=== PATIENT | male | born 1955 | race Caucasian/White ===

== ENCOUNTER 2018-02-06 08:24 | Inpatient (IN) ==
[2018-02-06] MEDS ORDERED: 0.9 % SODIUM CHLORIDE 1,000 ML IV ONE ×2 (08:35→09:46)
--- NOTE | 2018-02-06 09:08 | XRay Report ---
CLINICAL INFORMATION: Cough and shortness of breath COMPARISON: 02/04/2018 FINDINGS: The heart size, mediastinum and pulmonary vessels are unremarkable. The lungs are clear. There are no effusions. The bones and soft tissues are within normal limits. IMPRESSION: Normal chest. Interpreted and Authenticated by: Russel Leahy 02/06/18
[2018-02-06 09:46] LABS: Mean Cell Volume 87.1 fL (80.0-100.0); Mean Corpuscular HGB Conc 33.6 g/dL (31.0-36.0); Mean Corpuscular Hemoglobin 29.3 pg (26.0-34.0); Platelet Count 260 K/mcL (140-440); RBC 3.94 M/mcL (4.50-5.90)
[2018-02-06] MEDS ORDERED: IPRATROPIUM/ALBUTEROL 3 ML AMPUL.NEB NEB ONE (09:46)
[2018-02-06] MEDS ORDERED: methylPREDNISolone SOD SUCC 125 MG/2 ML VIAL IV ONE (09:48)
[2018-02-06] MEDS ORDERED: PIPERACILLIN SODIUM/TAZOBACTAM 3.375 GM in DEXTROSE 5% IN WATER 50 ML IV ONE (09:48)
--- NOTE | 2018-02-06 10:02 | Emergency Department Note ---
SOB HPI - General Source: patient Mode of arrival: wheelchair Limitations: no limitations <Bharathi Ortiz - Last Filed: 02/06/18 10:02> - General Source: patient, family <Desmond Nunes - Last Filed: 02/07/18 08:47> - General Chief Complaint: Shortness of Breath/Dyspnea Stated Complaint: Cough/sob Time Seen by Provider: 02/06/18 09:26 - History of Present Illness this is a 63 year old male coming into the ER with increasing c/o shortness of breath. States feels cold all the time. states feels fatigued all the time. notes decreased appetite. Was seen in the ER by Dr. Brooks and at that time was diagnosed with bronchitis. Prescribed antibiotics. States felt a bit better but just got worse today. went and saw the foot doctor for his diabetic ulcer on his leg today but was sent to the ER. denies chest pain, denies fevers, denies nausea, vomiting. does report loose stool but denies blood in stool. Patient reports glucose levels average 150 but last glucose measured was over 300 with an A1C over 10. Patient denies smoking hx but medical records states prior smoker. (Bharathi Ortiz) I saw this patient with student Dr. Bharathi Ortiz, fourth year medical student. I agree with his documentation above. I also was contacted about this patient by Dr. Hayes realty specialist who sees him as well-he advised me that he would be willing to consult on this patient if the patient was admitted but that he sent the patient over secondary to cough 63-year-old male with shortness of breath fatigue decreased appetite. Previously diagnosed with bronchitis 2 days ago and started on antibiotics but no steroids. Not getting better. Has diabetic ulcers, nonhealing wounds on right foot. Reports control of diabetes but A1c is over 10 (Desmond Nunes) - Related Data Home Medications Medication Instructions Recorded Confirmed aspirin 81 mg tablet,delayed 81 mg PO QDAY tab 04/07/15 02/06/18 release lisinopril 20 1 tab PO QDAY 02/03/18 02/06/18 mg-hydrochlorothiazide 12.5 mg tablet Blood Sugar Diagnostic [Contour] 0 b .ROUTE .MEDSUPPLY 02/06/18 02/06/18 Pen Needle, Diabetic [Incontrol 0 b .ROUTE .MEDSUPPLY 02/06/18 02/06/18 Pen Needle] Previous Rx's Medication Instructions Recorded glucagon (human recombinant) 1 mg 1 mg IM ONCE PRN #1 each 05/10/16 injection kit insulin glargine (U-300) 300 40 unit SUB-Q QHS #6 ml 11/25/17 unit/mL (1.5 mL) subcutaneous pen insulin lispro (U-100) 100 unit/mL See Label Instructions SUB-Q TID 12/27/17 subcutaneous pen #15 ml atorvastatin 20 mg tablet 20 mg PO QDAY #90 tab 01/13/18 Azithromycin [Zithromax] 250 mg PO DAILY #4 tab 02/04/18 Allergies Allergy/AdvReac Type Severity Reaction Status Date / Time No Known Drug Allergies Allergy Verified 02/06/18 08:25 Review of Systems All systems ED: reviewed and negative except as stated. <Desmond Nunes - Last Filed: 02/07/18 08:47> Past Medical History - Past Medical History Medical history: Reports: DM Surgical history ED: Reports: non-contributory - Social History smoking status: Former smoker <Bharathi Ortiz - Last Filed: 02/06/18 10:02> - Past Medical History Attestation: Yes: The following information was validated with the patient. Medical history: Reports: DM (With associated neuropathy), hyperlipidemia, other (Essential tremor, osteomyelitis) Surgical history ED: Reports: orthopedic, other (Prior amputation, multiple foot surgeries) - Social History smoking status: Former smoker <Desmond Nunes - Last Filed: 02/07/18 08:47> - Past Medical History PMFSH Narrative: Medical History Diabetic peripheral neuropathy (Chronic) Diabetic neuropathy (Chronic) Pain in left hip (Chronic) Pain in joint, pelvic region and thigh (Chronic) Corneal abrasion (Chronic) Foot ulcer (Chronic) Ulcer of lower limbs, except pressure ulcer (Chronic) Tremor, essential (Chronic) Peripheral neuropathy (Chronic) Osteomyelitis (Resolved) History of noncompliance with medical treatment (Chronic) Microalbuminuria (Chronic) Hypertension, essential (Chronic) Hyperlipidemia (Chronic) DM (diabetes mellitus), type 2, uncontrolled (Chronic) DM type 2 (diabetes mellitus, type 2) (Chronic) 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 Absent: wheezes, stridor Cardiovascular: Present: tachycardia, normal heart sounds Neurological: Present: alert, oriented X3 Psychiatric: Present: flat affect <Bharathi Ortiz - Last Filed: 02/06/18 10:02> <Desmond Nunes - Last Filed: 02/07/18 08:47> Thin male ill-appearing. Normocephalic atraumatic. Conjunctive are clear sclerae white and nonicteric. No nasal discharge but audible congestion. Oropharynx is pink and moist. Neck is supple without lymphadenopathy thyromegaly appreciated. Lungs initially with tight cough and end expiratory wheeze but this improved markedly after DuoNeb treatment. Heart is regular rate and rhythm no murmur appreciated. Abdomen soft nontender nondistended. No peritoneal signs or guarding. Right foot shows several open ulcers appear to be poorly healing. Please see wound care for complete description. I do not see purulent drainage however. +2 radial pulse. Alert oriented (Desmond Nunes) Vital Signs Temperature 96.5 F L 02/06/18 08:25 Pulse Rate 108 H 02/06/18 08:25 Respiratory Rate 18 02/06/18 08:25 Blood Pressure 146/64 02/06/18 08:25 Pulse Oximetry (%) 99 02/06/18 08:25 Temperature 98.6 F 02/07/18 04:01 Pulse Rate 80 02/07/18 06:01 Respiratory Rate 30 H 02/07/18 06:01 Blood Pressure 112/69 02/07/18 06:01 Pulse Oximetry (%) 97 02/07/18 06:01 Shortness of Breath/Dyspnea - Lab Data Result diagrams: 02/06/18 08:55 02/06/18 08:54 <Bharathi Ortiz - Last Filed: 02/06/18 10:02> - Lab Data Lab results reviewed: Yes I reviewed the patient's lab results. Result diagrams: 02/07/18 03:56 02/07/18 03:56 - Radiology Data Radiology results reviewed: Yes I reviewed the patient's radiology results. - EKG Data EKG attestation: Yes I reviewed and interpreted this EKG. <Desmond Nunes - Last Filed: 02/07/18 08:47> - Lab Data Lab Results 02/06/18 02/06/18 02/06/18 Range/Units 08:54 08:54 08:54 WBC (4.5-11.0) K/mcL RBC (4.50-5.90) M/mcL Hgb (13.5-16.5) g/dL Hct (41.0-55.0) % MCV (80.0-100.0) fL MCH (26.0-34.0) pg MCHC (31.0-36.0) g/dL RDW (11.5-14.5) % Plt Count (140-440) K/mcL MPV (7.4-10.4) fL Total Counted Seg Neutrophils % (38-78) % Band Neutrophils % (0-10) % Lymphocytes % (15-49) % Monocytes % (Manual) (1-12) % Eosinophils % (Manual) (0-7) % Platelet Estimate (NORMAL) RBC Morphology (NORMAL) ESR (0-15) mm/hr VBG Lactic Acid 4.9 H* (0.5-2.2) mmol/L Sodium 130 L (133-145) mmol/L Potassium 4.3 (3.3-5.1) mmol/L Chloride 91 L (96-108) mmol/L Carbon Dioxide 18 L (22-30) mmol/L Anion Gap 21.0 H (8-16) BUN 59 H (8-23) mg/dl Creatinine 1.7 H (0.7-1.2) mg/dl GFR Calculation 42 Glucose 316 H (70-105) mg/dL Calcium 9.1 (8.6-10.4) mg/dl Total Bilirubin 1.6 H (0.0-1.0) mg/dL AST 20 (0-37) U/l ALT 26 (0-40) U/l Alkaline Phosphatase 91 (39-117) U/L C-Reactive Protein (0.0-0.8) mg/dl Total Protein 8.0 (5.9-8.4) gm/dL Albumin 3.8 (3.2-5.2) gm/dL Globulin 4.2 H (2.2-3.7) gm/dL Albumin/Globulin Ratio 0.9 L (1.0-2.3) Procalcitonin 1.49 (<0.10) ng/mL Urine Color Urine Appearance Urine pH (5.0-9.0) Ur Specific [place] (1.000-1.035) Urine Protein (NEG) mg/dL Urine Glucose (UA) (NEG) mg/dL Urine Ketones (NEG) mg/dL Urine Occult Blood (<0.03) mg/dL Urine Nitrate (NEG) Urine Bilirubin (NEG) mg/dL Urine Urobilinogen (NEG) mg/dL Ur Leukocyte Esterase (NEG) /uL Urine RBC (0-1) /hpf Urine WBC (0-4) /hpf Ur Squamous Epith Cells (0-4) /hpf Urine Bacteria (0) /hpf Hyaline Casts (0-2) /lpf Urine Mucus (0) /hpf Ur Culture Indicated? 02/06/18 02/06/18 02/06/18 Range/Units 08:55 08:55 08:55 WBC 24.7 H (4.5-11.0) K/mcL RBC 3.94 L (4.50-5.90) M/mcL Hgb 11.5 L (13.5-16.5) g/dL Hct 34.4 L (41.0-55.0) % MCV 87.1 (80.0-100.0) fL MCH 29.3 (26.0-34.0) pg MCHC 33.6 (31.0-36.0) g/dL RDW 14.0 (11.5-14.5) % Plt Count 260 (140-440) K/mcL MPV 9.9 (7.4-10.4) fL Total Counted 100 Seg Neutrophils % 84 H (38-78) % Band Neutrophils % 1 (0-10) % Lymphocytes % 4 L (15-49) % Monocytes % (Manual) 10 (1-12) % Eosinophils % (Manual) 1 (0-7) % Platelet Estimate Normal (NORMAL) RBC Morphology Normal (NORMAL) ESR 115 H (0-15) mm/hr VBG Lactic Acid (0.5-2.2) mmol/L Sodium (133-145) mmol/L Potassium (3.3-5.1) mmol/L Chloride (96-108) mmol/L Carbon Dioxide (22-30) mmol/L Anion Gap (8-16) BUN (8-23) mg/dl Creatinine (0.7-1.2) mg/dl GFR Calculation Glucose (70-105) mg/dL Calcium (8.6-10.4) mg/dl Total Bilirubin (0.0-1.0) mg/dL AST (0-37) U/l ALT (0-40) U/l Alkaline Phosphatase (39-117) U/L C-Reactive Protein 37.9 H (0.0-0.8) mg/dl Total Protein (5.9-8.4) gm/dL Albumin (3.2-5.2) gm/dL Globulin (2.2-3.7) gm/dL Albumin/Globulin Ratio (1.0-2.3) Procalcitonin (<0.10) ng/mL Urine Color Urine Appearance Urine pH (5.0-9.0) Ur Specific [place] (1.000-1.035) Urine Protein (NEG) mg/dL Urine Glucose (UA) (NEG) mg/dL Urine Ketones (NEG) mg/dL Urine Occult Blood (<0.03) mg/dL Urine Nitrate (NEG) Urine Bilirubin (NEG) mg/dL Urine Urobilinogen (NEG) mg/dL Ur Leukocyte Esterase (NEG) /uL Urine RBC (0-1) /hpf Urine WBC (0-4) /hpf Ur Squamous Epith Cells (0-4) /hpf Urine Bacteria (0) /hpf Hyaline Casts (0-2) /lpf Urine Mucus (0) /hpf Ur Culture Indicated? 02/06/18 Range/Units 14:09 WBC (4.5-11.0) K/mcL RBC (4.50-5.90) M/mcL Hgb (13.5-16.5) g/dL Hct (41.0-55.0) % MCV (80.0-100.0) fL MCH (26.0-34.0) pg MCHC (31.0-36.0) g/dL RDW (11.5-14.5) % Plt Count (140-440) K/mcL MPV (7.4-10.4) fL Total Counted Seg Neutrophils % (38-78) % Band Neutrophils % (0-10) % Lymphocytes % (15-49) % Monocytes % (Manual) (1-12) % Eosinophils % (Manual) (0-7) % Platelet Estimate (NORMAL) RBC Morphology (NORMAL) ESR (0-15) mm/hr VBG Lactic Acid (0.5-2.2) mmol/L Sodium (133-145) mmol/L Potassium (3.3-5.1) mmol/L Chloride (96-108) mmol/L Carbon Dioxide (22-30) mmol/L Anion Gap (8-16) BUN (8-23) mg/dl Creatinine (0.7-1.2) mg/dl GFR Calculation Glucose (70-105) mg/dL Calcium (8.6-10.4) mg/dl Total Bilirubin (0.0-1.0) mg/dL AST (0-37) U/l ALT (0-40) U/l Alkaline Phosphatase (39-117) U/L C-Reactive Protein (0.0-0.8) mg/dl Total Protein (5.9-8.4) gm/dL Albumin (3.2-5.2) gm/dL Globulin (2.2-3.7) gm/dL Albumin/Globulin Ratio (1.0-2.3) Procalcitonin (<0.10) ng/mL Urine Color Yellow Urine Appearance Clear Urine pH 5.0 (5.0-9.0) Ur Specific [place] 1.023 (1.000-1.035) Urine Protein Neg (NEG) mg/dL Urine Glucose (UA) >=500 A (NEG) mg/dL Urine Ketones 5/tr A (NEG) mg/dL Urine Occult Blood Neg (<0.03) mg/dL Urine Nitrate Neg (NEG) Urine Bilirubin Neg (NEG) mg/dL Urine Urobilinogen Neg (NEG) mg/dL Ur Leukocyte Esterase Neg (NEG) /uL Urine RBC 1 (0-1) /hpf Urine WBC 1 (0-4) /hpf Ur Squamous Epith Cells < 1 (0-4) /hpf Urine Bacteria 0 (0) /hpf Hyaline Casts 10 H (0-2) /lpf Urine Mucus Few (0) /hpf Ur Culture Indicated? No - Radiology Data Chest x-ray shows no acute disease process but stigmata COPD. X-ray of the right foot shows no evidence of osteomyelitis but some soft tissue edema (Desmond Nunes) - EKG Data EKG results narrative: EKG shows a rate of 101 T-wave depression in 1 aVL which is nonspecific. Sinus rhythm (Desmond Nunes) Disposition <Bharathi Ortiz - Last Filed: 02/06/18 10:02> Pt seen by LAB AIDE/PA only: No <Desmond Nunes - Last Filed: 02/07/18 08:47> Clinical Impression: Hyponatremia Sepsis Qualifiers: Sepsis type: sepsis due to unspecified organism Qualified Code(s): A41.9 - Sepsis, unspecified organism DM (diabetes mellitus), type 2, uncontrolled Qualifiers: Diabetes mellitus terminal makeup operator insulin use: with terminal makeup operator use Diabetes mellitus complication status: with neurologic complications Diabetes mellitus complication detail: with polyneuropathy Qualified Code(s): E11.42 - Type 2 diabetes mellitus with diabetic polyneuropathy Summary: Initially seen and evaluated with concern for possible SIRS versus sepsis Workup shows leukocytosis, tachypnea tachycardia. Cultures done and antibiotic started with vancomycin and Zosyn. Solu-Medrol and DuoNeb were done for tight cough/end expiratory wheeze-this did help Discussed case with Dr. Francisco hospitalist who agreed to accept patient for inpatient admission (Desmond Nunes) Disposition: Xfer As Inpt ([facility]) Condition: Critical
[2018-02-06 10:09] LABS: ALT/SGPT 26 U/l (0-40); Albumin 3.8 gm/dL (3.2-5.2); Albumin/Globulin Ratio 0.9 (1.0-2.3); Alkaline Phosphatase 91 U/L (39-117); Blood Urea Nitrogen 59 mg/dl (8-23)
[2018-02-06 10:11] LABS: Band Neutrophils % 1 % (0-10); Eosinophils % (Manual) 1 % (0-7); Lymphocytes % 4 % (15-49); Monocytes % (Manual) 10 % (1-12); Platelet Estimate NORMAL (NORMAL); RBC Morphology NORMAL (NORMAL); Segmented Neutrophils % 84 % (38-78)
[2018-02-06] MEDS ORDERED: VANCOMYCIN 1,000 MG in 0.9 % SODIUM CHLORIDE 250 ML IV ONE (12:23)
--- NOTE | 2018-02-06 13:12 | Internal Med History&Physical ---
Medical - H&P: [facility] Patient information: Note initiated : 02/06/18 at 1:08 pm Service Date, if different from initiated Date: [] Patient: Prince Yan a 63 y/o M admitted on for Cough/SOB. Chief Complaint: [] Chief complaint: right ankle/foot redness, shortness of breath History of present illness: Mr. Yna is a 63 year old M with a history of poorly controlled diabetes, peripheral vascular disease, and nonhealing foot ulcers due to neuropathy who comes in with weakness shortness of breath and worsening right ankle redness discharge and swelling along with pain and shaking chills. Patient is a wound care patient and has been followed up by Dr. Hayes. Patient has noted worsening redness along the ankle/dorsum of the right foot and heel with associated discharge which was periodically evaluated at wound care clinic. patient has been using a cast and following up weekly. patient thinks that the ulcer has progressed due to friction from the cast. Symptoms have progressed over the last 2 weeks. He has associated fatigue, malaise and loss of appetite, lethargy and diminished functionality. He later developed shortness of breath. He now presents to the ER. Initial workup was significant for white count 25,000 along with systolics in the 90s and elevated lactic acid 4.9. foot x-ray reveals plantar soft tissue swelling. Recent A1c during office visit was 10.4 . His blood sugar today is 573. patient received first dose of antibiotics after cultures were drawn along with crystalloids. Hospitalist service was consulted in light of severe sepsis with hypotension and elevated lactate. At the time of evaluation patient is alert and oriented. He was able to answer most questions. Denies recent falls trauma except for friction from the cast. He does not feel pain secondary neuropathy, however he noticed worsening redness and swelling. He denies fever or arthralgia myalgia headache photophobia cough or shortness of breath. Denies diarrhea dysuria. He endorses to history as above. He is currently accompanied with his sister/ niece and ex-. significant to presenting history his diabetes is poorly controlled. He has attempted outpatient diabetic education with limited success. he is currently on basal bolus regime however his A1c remains elevated over 10. 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) 11/26/2014 Diabetic neuropathy (Chronic) Diabetic peripheral neuropathy (Chronic) Foot ulcer (Chronic) Ulcer of other part of foot History of noncompliance with medical treatment (Chronic) 03/16/2015 Hyperlipidemia (Chronic) Hypertension, essential (Chronic) Microalbuminuria (Chronic) 11/26/2014 Pain in joint, pelvic region and thigh (Chronic) Pain in left hip (Chronic) Peripheral neuropathy (Chronic) 11/26/2014 Tremor, essential (Chronic) tremor; essential/ other specified forms Ulcer of lower limbs, except pressure ulcer (Chronic) 11/30/14 - Yourzek; Right Osteomyelitis (Resolved) osteomyelitis- unspecified/other specific sites Surgical history: History of foot surgery (Chronic) Foot surgery, left. Left great amputated 06/2012 History of foot surgery (Chronic) Foot surgery, right. ~2010. Right great toe amputation History of surgery (Chronic) Other; Extensive wound care management Pertinent family history: Father Type 2 diabetes mellitus Malignant neoplasm Skin cancer Sister Hypercholesterolemia Acute myocardial infarction Unknown Essential hypertension Social history: lives alone marital status: occupational status: disabled leisure activities: other, fishing, hunting smoking status: Former smoker alcohol intake frequency: holiday/special occasion only substance use type: former substance user Drug use: none Medical - H&P: Meds Home Medications Medication Instructions Recorded Confirmed Type aspirin 81 mg tablet,delayed 81 mg PO QDAY tab 04/07/15 02/06/18 History release glucagon (human recombinant) 1 mg 1 mg IM ONCE PRN #1 each 05/10/16 02/06/18 Rx injection kit insulin glargine (U-300) 300 40 unit SUB-Q QHS #6 ml 11/25/17 02/06/18 Rx unit/mL (1.5 mL) subcutaneous pen insulin lispro (U-100) 100 unit/mL See Label Instructions SUB-Q TID 12/27/17 Rx subcutaneous pen #15 ml atorvastatin 20 mg tablet 20 mg PO QDAY #90 tab 01/13/18 02/06/18 Rx lisinopril 20 1 tab PO QDAY 02/03/18 02/06/18 History mg-hydrochlorothiazide 12.5 mg tablet Azithromycin [Zithromax] 250 mg PO DAILY #4 tab 02/04/18 02/06/18 Rx Blood Sugar Diagnostic [Contour] 0 b .ROUTE .MEDSUPPLY 02/06/18 02/06/18 History Pen Needle, Diabetic [Incontrol 0 b .ROUTE .MEDSUPPLY 02/06/18 02/06/18 History Pen Needle] Allergies Allergy/AdvReac Type Severity Reaction Status Date / Time No Known Drug Allergies Allergy Verified 02/06/18 08:25 Medical - H&P: Exam - Constitutional Vitals: Temp Pulse Resp BP Pulse Ox 96.5 F L 91 H 28 H 114/64 97 02/06/18 08:25 02/06/18 11:37 02/06/18 11:16 02/06/18 11:31 02/06/18 11:37 General appearance: no acute distress Exam: pupils symmetric Alert oriented no anxiety Eye movements normal Oral cavity dry no eardischarge Head normocephalic Neck no lymphadenopathy S1 and S2 regular Chest clear to auscultation abdomen soft Lower extremity examination right foot/ankle redness and swelling along with streaking erythema/ulceration dorsum of foot and heel. Surrounding tissue edema No cyanosis clubbing No joint swelling Skin no suspicious lesion Psych alert cooperative Neuro nonfocal Medical - H&P: Reslt - Labs CBC & Chem 7: 02/06/18 08:55 02/06/18 08:54 Labs: Short CBC 02/06/18 Range/Units 08:55 WBC 24.7 H (4.5-11.0) K/mcL Hgb 11.5 L (13.5-16.5) g/dL Hct 34.4 L (41.0-55.0) % Plt Count 260 (140-440) K/mcL BMP 02/06/18 08:54 Sodium 130 L Potassium 4.3 Chloride 91 L Carbon Dioxide 18 L BUN 59 H Creatinine 1.7 H Glucose 316 H Calcium 9.1 Liver Function 02/06/18 Range/Units 08:54 Total Bilirubin 1.6 H (0.0-1.0) mg/dL AST 20 (0-37) U/l ALT 26 (0-40) U/l Alkaline Phosphatase 91 (39-117) U/L Albumin 3.8 (3.2-5.2) gm/dL Medical - H&P: A/P (1) Severe sepsis Current visit: Yes Status: Acute * Right foot/ankle cellulitis/lymphangitis/nonhealing ulcer. Empiric coverage for Streptococcus/gram negatives and anaerobes. Start Zosyn and vancomycin. Wound cultures. Foot imaging no evidence of osteomyelitis. send wound cultures * Severe sepsis with hypotension , end organ dysfunction. white count 25,000. continue management per guidelines. Venous lactate 4.9. Pancultures * Acute renal failure secondary to severe sepsis. creatinine 1.7 BUN 59. * Lower extremity diabetic ulcer managed by Dr. Hayes * hyperlipidemia-start statin * DM type II- poor outpatient control with A1c over 10. continue basal prandial insulin * history of hypertension-hold home meds in light of profound sepsis * prophylaxis heparin Plan * Sepsis management per guidelines * Broad antibiotic coverage * Diabetes education/Dietary consult * Wound care consult * Monitor renal function * Pre-existing medical condition management home meds
--- NOTE | 2018-02-06 13:32 | XRay Report ---
CLINICAL INFORMATION: Sepsis foot wound COMPARISON: 01/13/2018 FINDINGS: First ray amputation changes at the PIP again noted. The stump is unremarkable - no specific radiographic evidence of osteomyelitis. Hammertoe deformity second through fifth digits seen - as before. Minor ossification the plantar and Achilles tendon insertion seen as before. There is mild plantar soft tissue swelling the in midfoot and hindfoot IMPRESSION: Plantar soft tissue swelling mid and hindfoot. First ray amputation changes at the PIP level. The stump is unremarkable. No specific radiographic evidence of osteomyelitis Marked hammertoe deformities second through fifth digits Pes cavus Interpreted and Authenticated by: Russel Leahy 02/06/18
[2018-02-06] MEDS ORDERED: POTASSIUM CHLORIDE 20 MEQ PACKET PO PRN (14:43)
[2018-02-06] MEDS ORDERED: ACETAMINOPHEN 325 MG TABLET PO PRN (14:43)
[2018-02-06] MEDS ORDERED: NOREPINEPHRINE BITARTRATE 16 MG in 0.9 % SODIUM CHLORIDE 234 ML IV SCH (14:43)
[2018-02-06] MEDS ORDERED: ONDANSETRON 4 MG/2 ML VIAL IV PRN (14:43)
[2018-02-06] MEDS ORDERED: 0.9 % SODIUM CHLORIDE 1,000 ML IV SCH (14:43)
[2018-02-06] MEDS ORDERED: MAGNESIUM SULFATE 2 GM/50 ML BAG IV PRN (14:43)
[2018-02-06] MEDS ORDERED: DEXTROSE 31 GM ORAL.SUSP PO PRN (14:43)
[2018-02-06] MEDS ORDERED: DEXTROSE 50% 50 ML VIAL IV PRN (14:43)
[2018-02-06] MEDS ORDERED: VANCOMYCIN PER PHARMACY IV SCH (14:43)
[2018-02-06] MEDS ORDERED: ACETAMINOPHEN 1,000 MG/100 ML BOTTLE IV PRN (14:43)
[2018-02-06 14:56] LABS: Appearance,Urine CLEAR; Bacteria,Urine 0 /hpf (0); Bilirubin,Urine NEG (NEG); Color,Urine YELLOW; Glucose,Urine (UA) >=500 mg/dL (NEG); Leukocyte Esterase,Urine NEG /uL (NEG); Mucus,Urine FEW /hpf (0); Protein,Urine NEG (NEG); Specific Gravity,Urine 1.023 (1.000-1.035); Urine Blood NEG mg/dL (<0.03); Urine Hyaline Cast 10 /lpf (0-2); Urine RBC 1 /hpf (0-1); Urine Squamous Epithelial Cell < 1 /hpf (0-4); Urine WBC 1 /hpf (0-4); Urobilinogen,Urine NEG (NEG)
[2018-02-06 15:23] LABS: C-Reactive Protein 37.9 mg/dl (0.0-0.8)
[2018-02-06] MEDS: INSULIN LISPRO 1 UNIT/0.01 ML UNIT SQ SCH ×4 (15:26→21:37)
[2018-02-06] MEDS: 0.9 % SODIUM CHLORIDE 10 ML SYRINGE IV SCH ×2 (15:32→21:57)
[2018-02-06] MEDS ORDERED: INSULIN GLARGINE, HUMAN 1 UNIT/0.01 ML SQ ONE (15:51)
[2018-02-06] MEDS ORDERED: sitaGLIPtin 100 MG TABLET PO ONE (15:59)
[2018-02-06] MEDS: PIPERACILLIN SODIUM/TAZOBACTAM 3.375 GM in DEXTROSE 5% IN WATER 50 ML IV SCH ×2 (17:16→23:44)
--- NOTE | 2018-02-06 18:34 | General Surgery Consult Note ---
History of Present Illness Patient information: Note initiated : 02/06/18 at 6:26 pm Service Date, if different from initiated Date: [] Patient: Prince Yan 63 y/o M admitted on 02/06/18 for Cough/SOB. Chief Complaint: []I saw the patient in ICU 120/C this evening and discussed his progress with Bella BURGESS and with Dr. Maryam ZARATE Hospitalist Physician. Patient seen in wound care this morning and transferred to ER with evolving SEPSIS and SIRS. He has a long standing h/o DM, PAD and prior foot surgeries and ulcers. I reviewed notes of ED physician and results of lab works and imaging studies. Patient now on IV fluids , IV antibiotics and other supportive care and STABILIZING. His wounds were reviewed and treatment started. Medications and Allergies Home Medications Medication Instructions Recorded Confirmed Type aspirin 81 mg tablet,delayed 81 mg PO QDAY tab 04/07/15 02/06/18 History release glucagon (human recombinant) 1 mg 1 mg IM ONCE PRN #1 each 05/10/16 02/06/18 Rx injection kit insulin glargine (U-300) 300 40 unit SUB-Q QHS #6 ml 11/25/17 02/06/18 Rx unit/mL (1.5 mL) subcutaneous pen insulin lispro (U-100) 100 unit/mL See Label Instructions SUB-Q TID 12/27/17 Rx subcutaneous pen #15 ml atorvastatin 20 mg tablet 20 mg PO QDAY #90 tab 01/13/18 02/06/18 Rx lisinopril 20 1 tab PO QDAY 02/03/18 02/06/18 History mg-hydrochlorothiazide 12.5 mg tablet Azithromycin [Zithromax] 250 mg PO DAILY #4 tab 02/04/18 02/06/18 Rx Blood Sugar Diagnostic [Contour] 0 b .ROUTE .MEDSUPPLY 02/06/18 02/06/18 History Pen Needle, Diabetic [Incontrol 0 b .ROUTE .MEDSUPPLY 02/06/18 02/06/18 History Pen Needle] Allergies Allergy/AdvReac Type Severity Reaction Status Date / Time No Known Drug Allergies Allergy Verified 02/06/18 08:25 Exam Temp Pulse Resp BP Pulse Ox 98.3 F 86 22 130/76 100 02/06/18 16:37 02/06/18 14:43 02/06/18 18:01 02/06/18 18:01 02/06/18 18:01 - General physical appearance well developed, well nourished, no distress, no pain - Eyes PERRL, normal ocular movement - ENT normal pinna, normal nares, normal mucosa, no congestion - Head Head exam IM: Present: atraumatic, normal inspection, normocephalic - Neck no masses, no bruits, trachea midline, no venous distension - Cardiovascular Cardiovascular exam IM: Present: normal rate and rhythm - Respiratory normal expansion, normal respiratory effort, clear to auscultation - Abdomen Abdomen: Present: soft, non tender, bowel sounds - Neurologic Present: normal coordination, other (Diabetes with peripheral neuropathy both feet, ankles and lower legs, Moves all extremities. NO lateralizing signs. ) - Psychiatric Present: oriented to time, oriented to person, oriented to place, speech is normal, memory intact, other (Patient's family members in room. Spoke with them. ) Results - Labs 02/06/18 08:55 02/06/18 08:54 Abnormal lab results 02/06/18 02/06/18 02/06/18 Range/Units 08:54 08:54 08:55 WBC 24.7 H (4.5-11.0) K/mcL RBC 3.94 L (4.50-5.90) M/mcL Hgb 11.5 L (13.5-16.5) g/dL Hct 34.4 L (41.0-55.0) % Seg Neutrophils % 84 H (38-78) % Lymphocytes % 4 L (15-49) % ESR (0-15) mm/hr VBG Lactic Acid 4.9 H* (0.5-2.2) mmol/L Sodium 130 L (133-145) mmol/L Chloride 91 L (96-108) mmol/L Carbon Dioxide 18 L (22-30) mmol/L Anion Gap 21.0 H (8-16) BUN 59 H (8-23) mg/dl Creatinine 1.7 H (0.7-1.2) mg/dl Glucose 316 H (70-105) mg/dL Total Bilirubin 1.6 H (0.0-1.0) mg/dL C-Reactive Protein (0.0-0.8) mg/dl Globulin 4.2 H (2.2-3.7) gm/dL Albumin/Globulin Ratio 0.9 L (1.0-2.3) Urine Glucose (UA) (NEG) mg/dL Urine Ketones (NEG) mg/dL Hyaline Casts (0-2) /lpf 02/06/18 02/06/18 02/06/18 Range/Units 08:55 08:55 14:09 WBC (4.5-11.0) K/mcL RBC (4.50-5.90) M/mcL Hgb (13.5-16.5) g/dL Hct (41.0-55.0) % Seg Neutrophils % (38-78) % Lymphocytes % (15-49) % ESR 115 H (0-15) mm/hr VBG Lactic Acid (0.5-2.2) mmol/L Sodium (133-145) mmol/L Chloride (96-108) mmol/L Carbon Dioxide (22-30) mmol/L Anion Gap (8-16) BUN (8-23) mg/dl Creatinine (0.7-1.2) mg/dl Glucose (70-105) mg/dL Total Bilirubin (0.0-1.0) mg/dL C-Reactive Protein 37.9 H (0.0-0.8) mg/dl Globulin (2.2-3.7) gm/dL Albumin/Globulin Ratio (1.0-2.3) Urine Glucose (UA) >=500 A (NEG) mg/dL Urine Ketones 5/tr A (NEG) mg/dL Hyaline Casts 10 H (0-2) /lpf Diabetes panel 02/06/18 Range/Units 08:54 Sodium 130 L (133-145) mmol/L Potassium 4.3 (3.3-5.1) mmol/L Chloride 91 L (96-108) mmol/L Carbon Dioxide 18 L (22-30) mmol/L BUN 59 H (8-23) mg/dl Creatinine 1.7 H (0.7-1.2) mg/dl Glucose 316 H (70-105) mg/dL Calcium 9.1 (8.6-10.4) mg/dl AST 20 (0-37) U/l ALT 26 (0-40) U/l Alkaline Phosphatase 91 (39-117) U/L Total Protein 8.0 (5.9-8.4) gm/dL Albumin 3.8 (3.2-5.2) gm/dL Calcium panel 02/06/18 Range/Units 08:54 Calcium 9.1 (8.6-10.4) mg/dl Albumin 3.8 (3.2-5.2) gm/dL Pituitary panel 02/06/18 Range/Units 08:54 Sodium 130 L (133-145) mmol/L Potassium 4.3 (3.3-5.1) mmol/L Chloride 91 L (96-108) mmol/L Carbon Dioxide 18 L (22-30) mmol/L BUN 59 H (8-23) mg/dl Creatinine 1.7 H (0.7-1.2) mg/dl Glucose 316 H (70-105) mg/dL Calcium 9.1 (8.6-10.4) mg/dl Adrenal panel 02/06/18 Range/Units 08:54 Sodium 130 L (133-145) mmol/L Potassium 4.3 (3.3-5.1) mmol/L Chloride 91 L (96-108) mmol/L Carbon Dioxide 18 L (22-30) mmol/L BUN 59 H (8-23) mg/dl Creatinine 1.7 H (0.7-1.2) mg/dl Glucose 316 H (70-105) mg/dL Calcium 9.1 (8.6-10.4) mg/dl Total Bilirubin 1.6 H (0.0-1.0) mg/dL AST 20 (0-37) U/l ALT 26 (0-40) U/l Alkaline Phosphatase 91 (39-117) U/L Total Protein 8.0 (5.9-8.4) gm/dL Albumin 3.8 (3.2-5.2) gm/dL All other labs normal. Assessment and Plan (1) Sepsis Status: Acute Priority: High Qualifiers: Sepsis type: sepsis due to unspecified organism Qualified Code(s): A41.9 - Sepsis, unspecified organism (2) Severe sepsis Status: Acute Priority: High (3) Diabetic peripheral neuropathy Status: Chronic Priority: Medium (4) Skin ulcer, chronic Status: Chronic Priority: Medium
[2018-02-06] MEDS ORDERED: SENNOSIDES/DOCUSATE SODIUM 1 TAB TABLET PO SCH (21:00)
[2018-02-06] MEDS ORDERED: INSULIN GLARGINE, HUMAN 1 UNIT/0.01 ML SQ SCH (21:00)
[2018-02-06] MEDS: VANCOMYCIN 1,000 MG in 0.9 % SODIUM CHLORIDE 250 ML IV SCH (21:03)
[2018-02-06] MEDS: DOCUSATE SODIUM 100 MG CAPSULE PO SCH (21:36)
[2018-02-06] MEDS: HEPARIN 5,000 UNIT/ML VIAL SQ SCH (21:36)
[2018-02-07 05:15] LABS: Mean Cell Volume 87.2 fL (80.0-100.0); Mean Corpuscular HGB Conc 34.2 g/dL (31.0-36.0); Mean Corpuscular Hemoglobin 29.8 pg (26.0-34.0); Platelet Count 152 K/mcL (140-440); RBC 3.22 M/mcL (4.50-5.90); Red Cell Distribution Width 14.2 % (11.5-14.5)
[2018-02-07 05:36] LABS: ALT/SGPT 23 U/l (0-40); Albumin/Globulin Ratio 0.8 (1.0-2.3); Alkaline Phosphatase 97 U/L (39-117); Bilirubin,Direct 0.2 mg/dL (0.0-0.3); Blood Urea Nitrogen 51 mg/dl (8-23); Gamma Glutamyl Transpeptidase 19 U/L (8-61); Uric Acid 4.9 mg/dL (2.5-8.0)
[2018-02-07] MEDS: PIPERACILLIN SODIUM/TAZOBACTAM 3.375 GM in DEXTROSE 5% IN WATER 50 ML IV SCH ×4 (05:40→23:52)
[2018-02-07] MEDS: 0.9 % SODIUM CHLORIDE 10 ML SYRINGE IV SCH ×3 (05:40→20:27)
[2018-02-07] MEDS: INSULIN LISPRO 1 UNIT/0.01 ML UNIT SQ SCH ×7 (07:53→20:25)
[2018-02-07] MEDS: HEPARIN 5,000 UNIT/ML VIAL SQ SCH ×2 (07:54→20:25)
[2018-02-07] MEDS: DOCUSATE SODIUM 100 MG CAPSULE PO SCH ×2 (07:54→20:25)
[2018-02-07 08:06] LABS: Lymphocytes % 7 % (15-49); Monocytes % (Manual) 4 % (1-12); Platelet Estimate NORMAL (NORMAL); RBC Morphology NORMAL (NORMAL); Segmented Neutrophils % 89 % (38-78)
[2018-02-07] MEDS ORDERED: ASPIRIN 81 MG TAB.CHEW PO SCH (09:00)
[2018-02-07] MEDS ORDERED: ATORVASTATIN 20 MG TABLET PO SCH (09:00)
[2018-02-07] MEDS ORDERED: MULTIVIT,THER IRON,CA,FA & MIN 1 TABLET PO SCH (09:00)
[2018-02-07] MEDS ORDERED: sitaGLIPtin 100 MG TABLET PO SCH (09:00)
--- NOTE | 2018-02-07 09:06 | Internal Med Progress Note ---
Medical - PN: Subj Patient information: Note initiated : 02/07/18 at 9:03 am Service Date, if different from initiated Date: [] Patient: Prince Yan a 63 y/o M admitted on 02/06/18 for Cough/SOB. Chief Complaint: [] Interval history: Mr. Yan is a 63 year old M with a history of poorly controlled diabetes, peripheral vascular disease, and nonhealing foot ulcers due to neuropathy who comes in with weakness shortness of breath and worsening right ankle redness discharge and swelling along with pain and shaking chills. Patient is a wound care patient and has been followed up by Dr. Hayes. Patient has noted worsening redness along the ankle/dorsum of the right foot and heel with associated discharge which was periodically evaluated at wound care clinic. patient has been using a cast and following up weekly. patient thinks that the ulcer has progressed due to friction from the cast. Symptoms have progressed over the last 2 weeks. He has associated fatigue, malaise and loss of appetite, lethargy and diminished functionality. He later developed shortness of breath. He now presents to the ER. Initial workup was significant for white count 25,000 along with systolics in the 90s and elevated lactic acid 4.9. foot x-ray reveals plantar soft tissue swelling. Recent A1c during office visit was 10.4 . His blood sugar today is 573. patient received first dose of antibiotics after cultures were drawn along with crystalloids. Hospitalist service was consulted in light of severe sepsis with hypotension and elevated lactate. At the time of evaluation patient is alert and oriented. He was able to answer most questions. Denies recent falls trauma except for friction from the cast. He does not feel pain secondary neuropathy, however he noticed worsening redness and swelling. He denies fever or arthralgia myalgia headache photophobia cough or shortness of breath. Denies diarrhea dysuria. He endorses to history as above. He is currently accompanied with his sister/ niece and ex-. significant to presenting history his diabetes is poorly controlled. He has attempted outpatient diabetic education with limited success. he is currently on basal bolus regime however his A1c remains elevated over 10. February 07-patient clinically improving. White count down from 25->14. Lactic acid normalized. creatinine down from 1.7-1.2. On antibiotic coverage. case discussed with Dr. Hayes wound care physician. Patient would not require debridement at this time. Also patient has shown remarkable improvement in the last 24 hours with resolution of sepsis. He'll be downgraded to medical floor from ICU. Anticipate 10-14 days antibiotics along with continued wound care. . - Constitutional Vitals: Vital Signs Temp Pulse Resp BP Pulse Ox 98.6 F 80 30 H 112/69 97 02/07/18 04:01 02/07/18 06:01 02/07/18 06:01 02/07/18 06:01 02/07/18 06:01 Period Temp Pulse Resp BP Sys/Ndiaye Pulse Ox Last 24 Hr 96.5 F-98.6 F 78-102 15-35 89-137/58-81 97-100 Intake and Output 02/06/18 02/07/18 02/07/18 21:59 05:59 13:59 Intake Total 590 / 590 300 / 300 50 / 50 Output Total 900 / 900 Balance -310 / -310 300 / 300 50 / 50 Weight 162 lb 6.4 oz Intake & Output: Intake & Output 02/06/18 02/07/18 02/07/18 21:59 05:59 13:59 Intake Total 590 / 590 300 / 300 50 / 50 Output Total 900 / 900 Balance -310 / -310 300 / 300 50 / 50 Weight 162 lb 6.4 oz Intake: IV 50 / 50 300 / 300 50 / 50 Zosyn 3.375 gm In Dextrose 5% 50 / 50 50 / 50 50 / 50 in Water 50 ml @ 100 mls/hr IV Q6H [facility] Rx#:[id number] Vancomycin 1,000 mg In Sodium 250 / 250 Chloride 0.9% 250 ml @ 250 mls/ hr IV Q12H [facility] Rx#:[id number] Oral 540 / 540 Output: Urine/Stool Mix 900 / 900 Other: Meal Dinner Carmelo Percent of Meal Consumed 100% 100% Feeding Ability Assist with Tray Set Up Independent Stool Size Moderate Stool Color Brown Stool Consistency Loose # Voids 1 # Bowel Movements 1 General appearance: no acute distress Exam: Alert oriented nonlabored breathing Nondistended abdomen No anxiety Right ankle redness much improved Tachycardia resolved no telemetry events Medical - PN: Obj Da - Labs CBC & Chem 7: 02/07/18 03:56 02/07/18 03:56 Labs: Abnormal Lab Results 02/07/18 02/07/18 02/06/18 03:56 03:56 14:09 WBC 14.6 H RBC 3.22 L Hgb 9.6 L Hct 28.1 L Seg Neutrophils % 89 H Lymphocytes % 7 L ESR VBG Lactic Acid Sodium Chloride Carbon Dioxide 20 L Anion Gap BUN 51 H Creatinine Glucose 279 H Calcium 8.3 L Phosphorus 2.6 L Magnesium 2.7 H Total Bilirubin Lactate Dehydrogenase 363 H C-Reactive Protein Albumin 3.0 L Globulin Albumin/Globulin Ratio 0.8 L Urine Glucose (UA) >=500 A Urine Ketones 5/tr A Hyaline Casts 10 H 02/06/18 02/06/18 02/06/18 08:55 08:55 08:55 WBC 24.7 H RBC 3.94 L Hgb 11.5 L Hct 34.4 L Seg Neutrophils % 84 H Lymphocytes % 4 L ESR 115 H VBG Lactic Acid Sodium Chloride Carbon Dioxide Anion Gap BUN Creatinine Glucose Calcium Phosphorus Magnesium Total Bilirubin Lactate Dehydrogenase C-Reactive Protein 37.9 H Albumin Globulin Albumin/Globulin Ratio Urine Glucose (UA) Urine Ketones Hyaline Casts 02/06/18 02/06/18 08:54 08:54 WBC RBC Hgb Hct Seg Neutrophils % Lymphocytes % ESR VBG Lactic Acid 4.9 H* Sodium 130 L Chloride 91 L Carbon Dioxide 18 L Anion Gap 21.0 H BUN 59 H Creatinine 1.7 H Glucose 316 H Calcium Phosphorus Magnesium Total Bilirubin 1.6 H Lactate Dehydrogenase C-Reactive Protein Albumin Globulin 4.2 H Albumin/Globulin Ratio 0.9 L Urine Glucose (UA) Urine Ketones Hyaline Casts Meds: Medications Acetaminophen (Tylenol) 650 mg PO Q4-6HP PRN PRN Reason: PAIN/FEVER > 101 Aspirin (Aspirin) 81 mg PO DAILY [facility] Last Admin: 02/07/18 07:54 Dose: 81 mg Atorvastatin Calcium (Lipitor) 20 mg PO QDAY [facility] Last Admin: 02/07/18 07:57 Dose: 20 mg Dextrose (Dextrose 50%) 0 ml IV UD PRN PRN Reason: Hypoglycemia Diagnostic Test (Pha) (Accu-Chek) 1 each FS ACHS [facility] Last Admin: 02/07/18 07:49 Dose: 1 each Docusate Sodium (Colace) 100 mg PO BID [facility] Last Admin: 02/07/18 07:54 Dose: 100 mg Glucose (Insta-Glucose) 15 gm PO PRN PRN PRN Reason: Hypoglycemia Heparin Sodium (Porcine) (Heparin) 5,000 unit SQ Q12 [facility] Last Admin: 02/07/18 07:54 Dose: 5,000 unit Magnesium Sulfate (Magnesium Sulfate) 2 gm in 50 mls @ 50 mls/hr IV UD PRN PRN Reason: MG = or < 1.7 Norepinephrine Bitartrate 16 (mg/ Sodium Chloride) 250 mls @ 9.37 mls/hr IV Q24H [facility]; 10 MCG/MIN PRN Reason: Protocol Last Admin: 02/06/18 15:28 Dose: Not Given Sodium Chloride (Sodium Chloride 0.9%) 1,000 mls @ 50 mls/hr IV .Q20H [facility] Stop: 02/09/18 02:42 Last Admin: 02/06/18 15:32 Dose: 50 mls/hr Acetaminophen (Ofirmev) 1,000 mg in 100 mls @ 200 mls/hr IV Q6HP PRN PRN Reason: PAIN/FEVER > 101 Piperacillin Sod/Tazobactam (Sod 3.375 gm/ Dextrose) 50 mls @ 100 mls/hr IV Q6H [facility] Last Infusion: 02/07/18 06:15 Dose: Infused Vancomycin HCl 1,000 mg/ (Sodium Chloride) 250 mls @ 250 mls/hr IV Q12H [facility] Last Infusion: 02/06/18 22:05 Dose: Infused Insulin Glargine (Lantus) 40 unit SQ HS [facility] Insulin Human Lispro (Humalog) 0 unit SQ ACHS [facility] PRN Reason: Protocol Last Admin: 02/07/18 07:53 Dose: 8 unit Insulin Human Lispro (Humalog) 15 unit SQ TIDAC [facility] Last Admin: 02/07/18 07:53 Dose: 15 unit Iron Carb/Multivit/[place]/Folic Acid (Multivitamin W/Minerals) 1 tab PO DAILY [facility] Last Admin: 02/07/18 07:54 Dose: 1 tab Ondansetron HCl (Zofran) 4 mg IV Q4-6HP PRN PRN Reason: Nausea And Vomiting Potassium Chloride (Klor-Con) 40 meq PO DAILYP PRN PRN Reason: K+ < 3.5 Senna/Docusate Sodium (Senna Plus Tablet) 1 tab PO HS [facility] Last Admin: 02/06/18 21:36 Dose: 1 tab Sitagliptin Phosphate (Januvia) 100 mg PO DAILY [facility] Last Admin: 02/07/18 07:57 Dose: 100 mg Sodium Chloride (Saline Flush) 10 ml IV Q8 [facility] Last Admin: 02/07/18 05:40 Dose: 10 ml Vancomycin HCl (Vancomycin Per Pharmacy) 1 order IV UD [facility] Medical - PN: A/P - Time Spent With Patient Total time spent is greater than 50% in coordination of care (as documented) at patient's floor/unit and/or counseling patient: 15 - 24 minutes (1) Severe sepsis Status: Acute Assessment and plan: [id number] with history of poorly controlled diabetes and chronic right heel ulcer admitted with severe sepsis,hypotension and evidence of end organ dysfunction including acute renal failure and elevated bilirubin * Right foot/ankle cellulitis/lymphangitis/nonhealing ulcer. Empiric coverage for Streptococcus/gram negatives and anaerobes. Start Zosyn and vancomycin. Wound cultures. Foot imaging no evidence of osteomyelitis. send wound cultures * Severe sepsis with hypotension , end organ dysfunction. white count 25,000. continue management per guidelines. Venous lactate 4.9. Pancultures * Acute renal failure secondary to severe sepsis. creatinine 1.7 -> 1.2 * Elevated bilirubin secondary to sepsis end organ dysfunction. Down from 1.6- 0.6 * Lower extremity diabetic ulcer managed by Dr. Hayes * hyperlipidemia-continue statin * DM type II- poor outpatient control with A1c over 10. continue Lantus 48 units along with prandial insulin. blood Sugars down to 279 * history of hypertension-home meds on hold in light of sepsis * prophylaxis heparin Plan * transfer to medical floor * continue Broad antibiotic coverage * Diabetes education/Dietary consult * daily wound care per Dr. Hayes * Pre-existing medical condition management home meds Current Visit: Yes Medical - PN: Qual - VTE Deep Vein Thrombosis/Pulmonary Embolism Present on Admission: No
[2018-02-07] MEDS: VANCOMYCIN 1,000 MG in 0.9 % SODIUM CHLORIDE 250 ML IV SCH ×2 (09:15→20:26)
[2018-02-07] MEDS ORDERED: MAGNESIUM SULFATE 2 GM/50 ML BAG IV PRN (09:18)
[2018-02-07] MEDS ORDERED: DEXTROSE 50% 50 ML VIAL IV PRN (09:18)
[2018-02-07] MEDS ORDERED: ONDANSETRON 4 MG/2 ML VIAL IV PRN (09:18)
[2018-02-07] MEDS ORDERED: ACETAMINOPHEN 325 MG TABLET PO PRN (09:18)
[2018-02-07] MEDS ORDERED: POTASSIUM CHLORIDE 20 MEQ PACKET PO PRN (09:18)
[2018-02-07] MEDS ORDERED: VANCOMYCIN PER PHARMACY IV SCH (09:18)
[2018-02-07] MEDS ORDERED: DEXTROSE 31 GM ORAL.SUSP PO PRN (09:18)
[2018-02-07] MEDS ORDERED: ACETAMINOPHEN 1,000 MG/100 ML BOTTLE IV PRN (09:18)
--- NOTE | 2018-02-07 09:31 | General Surgery Progress Note ---
Subjective Patient reports: no new complaints Narrative: Note initiated : 02/07/18 at 9:28 am Service Date, if different from initiated Date: [] Patient: Prince Yan 63 y/o M admitted on 02/06/18 for Cough/SOB,Hyponatremia /Sepsis. Chief Complaint: []Day # 2 Hospitalization for SIRS, SEPSIS and uncontrolled diabetes. CSSSI and ?? URTI. Patient progressing well on coordinated care, IV antibiotics and local wound care along with correction of blood sugars and electrolytes Objective Temp Pulse Resp BP Pulse Ox 98.6 F 80 30 H 112/69 97 02/07/18 04:01 02/07/18 06:01 02/07/18 06:01 02/07/18 06:01 02/07/18 06:01 Afebrile, VSS No changes STACY, L/E Blister right anterior ankle and posterior heel has ruptured. Drained hemo serous fluid. Labs WBC down, Blood sugars and creatinine trending down. Blood cultures positive for GPC See wound care orders - Additional Data Intake & Output - Last 24 hours: Intake & Output 02/05/18 02/06/18 02/07/18 02/08/18 05:59 05:59 05:59 05:59 Intake Total 3190 / 3190 50 / 50 Output Total 900 / 900 Balance 2290 / 2290 50 / 50 Weight 162 lb 6.4 oz - Labs 02/07/18 03:56 02/07/18 03:56 Diabetes panel 02/06/18 02/07/18 Range/Units 08:54 03:56 Sodium 130 L 134 (133-145) mmol/L Potassium 4.3 4.2 (3.3-5.1) mmol/L Chloride 91 L 102 (96-108) mmol/L Carbon Dioxide 18 L 20 L (22-30) mmol/L BUN 59 H 51 H (8-23) mg/dl Creatinine 1.7 H 1.2 (0.7-1.2) mg/dl Glucose 316 H 279 H (70-105) mg/dL Calcium 9.1 8.3 L (8.6-10.4) mg/dl AST 20 17 (0-37) U/l ALT 26 23 (0-40) U/l Alkaline Phosphatase 91 97 (39-117) U/L Total Protein 8.0 6.7 (5.9-8.4) gm/dL Albumin 3.8 3.0 L (3.2-5.2) gm/dL Triglycerides 111 (<150) mg/dl Calcium panel 02/06/18 02/07/18 Range/Units 08:54 03:56 Calcium 9.1 8.3 L (8.6-10.4) mg/dl Phosphorus 2.6 L (2.7-4.5) mg/dL Albumin 3.8 3.0 L (3.2-5.2) gm/dL Pituitary panel 02/06/18 02/07/18 Range/Units 08:54 03:56 Sodium 130 L 134 (133-145) mmol/L Potassium 4.3 4.2 (3.3-5.1) mmol/L Chloride 91 L 102 (96-108) mmol/L Carbon Dioxide 18 L 20 L (22-30) mmol/L BUN 59 H 51 H (8-23) mg/dl Creatinine 1.7 H 1.2 (0.7-1.2) mg/dl Glucose 316 H 279 H (70-105) mg/dL Calcium 9.1 8.3 L (8.6-10.4) mg/dl Adrenal panel 02/06/18 02/07/18 Range/Units 08:54 03:56 Sodium 130 L 134 (133-145) mmol/L Potassium 4.3 4.2 (3.3-5.1) mmol/L Chloride 91 L 102 (96-108) mmol/L Carbon Dioxide 18 L 20 L (22-30) mmol/L BUN 59 H 51 H (8-23) mg/dl Creatinine 1.7 H 1.2 (0.7-1.2) mg/dl Glucose 316 H 279 H (70-105) mg/dL Calcium 9.1 8.3 L (8.6-10.4) mg/dl Total Bilirubin 1.6 H 0.6 (0.0-1.0) mg/dL AST 20 17 (0-37) U/l ALT 26 23 (0-40) U/l Alkaline Phosphatase 91 97 (39-117) U/L Total Protein 8.0 6.7 (5.9-8.4) gm/dL Albumin 3.8 3.0 L (3.2-5.2) gm/dL Assessment and Plan (1) Sepsis Status: Acute Current Visit: Yes (2) Severe sepsis Status: Acute Current Visit: Yes (3) Diabetic peripheral neuropathy Status: Chronic Current Visit: No (4) Skin ulcer, chronic Status: Chronic Current Visit: No - Narrative A/P Narrative: Assessment: Satisfactory progress. Patient seen with Martina BURGESS. Reviewed Dr. Francisco's progress note and concur with him. Plan: See wound care orders. O K to transfer out of ICU to Med Surg floor. Will continue to follow him over weekend. - Time Spent With Patient Total time spent is greater than 50% in coordination of care (as documented) at patient's floor/unit and/or counseling patient:
[2018-02-07] MEDS: SILVER SULFADIAZINE CREAM.TOP 25GM TOPICAL SCH (10:31)
[2018-02-07] MEDS: INSULIN GLARGINE, HUMAN 1 UNIT/0.01 ML SQ SCH (20:26)
[2018-02-07] MEDS: ATORVASTATIN 20 MG TABLET PO SCH (20:26)
[2018-02-07] MEDS: SENNOSIDES/DOCUSATE SODIUM 1 TAB TABLET PO SCH (20:26)
[2018-02-07] MEDS ORDERED: INSULIN GLARGINE, HUMAN 1 UNIT/0.01 ML SQ SCH (21:00)
[2018-02-08 05:53] LABS: Mean Cell Volume 87.3 fL (80.0-100.0); Mean Corpuscular HGB Conc 34.1 g/dL (31.0-36.0); Mean Corpuscular Hemoglobin 29.8 pg (26.0-34.0); Platelet Count 144 K/mcL (140-440); RBC 3.03 M/mcL (4.50-5.90); Red Cell Distribution Width 14.1 % (11.5-14.5)
[2018-02-08 06:04] LABS: ALT/SGPT 50 U/l (0-40); Albumin 2.5 gm/dL (3.2-5.2); Albumin/Globulin Ratio 0.7 (1.0-2.3); Alkaline Phosphatase 94 U/L (39-117); Bilirubin,Direct < 0.2 mg/dL (0.0-0.3); Blood Urea Nitrogen 34 mg/dl (8-23); Gamma Glutamyl Transpeptidase 20 U/L (8-61); Uric Acid 3.2 mg/dL (2.5-8.0)
[2018-02-08] MEDS: 0.9 % SODIUM CHLORIDE 10 ML SYRINGE IV SCH ×3 (06:10→20:46)
[2018-02-08] MEDS: PIPERACILLIN SODIUM/TAZOBACTAM 3.375 GM in DEXTROSE 5% IN WATER 50 ML IV SCH ×3 (06:10→17:37)
[2018-02-08] MEDS: INSULIN LISPRO 1 UNIT/0.01 ML UNIT SQ SCH ×7 (07:45→20:45)
[2018-02-08 09:46] LABS: Band Neutrophils % 1 % (0-10); Lymphocytes % 10 % (15-49); Monocytes % (Manual) 4 % (1-12); Platelet Estimate NORMAL (NORMAL); RBC Morphology NORMAL (NORMAL); Segmented Neutrophils % 85 % (38-78)
[2018-02-08] MEDS: VANCOMYCIN 1,000 MG in 0.9 % SODIUM CHLORIDE 250 ML IV SCH (09:51)
[2018-02-08] MEDS: MULTIVIT,THER IRON,CA,FA & MIN 1 TABLET PO SCH (11:03)
[2018-02-08] MEDS: ASPIRIN 81 MG TAB.CHEW PO SCH (11:03)
[2018-02-08] MEDS: DOCUSATE SODIUM 100 MG CAPSULE PO SCH ×2 (11:03→20:44)
[2018-02-08] MEDS: HEPARIN 5,000 UNIT/ML VIAL SQ SCH ×2 (11:03→20:44)
[2018-02-08] MEDS: sitaGLIPtin 100 MG TABLET PO SCH (11:03)
[2018-02-08] MEDS: SILVER SULFADIAZINE CREAM.TOP 25GM TOPICAL SCH (11:04)
--- NOTE | 2018-02-08 12:41 | General Surgery Progress Note ---
Subjective Narrative: Note initiated : 02/08/18 at 12:35 pm Service Date, if different from initiated Date: [] Patient: Prince Yan 63 y/o M admitted on 02/06/18 for Cough/SOB,Hyponatremia /Sepsis. Chief Complaint: []Hospitalization day # [address] Glaser, Hospitalist Physician and nursing staff. Wound examined. Objective Temp Pulse Resp BP Pulse Ox 97.6 F 98 H 16 126/67 96 02/08/18 11:15 02/08/18 03:30 02/08/18 11:15 02/08/18 11:15 02/08/18 11:15 Afebrile. VSS. No changes STACY. L/E Resolving cellulitis, dermatitis with demarcating / exfoliating devitalized skin. Labs. CBC, Blood sugars and Creatinine trending down. Blood and Wound C/S GPC Strep Agalactiae - Additional Data Intake & Output - Last 24 hours: Intake & Output 02/06/18 02/07/18 02/08/18 02/09/18 05:59 05:59 05:59 05:59 Intake Total 3190 / 3190 2300 / 2300 Output Total 900 / 900 1725 / 1725 Balance 2290 / 2290 575 / 575 Weight 162 lb 6.4 oz 165 lb 8 oz - Labs 02/08/18 04:30 02/08/18 04:30 Diabetes panel 02/08/18 Range/Units 04:30 Sodium 136 (133-145) mmol/L Potassium 4.0 (3.3-5.1) mmol/L Chloride 104 (96-108) mmol/L Carbon Dioxide 20 L (22-30) mmol/L BUN 34 H (8-23) mg/dl Creatinine 1.0 (0.7-1.2) mg/dl Glucose 141 H (70-105) mg/dL Calcium 8.0 L (8.6-10.4) mg/dl AST 49 H (0-37) U/l ALT 50 H (0-40) U/l Alkaline Phosphatase 94 (39-117) U/L Total Protein 6.1 (5.9-8.4) gm/dL Albumin 2.5 L (3.2-5.2) gm/dL Triglycerides 153 H (<150) mg/dl Calcium panel 02/08/18 Range/Units 04:30 Calcium 8.0 L (8.6-10.4) mg/dl Phosphorus 1.6 L (2.7-4.5) mg/dL Albumin 2.5 L (3.2-5.2) gm/dL Pituitary panel 02/08/18 Range/Units 04:30 Sodium 136 (133-145) mmol/L Potassium 4.0 (3.3-5.1) mmol/L Chloride 104 (96-108) mmol/L Carbon Dioxide 20 L (22-30) mmol/L BUN 34 H (8-23) mg/dl Creatinine 1.0 (0.7-1.2) mg/dl Glucose 141 H (70-105) mg/dL Calcium 8.0 L (8.6-10.4) mg/dl Adrenal panel 02/08/18 Range/Units 04:30 Sodium 136 (133-145) mmol/L Potassium 4.0 (3.3-5.1) mmol/L Chloride 104 (96-108) mmol/L Carbon Dioxide 20 L (22-30) mmol/L BUN 34 H (8-23) mg/dl Creatinine 1.0 (0.7-1.2) mg/dl Glucose 141 H (70-105) mg/dL Calcium 8.0 L (8.6-10.4) mg/dl Total Bilirubin 0.3 (0.0-1.0) mg/dL AST 49 H (0-37) U/l ALT 50 H (0-40) U/l Alkaline Phosphatase 94 (39-117) U/L Total Protein 6.1 (5.9-8.4) gm/dL Albumin 2.5 L (3.2-5.2) gm/dL Assessment and Plan (1) Sepsis Status: Acute Current Visit: Yes (2) Severe sepsis Status: Acute Current Visit: Yes (3) Diabetic peripheral neuropathy Status: Chronic Current Visit: No (4) Skin ulcer, chronic Status: Chronic Current Visit: No - Time Spent With Patient Total time spent is greater than 50% in coordination of care (as documented) at patient's floor/unit and/or counseling patient: Assessment: Progressing well and responding to treatment. Plan: Continue treatment. Will check non invasive vascular studies on Saturday02/10/2018 Anticipate D/C on PO antibiotics and wound care clinic follow up for continuity of care. 15 - 24 minutes
--- NOTE | 2018-02-08 14:49 | Internal Med Progress Note ---
Medical - PN: Subj Patient information: Note initiated : 02/08/18 at 2:47 pm Service Date, if different from initiated Date: [] Patient: Prince Yan a 63 y/o M admitted on 02/06/18 for Cough/SOB,Hyponatremia /Sepsis. Chief Complaint: f/u sepsis/skin infection of ankle Interval history: Mr. Yan is a 63 year old M with a history of poorly controlled diabetes, peripheral vascular disease, and nonhealing foot ulcers due to neuropathy who comes in with weakness shortness of breath and worsening right ankle redness discharge and swelling along with pain and shaking chills. Patient is a wound care patient and has been followed up by Dr. Hayes. Patient has noted worsening redness along the ankle/dorsum of the right foot and heel with associated discharge which was periodically evaluated at wound care clinic. patient has been using a cast and following up weekly. patient thinks that the ulcer has progressed due to friction from the cast. Symptoms have progressed over the last 2 weeks. He has associated fatigue, malaise and loss of appetite, lethargy and diminished functionality. He later developed shortness of breath. He now presents to the ER. Initial workup was significant for white count 25,000 along with systolics in the 90s and elevated lactic acid 4.9. foot x-ray reveals plantar soft tissue swelling. Recent A1c during office visit was 10.4 . His blood sugar today is 573. patient received first dose of antibiotics after cultures were drawn along with crystalloids. Hospitalist service was consulted in light of severe sepsis with hypotension and elevated lactate. At the time of evaluation patient is alert and oriented. He was able to answer most questions. Denies recent falls trauma except for friction from the cast. He does not feel pain secondary neuropathy, however he noticed worsening redness and swelling. He denies fever or arthralgia myalgia headache photophobia cough or shortness of breath. Denies diarrhea dysuria. He endorses to history as above. He is currently accompanied with his sister/ niece and ex-. significant to presenting history his diabetes is poorly controlled. He has attempted outpatient diabetic education with limited success. he is currently on basal bolus regime however his A1c remains elevated over 10. February 07-patient clinically improving. White count down from 25->14. Lactic acid normalized. creatinine down from 1.7-1.2. On antibiotic coverage. case discussed with Dr. Hayes wound care physician. Patient would not require debridement at this time. Also patient has shown remarkable improvement in the last 24 hours with resolution of sepsis. He'll be downgraded to medical floor from ICU. Anticipate 10-14 days antibiotics along with continued wound care. February 08-patient continues to improve. One set of blood cultures positive for gram-positive cocci in chains, molecular identification consistent with Streptococcus agalactiae. Wound culture on the ankle with Streptococcus agalactiae, likely source of bacteremia. Wound continues to improve, seen with Dr. Hayes. Glucose under pretty good control. - Constitutional Vitals: Vital Signs Temp Pulse Resp BP Pulse Ox 97.6 F 98 H 16 126/67 96 02/08/18 11:15 02/08/18 03:30 02/08/18 11:15 02/08/18 11:15 02/08/18 11:15 Period Temp Pulse Resp BP Sys/Ndiaye Pulse Ox Last 24 Hr 97.6 F-98.8 F 93-98 16-20 108-126/63-71 95-98 Intake and Output 02/08/18 02/08/18 02/08/18 05:59 13:59 21:59 Intake Total 450 / 450 50 / 50 Output Total 850 / 850 Balance -400 / -400 50 / 50 Intake & Output: Intake & Output 02/08/18 02/08/18 02/08/18 05:59 13:59 21:59 Intake Total 450 / 450 50 / 50 Output Total 850 / 850 Balance -400 / -400 50 / 50 Intake: IV 50 / 50 50 / 50 Zosyn 3.375 gm In Dextrose 5% 50 / 50 50 / 50 in Water 50 ml @ 100 mls/hr IV Q6H [facility] Rx#:[id number] Oral 400 / 400 Output: Void Amount 850 / 850 Exam: General: No acute distress Chest: Rales at bases, clear after deep respirations Cardiovascular: Regular Abdomen: Soft, nontender Extremities: Right lower extremity wound at the ankle with some surrounding erythema, most blister material is drained. Neuro: Alert, oriented 3 Medical - PN: Obj Da - Labs CBC & Chem 7: 02/08/18 04:30 02/08/18 04:30 Labs: Abnormal Lab Results 02/08/18 02/08/18 02/07/18 04:30 04:30 03:56 WBC RBC 3.03 L Hgb 9.0 L Hct 26.5 L Seg Neutrophils % 85 H Lymphocytes % 10 L ESR VBG Lactic Acid Sodium Chloride Carbon Dioxide 20 L 20 L Anion Gap BUN 34 H 51 H Creatinine Glucose 141 H 279 H Calcium 8.0 L 8.3 L Phosphorus 1.6 L 2.6 L Magnesium 2.7 H Total Bilirubin AST 49 H ALT 50 H Lactate Dehydrogenase 363 H C-Reactive Protein Albumin 2.5 L 3.0 L Globulin Albumin/Globulin Ratio 0.7 L 0.8 L Triglycerides 153 H Urine Glucose (UA) Urine Ketones Hyaline Casts 02/07/18 02/06/18 02/06/18 03:56 14:09 08:55 WBC 14.6 H RBC 3.22 L Hgb 9.6 L Hct 28.1 L Seg Neutrophils % 89 H Lymphocytes % 7 L ESR VBG Lactic Acid Sodium Chloride Carbon Dioxide Anion Gap BUN Creatinine Glucose Calcium Phosphorus Magnesium Total Bilirubin AST ALT Lactate Dehydrogenase C-Reactive Protein 37.9 H Albumin Globulin Albumin/Globulin Ratio Triglycerides Urine Glucose (UA) >=500 A Urine Ketones 5/tr A Hyaline Casts 10 H 02/06/18 02/06/18 02/06/18 08:55 08:55 08:54 WBC 24.7 H RBC 3.94 L Hgb 11.5 L Hct 34.4 L Seg Neutrophils % 84 H Lymphocytes % 4 L ESR 115 H VBG Lactic Acid 4.9 H* Sodium Chloride Carbon Dioxide Anion Gap BUN Creatinine Glucose Calcium Phosphorus Magnesium Total Bilirubin AST ALT Lactate Dehydrogenase C-Reactive Protein Albumin Globulin Albumin/Globulin Ratio Triglycerides Urine Glucose (UA) Urine Ketones Hyaline Casts 02/06/18 08:54 WBC RBC Hgb Hct Seg Neutrophils % Lymphocytes % ESR VBG Lactic Acid Sodium 130 L Chloride 91 L Carbon Dioxide 18 L Anion Gap 21.0 H BUN 59 H Creatinine 1.7 H Glucose 316 H Calcium Phosphorus Magnesium Total Bilirubin 1.6 H AST ALT Lactate Dehydrogenase C-Reactive Protein Albumin Globulin 4.2 H Albumin/Globulin Ratio 0.9 L Triglycerides Urine Glucose (UA) Urine Ketones Hyaline Casts Microbiology 02/06/18 08:45 Blood Culture - Preliminary Blood 02/06/18 16:20 Gram Stain - Final Foot - Right Wound Culture - Preliminary Strep agalactiae - (group b) Meds: Medications Acetaminophen (Tylenol) 650 mg PO Q4-6HP PRN PRN Reason: PAIN/FEVER > 101 Aspirin (Aspirin) 81 mg PO DAILY [facility] Last Admin: 02/08/18 11:03 Dose: 81 mg Atorvastatin Calcium (Lipitor) 20 mg PO HS [facility] Last Admin: 02/07/18 20:26 Dose: 20 mg Dextrose (Dextrose 50%) 0 ml IV UD PRN PRN Reason: Hypoglycemia Diagnostic Test (Pha) (Accu-Chek) 1 each FS [facility] Last Admin: 02/08/18 11:09 Dose: 1 each Docusate Sodium (Colace) 100 mg PO BID [facility] Last Admin: 02/08/18 11:03 Dose: 100 mg Glucose (Insta-Glucose) 15 gm PO PRN PRN PRN Reason: Hypoglycemia Heparin Sodium (Porcine) (Heparin) 5,000 unit SQ Q12 [facility] Last Admin: 02/08/18 11:03 Dose: 5,000 unit Magnesium Sulfate (Magnesium Sulfate) 2 gm in 50 mls @ 50 mls/hr IV UD PRN PRN Reason: MG = or < 1.7 Acetaminophen (Ofirmev) 1,000 mg in 100 mls @ 200 mls/hr IV Q6HP PRN PRN Reason: PAIN/FEVER > 101 Piperacillin Sod/Tazobactam (Sod 3.375 gm/ Dextrose) 50 mls @ 100 mls/hr IV Q6H [facility] Last Admin: 02/08/18 12:46 Dose: 100 mls/hr Insulin Glargine (Lantus) 48 unit SQ [facility] Last Admin: 02/07/18 20:26 Dose: 48 unit Insulin Human Lispro (Humalog) 0 unit SQ [facility] PRN Reason: Protocol Last Admin: 02/08/18 11:09 Dose: Not Given Insulin Human Lispro (Humalog) 15 unit SQ TIDAC [facility] Last Admin: 02/08/18 11:09 Dose: Not Given Iron Carb/Multivit/[place]/Folic Acid (Multivitamin W/Minerals) 1 tab PO DAILY [facility] Last Admin: 02/08/18 11:03 Dose: 1 tab Ondansetron HCl (Zofran) 4 mg IV Q4-6HP PRN PRN Reason: Nausea And Vomiting Potassium Chloride (Klor-Con) 40 meq PO DAILYP PRN PRN Reason: K+ < 3.5 Senna/Docusate Sodium (Senna Plus Tablet) 1 tab PO HS [facility] Last Admin: 02/07/18 20:26 Dose: 1 tab Silver Sulfadiazine (Silvadene) 1 dose TOPICAL DAILY [facility] Last Admin: 02/08/18 11:04 Dose: 1 dose Sitagliptin Phosphate (Januvia) 100 mg PO DAILY [facility] Last Admin: 02/08/18 11:03 Dose: 100 mg Sodium Chloride (Saline Flush) 10 ml IV Q8 [facility] Last Admin: 02/08/18 06:10 Dose: 10 ml Medical - PN: A/P - Time Spent With Patient Total time spent is greater than 50% in coordination of care (as documented) at patient's floor/unit and/or counseling patient: 25 - 35 minutes - Narrative A/P Narrative: 63-year-old male with diabetes, admitted with sepsis from right ankle wounds with associated cellulitis, also associated streptococcal bacteremia. Sepsis. Improving. White counts normalized today. Renal function is normalized. Lactate a previously determined normal. Plan: Continue antibiotics for cellulitis and bacteremia. Cellulitis/ankle wound. Streptococcus agalactiae on wound culture. Also gram- positive cocci in chains in blood culture, preliminarily consistent with same strep. Wounds are improving. Plan: Continue with local wound care, continue with Pipracil and, we'll stop vancomycin without evidence of MRSA. Type 2 diabetes mellitus. Control is improving. Plan: Continue current regimen. Acute renal failure secondary to severe sepsis. Resolving with treatment of sepsis. Cr 1.7 --> 1.2 --> 1.0 Plan: Continue to monitor creatinine Elevated bilirubin secondary to sepsis end organ dysfunction. Normalizing. Plan: Follow Lower extremity diabetic ulcer managed by Dr. Hayes Hyperlipidemia-continue statin Hypertension-home meds held due to sepsis. Plan: Resume when needed. Medical - PN: Qual - VTE Deep Vein Thrombosis/Pulmonary Embolism Present on Admission: No
[2018-02-08] MEDS: INSULIN GLARGINE, HUMAN 1 UNIT/0.01 ML SQ SCH (20:45)
[2018-02-08] MEDS: ATORVASTATIN 20 MG TABLET PO SCH (20:46)
[2018-02-08] MEDS: SENNOSIDES/DOCUSATE SODIUM 1 TAB TABLET PO SCH (20:46)
[2018-02-08] MEDS: NEUTRA PHOS 1 PACKET PO SCH (20:46)
[2018-02-09] MEDS: PIPERACILLIN SODIUM/TAZOBACTAM 3.375 GM in DEXTROSE 5% IN WATER 50 ML IV SCH ×3 (00:18→13:36)
[2018-02-09] MEDS: 0.9 % SODIUM CHLORIDE 10 ML SYRINGE IV SCH ×3 (05:36→21:00)
[2018-02-09 06:11] LABS: Mean Cell Volume 87.7 fL (80.0-100.0); Mean Corpuscular HGB Conc 34.1 g/dL (31.0-36.0); Mean Corpuscular Hemoglobin 29.9 pg (26.0-34.0); Platelet Count 138 K/mcL (140-440); RBC 3.08 M/mcL (4.50-5.90); Red Cell Distribution Width 14.3 % (11.5-14.5)
[2018-02-09 06:27] LABS: ALT/SGPT 64 U/l (0-40); Albumin 2.4 gm/dL (3.2-5.2); Albumin/Globulin Ratio 0.6 (1.0-2.3); Alkaline Phosphatase 90 U/L (39-117); Bilirubin,Direct < 0.2 mg/dL (0.0-0.3); Blood Urea Nitrogen 22 mg/dl (8-23); Gamma Glutamyl Transpeptidase 24 U/L (8-61); Uric Acid 2.5 mg/dL (2.5-8.0)
[2018-02-09] MEDS: INSULIN LISPRO 1 UNIT/0.01 ML UNIT SQ SCH ×7 (07:55→21:07)
[2018-02-09 08:26] LABS: Band Neutrophils % 2 % (0-10); Eosinophils % (Manual) 2 % (0-7); Lymphocytes % 13 % (15-49); Monocytes % (Manual) 8 % (1-12); Platelet Estimate DECREASED (NORMAL); RBC Morphology NORMAL (NORMAL); Segmented Neutrophils % 75 % (38-78)
[2018-02-09] MEDS: NEUTRA PHOS 1 PACKET PO SCH ×2 (08:47→20:59)
[2018-02-09] MEDS: MULTIVIT,THER IRON,CA,FA & MIN 1 TABLET PO SCH (08:48)
[2018-02-09] MEDS: ASPIRIN 81 MG TAB.CHEW PO SCH (08:48)
[2018-02-09] MEDS: sitaGLIPtin 100 MG TABLET PO SCH (08:48)
[2018-02-09] MEDS: HEPARIN 5,000 UNIT/ML VIAL SQ SCH ×2 (08:48→20:58)
[2018-02-09] MEDS: DOCUSATE SODIUM 100 MG CAPSULE PO SCH ×2 (08:48→20:59)
[2018-02-09] MEDS: SILVER SULFADIAZINE CREAM.TOP 25GM TOPICAL SCH (11:37)
--- NOTE | 2018-02-09 17:08 | Internal Med Progress Note ---
Medical - PN: Subj Patient information: Note initiated : 02/09/18 at 5:06 pm Service Date, if different from initiated Date: [] Patient: Prince Yan a 63 y/o M admitted on 02/06/18 for Cough/SOB,Hyponatremia /Sepsis. Chief Complaint: f/u cellulitis, sepsis, bacteremia Interval history: Mr. Yan is a 63 year old M with a history of poorly controlled diabetes, peripheral vascular disease, and nonhealing foot ulcers due to neuropathy who comes in with weakness shortness of breath and worsening right ankle redness discharge and swelling along with pain and shaking chills. Patient is a wound care patient and has been followed up by Dr. Hayes. Patient has noted worsening redness along the ankle/dorsum of the right foot and heel with associated discharge which was periodically evaluated at wound care clinic. patient has been using a cast and following up weekly. patient thinks that the ulcer has progressed due to friction from the cast. Symptoms have progressed over the last 2 weeks. He has associated fatigue, malaise and loss of appetite, lethargy and diminished functionality. He later developed shortness of breath. He now presents to the ER. Initial workup was significant for white count 25,000 along with systolics in the 90s and elevated lactic acid 4.9. foot x-ray reveals plantar soft tissue swelling. Recent A1c during office visit was 10.4 . His blood sugar today is 573. patient received first dose of antibiotics after cultures were drawn along with crystalloids. Hospitalist service was consulted in light of severe sepsis with hypotension and elevated lactate. At the time of evaluation patient is alert and oriented. He was able to answer most questions. Denies recent falls trauma except for friction from the cast. He does not feel pain secondary neuropathy, however he noticed worsening redness and swelling. He denies fever or arthralgia myalgia headache photophobia cough or shortness of breath. Denies diarrhea dysuria. He endorses to history as above. He is currently accompanied with his sister/ niece and ex-. significant to presenting history his diabetes is poorly controlled. He has attempted outpatient diabetic education with limited success. he is currently on basal bolus regime however his A1c remains elevated over 10. February 07-patient clinically improving. White count down from 25->14. Lactic acid normalized. creatinine down from 1.7-1.2. On antibiotic coverage. case discussed with Dr. Hayes wound care physician. Patient would not require debridement at this time. Also patient has shown remarkable improvement in the last 24 hours with resolution of sepsis. He'll be downgraded to medical floor from ICU. Anticipate 10-14 days antibiotics along with continued wound care. February 08-patient continues to improve. One set of blood cultures positive for gram-positive cocci in chains, molecular identification consistent with Streptococcus agalactiae. Wound culture on the ankle with Streptococcus agalactiae, likely source of bacteremia. Wound continues to improve, seen with Dr. Hayes. Glucose under pretty good control. February 09-seen and examined on rounds. No new complaints. Tolerating antibiotics. Blood cultures finalized as S. agalactiae, same as in ankle wound/ cellulitis. Will need 10-14 days antibiotic therapy for blood stream infection. Only 1 of 2 sets were positive. - Constitutional Vitals: Vital Signs Temp Pulse Resp BP Pulse Ox 98.7 F 92 H 18 114/78 97 02/09/18 15:07 02/09/18 03:58 02/09/18 15:07 02/09/18 15:07 02/09/18 15:07 Period Temp Pulse Resp BP Sys/Ndiaye Pulse Ox Last 24 Hr 97.4 F-99.0 F 80-94 14-22 113-135/61-78 95-98 Intake and Output 02/09/18 02/09/18 02/09/18 05:59 13:59 21:59 Intake Total 450 / 450 50 / 50 170 / 170 Output Total 650 / 650 Balance -200 / -200 50 / 50 170 / 170 Intake & Output: Intake & Output 02/09/18 02/09/18 02/09/18 05:59 13:59 21:59 Intake Total 450 / 450 50 / 50 170 / 170 Output Total 650 / 650 Balance -200 / -200 50 / 50 170 / 170 Intake: IV 50 / 50 50 / 50 50 / 50 Zosyn 3.375 gm In Dextrose 5% 50 / 50 50 / 50 50 / 50 in Water 50 ml @ 100 mls/hr IV Q6H [facility] Rx#:[id number] Oral 400 / 400 120 / 120 Output: Void Amount 650 / 650 Other: Meal Lunch Percent of Meal Consumed 25% Exam: General: No acute distress on chest: Clear Cardiac: Regular, no murmur Abdomen: Soft, active bowel sounds, nontender Extremities: Ankle wound dressed, dressings intact and dry Neuro: Alert, oriented 3 Medical - PN: Obj Da - Labs CBC & Chem 7: 02/09/18 04:53 02/09/18 04:53 Labs: Abnormal Lab Results 02/09/18 02/09/18 02/08/18 04:53 04:53 04:30 WBC RBC 3.08 L Hgb 9.2 L Hct 27.0 L Plt Count 138 L Seg Neutrophils % Lymphocytes % 13 L Platelet Estimate Decreased A Carbon Dioxide 21 L 20 L BUN 34 H Glucose 128 H 141 H Calcium 7.9 L 8.0 L Phosphorus 1.6 L Magnesium AST 52 H 49 H ALT 64 H 50 H Lactate Dehydrogenase Albumin 2.4 L 2.5 L Albumin/Globulin Ratio 0.6 L 0.7 L Triglycerides 153 H 02/08/18 02/07/18 02/07/18 04:30 03:56 03:56 WBC 14.6 H RBC 3.03 L 3.22 L Hgb 9.0 L 9.6 L Hct 26.5 L 28.1 L Plt Count Seg Neutrophils % 85 H 89 H Lymphocytes % 10 L 7 L Platelet Estimate Carbon Dioxide 20 L BUN 51 H Glucose 279 H Calcium 8.3 L Phosphorus 2.6 L Magnesium 2.7 H AST ALT Lactate Dehydrogenase 363 H Albumin 3.0 L Albumin/Globulin Ratio 0.8 L Triglycerides Microbiology 02/06/18 16:20 Gram Stain - Final Foot - Right Wound Culture - Final Strep agalactiae - (group b) 02/06/18 08:45 Blood Culture - Preliminary Blood Meds: Medications Acetaminophen (Tylenol) 650 mg PO Q4-6HP PRN PRN Reason: PAIN/FEVER > 101 Aspirin (Aspirin) 81 mg PO DAILY [facility] Last Admin: 02/09/18 08:48 Dose: 81 mg Atorvastatin Calcium (Lipitor) 20 mg PO HS [facility] Last Admin: 02/08/18 20:46 Dose: 20 mg Dextrose (Dextrose 50%) 0 ml IV UD PRN PRN Reason: Hypoglycemia Diagnostic Test (Pha) (Accu-Chek) 1 each FS [facility] Last Admin: 02/09/18 16:01 Dose: 1 each Docusate Sodium (Colace) 100 mg PO BID [facility] Last Admin: 02/09/18 08:48 Dose: 100 mg Glucose (Insta-Glucose) 15 gm PO PRN PRN PRN Reason: Hypoglycemia Heparin Sodium (Porcine) (Heparin) 5,000 unit SQ Q12 [facility] Last Admin: 02/09/18 08:48 Dose: 5,000 unit Magnesium Sulfate (Magnesium Sulfate) 2 gm in 50 mls @ 50 mls/hr IV UD PRN PRN Reason: MG = or < 1.7 Acetaminophen (Ofirmev) 1,000 mg in 100 mls @ 200 mls/hr IV Q6HP PRN PRN Reason: PAIN/FEVER > 101 Last Admin: 02/08/18 19:06 Dose: 200 mls/hr Piperacillin Sod/Tazobactam (Sod 3.375 gm/ Dextrose) 50 mls @ 100 mls/hr IV Q6H [facility] Last Infusion: 02/09/18 14:06 Dose: Infused Insulin Glargine (Lantus) 48 unit SQ HS [facility] Last Admin: 02/08/18 20:45 Dose: 48 unit Insulin Human Lispro (Humalog) 0 unit SQ [facility] PRN Reason: Protocol Last Admin: 02/09/18 11:37 Dose: Not Given Insulin Human Lispro (Humalog) 15 unit SQ TIDAC [facility] Last Admin: 02/09/18 11:37 Dose: Not Given Iron Carb/Multivit/[place]/Folic Acid (Multivitamin W/Minerals) 1 tab PO DAILY [facility] Last Admin: 02/09/18 08:48 Dose: 1 tab Ondansetron HCl (Zofran) 4 mg IV Q4-6HP PRN PRN Reason: Nausea And Vomiting Potassium Chloride (Klor-Con) 40 meq PO DAILYP PRN PRN Reason: K+ < 3.5 Potassium/Phosphorus/Sodium (Neutra Phos) 2 packet PO BID [facility] Last Admin: 02/09/18 08:47 Dose: 2 packet Senna/Docusate Sodium (Senna Plus Tablet) 1 tab PO [facility] Last Admin: 02/08/18 20:46 Dose: 1 tab Silver Sulfadiazine (Silvadene) 1 dose TOPICAL DAILY [facility] Last Admin: 02/09/18 11:37 Dose: 1 dose Sitagliptin Phosphate (Januvia) 100 mg PO DAILY [facility] Last Admin: 02/09/18 08:48 Dose: 100 mg Sodium Chloride (Saline Flush) 10 ml IV Q8 [facility] Last Admin: 02/09/18 15:37 Dose: 10 ml Medical - PN: A/P - Narrative A/P Narrative: 63-year-old male with diabetes, admitted with sepsis from right ankle wounds with associated cellulitis, also associated streptococcal bacteremia. Sepsis. Resolved. White count has normalized. Renal function is normalized. Lactate a previously determined normal. Plan: Continue antibiotics for cellulitis and bacteremia. Cellulitis/ankle wound. Streptococcus agalactiae on wound culture. Also in 1 of 2 sets of blood cultures. Wounds are improving. Plan: Continue with local wound care, narrow antibiotics to ceftriaxone. Type 2 diabetes mellitus. Control is improving. Plan: Continue current regimen. Acute renal failure secondary to severe sepsis. Resolving with treatment of sepsis. Cr 1.7 --> 1.2 --> 1.0-->0.9 Plan: Continue to monitor creatinine Elevated bilirubin secondary to sepsis end organ dysfunction. Normalizing. Plan: Follow Lower extremity diabetic ulcer managed by Dr. Hayes Hyperlipidemia-continue statin Hypertension-home meds held due to sepsis. BP still controlled, but will add back lisinopril, as will need for renal protection. Plan: Resume lisinopril. Medical - PN: Qual - VTE Deep Vein Thrombosis/Pulmonary Embolism Present on Admission: No
[2018-02-09] MEDS: cefTRIAXone 1 GM VIAL IV SCH (20:58)
[2018-02-09] MEDS: SENNOSIDES/DOCUSATE SODIUM 1 TAB TABLET PO SCH (20:59)
[2018-02-09] MEDS: ATORVASTATIN 20 MG TABLET PO SCH (20:59)
[2018-02-09] MEDS: INSULIN GLARGINE, HUMAN 1 UNIT/0.01 ML SQ SCH (21:07)
[2018-02-10 05:51] LABS: Mean Cell Volume 86.9 fL (80.0-100.0); Mean Corpuscular HGB Conc 33.9 g/dL (31.0-36.0); Mean Corpuscular Hemoglobin 29.5 pg (26.0-34.0); Platelet Count 148 K/mcL (140-440); RBC 3.04 M/mcL (4.50-5.90); Red Cell Distribution Width 14.5 % (11.5-14.5)
[2018-02-10] MEDS: 0.9 % SODIUM CHLORIDE 10 ML SYRINGE IV SCH (05:55)
[2018-02-10 06:13] LABS: ALT/SGPT 56 U/l (0-40); Albumin 2.5 gm/dL (3.2-5.2); Albumin/Globulin Ratio 0.7 (1.0-2.3); Alkaline Phosphatase 71 U/L (39-117); Bilirubin,Direct < 0.2 mg/dL (0.0-0.3); Blood Urea Nitrogen 19 mg/dl (8-23); Gamma Glutamyl Transpeptidase 25 U/L (8-61); Uric Acid 2.3 mg/dL (2.5-8.0)
[2018-02-10 07:37] LABS: Anisocytosis FEW (NONE SEEN); Lymphocytes % 11 % (15-49); Monocytes % (Manual) 5 % (1-12); Platelet Estimate NORMAL (NORMAL); RBC Morphology ABNORM (NORMAL); Segmented Neutrophils % 84 % (38-78)
[2018-02-10] MEDS: INSULIN LISPRO 1 UNIT/0.01 ML UNIT SQ SCH ×4 (07:40→11:54)
[2018-02-10] MEDS ORDERED: LISINOPRIL/HCTZ 20/12.5MG TABLET PO SCH (09:00)
[2018-02-10] MEDS ORDERED: HYDROCHLOROTHIAZIDE 12.5 MG CAPSULE PO SCH (09:00)
[2018-02-10] MEDS ORDERED: LISINOPRIL 20 MG TABLET PO SCH (09:00)
[2018-02-10] MEDS: NEUTRA PHOS 1 PACKET PO SCH (10:00)
--- NOTE | 2018-02-10 10:27 | General Surgery Progress Note ---
Subjective Narrative: Note initiated : 02/10/18 at 10:20 am Service Date, if different from initiated Date: [] Patient: Prince Yan 63 y/o M admitted on 02/06/18 for Cough/SOB,Hyponatremia /Sepsis. Chief Complaint: []I saw the patient along with ADITYA Corral, IP Wound Care Nurse. Patient DENIES any subjective complaints. He had an uneventful night and is comfortable with daily dressing changes. Objective Temp Pulse Resp BP Pulse Ox 98.0 F 89 18 124/75 97 02/10/18 06:25 02/10/18 04:00 02/10/18 06:25 02/10/18 06:25 02/10/18 06:25 Afebrile. VSS. No changes in STACY. Lab results. Resolved leucocytosis and normalizing sugars and creatinine. Hct 26. Patient does NOT have any symptoms. L/E. Well demarcated skin and sub cutaneous tissue on posterior aspect of RIGHT ankle and along anterior ankle and lower third of leg. He still has dry black adherent eschar over the anterior aspect of ankle and on posterior heel. I cleaned his wounds and selectively debrided the devitalized skin off these wounds. - Additional Data Intake & Output - Last 24 hours: Intake & Output 02/08/18 02/09/18 02/10/18 02/11/18 05:59 05:59 05:59 05:59 Intake Total 2300 / 2300 1200 / 1200 738 / 738 Output Total 1725 / 1725 1550 / 1550 1350 / 1350 Balance 575 / 575 -350 / -350 -612 / -612 Weight 165 lb 8 oz 166 lb 8 oz 167 lb 8 oz - Labs 02/10/18 04:35 02/10/18 04:35 Diabetes panel 02/10/18 Range/Units 04:35 Sodium 138 (133-145) mmol/L Potassium 4.0 (3.3-5.1) mmol/L Chloride 104 (96-108) mmol/L Carbon Dioxide 22 (22-30) mmol/L BUN 19 (8-23) mg/dl Creatinine 0.8 (0.7-1.2) mg/dl Glucose 101 (70-105) mg/dL Calcium 8.2 L (8.6-10.4) mg/dl AST 33 (0-37) U/l ALT 56 H (0-40) U/l Alkaline Phosphatase 71 (39-117) U/L Total Protein 6.0 (5.9-8.4) gm/dL Albumin 2.5 L (3.2-5.2) gm/dL Triglycerides 121 (<150) mg/dl Calcium panel 02/10/18 Range/Units 04:35 Calcium 8.2 L (8.6-10.4) mg/dl Phosphorus 3.1 (2.7-4.5) mg/dL Albumin 2.5 L (3.2-5.2) gm/dL Pituitary panel 02/10/18 Range/Units 04:35 Sodium 138 (133-145) mmol/L Potassium 4.0 (3.3-5.1) mmol/L Chloride 104 (96-108) mmol/L Carbon Dioxide 22 (22-30) mmol/L BUN 19 (8-23) mg/dl Creatinine 0.8 (0.7-1.2) mg/dl Glucose 101 (70-105) mg/dL Calcium 8.2 L (8.6-10.4) mg/dl Adrenal panel 02/10/18 Range/Units 04:35 Sodium 138 (133-145) mmol/L Potassium 4.0 (3.3-5.1) mmol/L Chloride 104 (96-108) mmol/L Carbon Dioxide 22 (22-30) mmol/L BUN 19 (8-23) mg/dl Creatinine 0.8 (0.7-1.2) mg/dl Glucose 101 (70-105) mg/dL Calcium 8.2 L (8.6-10.4) mg/dl Total Bilirubin 0.3 (0.0-1.0) mg/dL AST 33 (0-37) U/l ALT 56 H (0-40) U/l Alkaline Phosphatase 71 (39-117) U/L Total Protein 6.0 (5.9-8.4) gm/dL Albumin 2.5 L (3.2-5.2) gm/dL Assessment and Plan (1) Sepsis Status: Acute Current Visit: Yes (2) Severe sepsis Status: Acute Current Visit: Yes (3) Diabetic peripheral neuropathy Status: Chronic Current Visit: No (4) Skin ulcer, chronic Status: Chronic Current Visit: No - Time Spent With Patient Total time spent is greater than 50% in coordination of care (as documented) at patient's floor/unit and/or counseling patient: Assessment: Progressing well from wound care point of view. SIRS and Sepsis due to CSSSI resolved. Patient now has demarcating wounds posterior aspect of RIGHT heel and along anterior lower leg and ankle. Blood and wound cultures grew Strep agalactiae. Patient has responded well to IV Vancomycin and Zosyn. Plan: Discharge home on P O Augmentin 850 mg BID for 15 days. P O Cleocin 300 mg BID for 10 days. P O Ferrous Sulfate tablets 325 mg daily # 30 days. P O Vitamin C 1000 mg day # 30 days. P O Centrum Silver 1 Tablet daily # 30 days. DAILY wound care: Clean wounds with NS and apply GCB solution soaked wet gauze over wounds and cover with AMD gauze and Kerlix bandage from toes to calves. Protect with TYRELL boots. After discharge follow up at wound care center on Saturday02/12/2018 25 - 35 minutes
[2018-02-10] MEDS: cefTRIAXone 1 GM VIAL IV SCH (10:36)
[2018-02-10] MEDS: DOCUSATE SODIUM 100 MG CAPSULE PO SCH (10:36)
[2018-02-10] MEDS: ASPIRIN 81 MG TAB.CHEW PO SCH (10:37)
[2018-02-10] MEDS: sitaGLIPtin 100 MG TABLET PO SCH (10:37)
[2018-02-10] MEDS: MULTIVIT,THER IRON,CA,FA & MIN 1 TABLET PO SCH (10:37)
[2018-02-10] MEDS: HEPARIN 5,000 UNIT/ML VIAL SQ SCH (10:38)
[2018-02-10] MEDS ORDERED: GENTAMICIN SULFATE 40 MG, CLINDAMYCIN 300 MG, BACITRACIN 25,000 UNIT in SODIUM CHLORIDE... IRR SCH (11:00)
[2018-02-10] MEDS: SILVER SULFADIAZINE CREAM.TOP 25GM TOPICAL SCH (11:46)
--- NOTE | 2018-02-10 13:29 | Discharge Summary ---
Medical - DS: Prov Patient information: Note initiated : 02/10/18 at 1:13 pm Service Date, if different from initiated Date: [] Patient: Prince Yan 63 y/o M admitted on 02/06/18 for Cough/SOB,Hyponatremia /Sepsis. Date of admission: 02/06/18 14:35 Discharge date: 02/10/18 Primary care physician: Mahamed Huggins Attending physician on admission: Andrews Stuart Consults: 02/06/18 12:46 Consult to Physician [CONS] Stat Comment: Consulting Provider: Andrews Stuart Reason For Exam: Physician to Consult 02/06/18 15:50 Consult to Physician [CONS] Routine Comment: right foot diabetic wound Consulting Provider: David Hayes Reason For Exam: Physician to Consult Attending physician on discharge: Francesca Glaser Medical - DS: Meds - Discharge Medications Prescriptions: Insulin Glargine,Hum.rec.anlog [[place] De Paz] 48 unit SUB-Q QHS #6 ml Amoxicillin/Potassium Clav [Augmentin] 875 mg PO Q12H #20 tab Ascorbic Acid [Vitamin C] 500 mg PO BID #60 tab Bacitracin 25,000 unit IRR Q24H #1 vial Clindamycin [Cleocin] 300 mg IRR Q24H #300 mg Clindamycin HCl [Cleocin] 300 mg PO BID #20 cap Ferrous Sulfate [Iron] 325 mg PO BID #60 tab Gentamicin Sulfate 40 mg IRR Q24H #40 mg sitaGLIPtin [Januvia] 100 mg PO DAILY #30 tablet Active and Home Medications: Home Medications aspirin 81 mg tablet,delayed release 81 mg PO QDAY tab 04/07/15 [History Confirmed 02/06/18 Last Taken Unknown] glucagon (human recombinant) 1 mg injection kit 1 mg IM ONCE PRN #1 each [Rx Confirmed 02/06/18 Last Taken Unknown] insulin glargine (U-300) 300 unit/mL (1.5 mL) subcutaneous pen 40 unit SUB-Q QHS #6 ml 11/25/17 [Rx Confirmed 02/06/18 Last Taken Unknown] insulin lispro (U-100) 100 unit/mL subcutaneous pen See Label Instructions SUB- Q TID #15 ml 12/27/17 [Rx Confirmed 02/06/18 Last Taken Unknown] atorvastatin 20 mg tablet 20 mg PO QDAY #90 tab 01/13/18 [Rx Confirmed 02/06/18 Last Taken Unknown] lisinopril 20 mg-hydrochlorothiazide 12.5 mg tablet 1 tab PO QDAY 02/03/18 [ History Confirmed 02/06/18 Last Taken Unknown] Azithromycin [Zithromax] 250 mg PO DAILY #4 tab 02/04/18 [Rx Confirmed 02/06/18 Last Taken Unknown] Blood Sugar Diagnostic [Contour] 0 b .ROUTE .MEDSUPPLY 02/06/18 [History Confirmed 02/06/18 Last Taken Unknown] Pen Needle, Diabetic [Incontrol Pen Needle] 0 b .ROUTE .MEDSUPPLY 02/06/18 [ History Confirmed 02/06/18 Last Taken Unknown] Medical - DS: Hosp Hospital course: Mr. Yan is a 63 year old M with a history of poorly controlled diabetes, peripheral vascular disease, and nonhealing foot ulcers due to neuropathy who comes in with weakness shortness of breath and worsening right ankle redness discharge and swelling along with pain and shaking chills. Patient is a wound care patient and has been followed up by Dr. Hayes. Patient has noted worsening redness along the ankle/dorsum of the right foot and heel with associated discharge which was periodically evaluated at wound care clinic. patient has been using a cast and following up weekly. patient thinks that the ulcer has progressed due to friction from the cast. Symptoms have progressed over the last 2 weeks. He has associated fatigue, malaise and loss of appetite, lethargy and diminished functionality. He later developed shortness of breath. He now presents to the ER. Initial workup was significant for white count 25,000 along with systolics in the 90s and elevated lactic acid 4.9. foot x-ray reveals plantar soft tissue swelling. Recent A1c during office visit was 10.4 . His blood sugar today is 573. patient received first dose of antibiotics after cultures were drawn along with crystalloids. Hospitalist service was consulted in light of severe sepsis with hypotension and elevated lactate. At the time of evaluation patient is alert and oriented. He was able to answer most questions. Denies recent falls trauma except for friction from the cast. He does not feel pain secondary neuropathy, however he noticed worsening redness and swelling. He denies fever or arthralgia myalgia headache photophobia cough or shortness of breath. Denies diarrhea dysuria. He endorses to history as above. He is currently accompanied with his sister/ niece and ex-. significant to presenting history his diabetes is poorly controlled. He has attempted outpatient diabetic education with limited success. he is currently on basal bolus regime however his A1c remains elevated over 10. February 07-patient clinically improving. White count down from 25->14. Lactic acid normalized. creatinine down from 1.7-1.2. On antibiotic coverage. case discussed with Dr. Hayes wound care physician. Patient would not require debridement at this time. Also patient has shown remarkable improvement in the last 24 hours with resolution of sepsis. He'll be downgraded to medical floor from ICU. Anticipate 10-14 days antibiotics along with continued wound care. February 08-patient continues to improve. One set of blood cultures positive for gram-positive cocci in chains, molecular identification consistent with Streptococcus agalactiae. Wound culture on the ankle with Streptococcus agalactiae, likely source of bacteremia. Wound continues to improve, seen with Dr. Hayes. Glucose under pretty good control. February 09-seen and examined on rounds. No new complaints. Tolerating antibiotics. Blood cultures finalized as S. agalactiae, same as in ankle wound/ cellulitis. Will need 10-14 days antibiotic therapy for blood stream infection. Only 1 of 2 sets were positive. February 10-remain stable. Has been seen by wound care. Discharge instructions discussed with the patient. We'll transition to oral antibiotics, continue for 14 day course. Daily dressing changes, follow-up in wound clinic on 02/12. Discharge diagnosis: Sepsis secondary to S. agalactiae skin and soft tissue infection Secondary discharge diagnosis: Type 2 DM, uncontrolled Streptococcus agalactiae bloodstream infection, 1 of 2 cultures sets positive Acute renal failure secondary to sepsis, resolved Elevated bilirubin secondary to sepsis, resolved Lower extremity diabetic ulcer managed by Dr. Hayes Hyperlipidemia Hypertension - Time Spent with Patient Total time spent providing and/or coordinating discharge services: Greater than 30 minutes Medical - DS: Exam - Constitutional Vitals: Vital Signs Temp Pulse Pulse Resp BP BP Pulse Ox 02/10/18 12:00 99.1 F H 92 H 20 134/73 97 02/10/18 06:25 98.0 F 18 124/75 97 02/10/18 04:00 99.1 F H 89 16 135/75 98 02/10/18 00:00 98.1 F 91 H 18 121/66 97 02/09/18 19:43 97.4 F 98 H 18 114/65 97 02/09/18 15:07 98.7 F 18 114/78 97 Intake and Output 02/09/18 02/10/18 02/10/18 21:59 05:59 13:59 Intake Total 288 / 288 400 / 400 Output Total 750 / 750 600 / 600 Balance -462 / -462 -200 / -200 Intake: IV 50 / 50 Zosyn 3.375 gm In Dextrose 5% 50 / 50 in Water 50 ml @ 100 mls/hr IV Q6H WILLOW Rx#:[id number] Oral 238 / 238 400 / 400 Output: Void Amount 750 / 750 600 / 600 Other: Meal Lunch Percent of Meal Consumed 25% # Voids 1 Weight 167 lb 8 oz Additional comments: General: No acute distress Chest: Clear Cardiac vascular: Regular rate and rhythm, no murmur Abdomen: Soft, nontender Musculoskeletal: Right lower extremity is wrapped, dressings intact Neuro: Alert, oriented 3 Medical - DS: Data Procedures and tests throughout hospitalization: Foot X-ray IMPRESSION: Plantar soft tissue swelling mid and hindfoot. First ray amputation changes at the PIP level. The stump is unremarkable. No specific radiographic evidence of osteomyelitis Marked hammertoe deformities second through fifth digits Pes cavus Chest X-ray IMPRESSION: Normal chest. Labs on day of discharge: Labs from last 24 hours 02/10/18 02/10/18 04:35 04:35 WBC 9.6 RBC 3.04 L Hgb 9.0 L Hct 26.4 L MCV 86.9 MCH 29.5 MCHC 33.9 RDW 14.5 Plt Count 148 MPV 9.4 Total Counted 100 Seg Neutrophils % 84 H Band Neutrophils % Not Reportable Lymphocytes % 11 L Monocytes % (Manual) 5 Platelet Estimate Normal RBC Morphology Abnorm A Anisocytosis Few A Sodium 138 Potassium 4.0 Chloride 104 Carbon Dioxide 22 Anion Gap 12.0 BUN 19 Creatinine 0.8 GFR Calculation 95 Glucose 101 Uric Acid 2.3 L Calcium 8.2 L Phosphorus 3.1 Magnesium 2.1 Total Bilirubin 0.3 Direct Bilirubin < 0.2 GGT 25 AST 33 ALT 56 H Alkaline Phosphatase 71 Lactate Dehydrogenase 169 Total Protein 6.0 Albumin 2.5 L Globulin 3.5 Albumin/Globulin Ratio 0.7 L Triglycerides 121 Preliminary micro results at discharge 02/06/18 08:45 Blood Culture - Preliminary Blood 02/06/18 08:50 Blood Culture - Preliminary Blood Gram positive cocci Medical - DS: A/P - Patient/Caregiver Discharge Instructions Activity: as instructed (toe touch weight bearing on right foot) Diet: Consistent Carbohydrate Additional Instructions: Wound Care instructions: Cleanse Right Foot wound with saline. Dress with GCB-moistened gauze, kerlix, MAURO. Change daily. Offload with Dale boot. Follow up Saturday at wound healing center. Other Amb Orders: Wound Care/Dressings Location: Determined By Patient - Follow up Plan Follow up with: Mahamed Huggins PA-C [Primary Care Provider] - David Hayes MD [Physician] - 02/12/18 (follow up at wound healing clinic Saturday after discharge) Disposition: Home, Self-Care Prognosis: Fair Rehab Potential: Fair Overall status at discharge: patient is progressing back to baseline Medical - DS: Qual - VTE Deep Vein Thrombosis/Pulmonary Embolism Present on Admission: No
[2018-02-10] MEDS ORDERED: PNEUMOCOCCAL 23-VAL P-SAC VAC 0.5 ML VIAL IM ONE (15:45)
== END 2018-02-10 16:20 | disposition home or self-care (01) | DRG 872 ==
LOC: ED 08:24 → ICU 14:35 → MEDSUR 02-07 11:45
PROVIDERS: ADMIT Internal Medicine; ATTEND Internal Medicine

== ENCOUNTER 2018-02-12 14:42 | Inpatient (IN) ==
--- NOTE | 2018-02-12 15:09 | Emergency Department Note ---
General Adult HPI - General Chief complaint: Weakness Stated complaint: Weakness Time Seen by Provider: 02/12/18 15:04 Source: patient, family Mode of arrival: wheelchair Limitations: no limitations - History of Present Illness HPI Narrative: This patient was admitted over the weekend with sepsis source being his foot. He was a wound care this afternoon had the foot attended to today and redressed. He is on antibiotics. He just does not feel like is getting well and still feels septic. He has had slight shortness of breath for couple weeks however his O2 saturation is 100% on room air. Vital signs all look good without anything worrisome at this time. - Related Data Home Medications Medication Instructions Recorded Confirmed aspirin 81 mg tablet,delayed 81 mg PO QDAY tab 04/07/15 02/12/18 release lisinopril 20 1 tab PO QDAY 02/03/18 02/12/18 mg-hydrochlorothiazide 12.5 mg tablet Blood Sugar Diagnostic [Contour] 0 b .ROUTE .MEDSUPPLY 02/06/18 02/12/18 Pen Needle, Diabetic [Incontrol 0 b .ROUTE .MEDSUPPLY 02/06/18 02/12/18 Pen Needle] Previous Rx's Medication Instructions Recorded glucagon (human recombinant) 1 mg 1 mg IM ONCE PRN #1 each 05/10/16 injection kit insulin lispro (U-100) 100 unit/mL See Label Instructions SUB-Q TID 12/27/17 subcutaneous pen #15 ml atorvastatin 20 mg tablet 20 mg PO QDAY #90 tab 01/13/18 Amoxicillin/Potassium Clav 875 mg PO Q12H #20 tab 02/10/18 [Augmentin] Ascorbic Acid [Vitamin C] 500 mg PO BID #60 tab 02/10/18 Bacitracin 25,000 unit IRR Q24H #1 vial 02/10/18 Clindamycin HCl [Cleocin] 300 mg PO BID #20 cap 02/10/18 Ferrous Sulfate [Iron] 325 mg PO BID #60 tab 02/10/18 Insulin Glargine,Hum.rec.anlog 48 unit SUB-Q QHS #6 ml 02/10/18 [[place] De Paz] Insulin Lispro [Humalog] 15 unit SQ TIDAC unit 02/10/18 Insulin Lispro [Humalog] See Protocol SQ ACHS unit 04/30/18 Multivit,Ther Iron,Ca,FA & Min 1 tab PO DAILY tab 02/10/18 [Multivitamin W/Minerals] sitaGLIPtin [Januvia] 100 mg PO DAILY #30 tab 02/10/18 benzonatate 200 mg capsule 200 mg PO TID PRN #10 cap 02/12/18 Allergies Allergy/AdvReac Type Severity Reaction Status Date / Time No Known Drug Allergies Allergy Verified 02/12/18 14:45 Review of Systems All systems ED: reviewed and negative except as stated. Past Medical History - Past Medical History [facility] Narrative: Medical History Diabetic peripheral neuropathy (Chronic) Diabetic neuropathy (Chronic) Pain in left hip (Chronic) Pain in joint, pelvic region and thigh (Chronic) Corneal abrasion (Chronic) Foot ulcer (Chronic) Ulcer of lower limbs, except pressure ulcer (Chronic) Tremor, essential (Chronic) Peripheral neuropathy (Chronic) Osteomyelitis (Resolved) History of noncompliance with medical treatment (Chronic) Microalbuminuria (Chronic) Hypertension, essential (Chronic) Hyperlipidemia (Chronic) DM (diabetes mellitus), type 2, uncontrolled (Chronic) DM type 2 (diabetes mellitus, type 2) (Chronic) 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) Past Surgical History History of surgery (Chronic) History of foot surgery (Chronic) History of foot surgery (Chronic) Family History Father Type 2 diabetes mellitus Malignant neoplasm Sister Hypercholesterolemia Acute myocardial infarction Unknown Essential hypertension Medical history: Reports: DM (With associated neuropathy), hyperlipidemia, other (Essential tremor, osteomyelitis) Surgical history ED: Reports: orthopedic, other (Prior amputation, multiple foot surgeries) - Social History smoking status: Former smoker Physical Exam Limitations: no limitations General appearance: alert Head: atraumatic Eye: Present: normal appearance ENT: normal exam Neck: Present: normal inspection Chest: Present: normal inspection Respiratory: Present: normal lung sounds bilaterally Cardiovascular: Present: regular rate, bradycardia, normal heart sounds Abdominal: Present: soft. Absent: distention, tenderness Neurological: Present: alert Psychiatric: Present: normal affect, normal mood Skin: Present: warm, dry, intact Course Vital Signs Temperature 97.2 F 02/12/18 14:43 Pulse Rate 103 H 02/12/18 14:43 Respiratory Rate 14 02/12/18 14:43 Blood Pressure 121/76 02/12/18 14:43 Pulse Oximetry (%) 99 02/12/18 14:43 Temperature 97.2 F 02/12/18 14:43 Pulse Rate 98 H 02/12/18 17:31 Respiratory Rate 18 02/12/18 17:31 Blood Pressure 142/68 02/12/18 17:31 Pulse Oximetry (%) 100 02/12/18 17:31 Medical Decision Making - MDM Narrative Medical decision making narrative: Patient's lab work looks good but the patient's foot looks terrible. He will be admitted to the hospital for cellulitis. - Lab Data Lab results reviewed: Yes I reviewed the patient's lab results. Result diagrams: 02/12/18 15:23 02/12/18 15:23 Lab Results 02/12/18 02/12/18 02/12/18 Range/Units 15:23 15:23 15:23 WBC 10.8 (4.5-11.0) K/mcL RBC 3.30 L (4.50-5.90) M/mcL Hgb 9.7 L (13.5-16.5) g/dL Hct 28.8 L (41.0-55.0) % MCV 87.0 (80.0-100.0) fL MCH 29.3 (26.0-34.0) pg MCHC 33.7 (31.0-36.0) g/dL RDW 13.9 (11.5-14.5) % Plt Count 211 (140-440) K/mcL MPV 9.3 (7.4-10.4) fL Gran % 82.1 H (38.0-78.0) % Lymph % (Auto) 7.7 L (15.5-49.0) % [place] % (Auto) 7.2 (1.0-12.0) % Eos % (Auto) 2.9 (0.0-7.0) % Baso % (Auto) 0.1 (0.0-2.0) % Gran # 8.9 H (1.8-8.0) K/mcL Lymph # (Auto) 0.8 L (1.5-4.8) K/mcL [place] # (Auto) 0.8 (0.1-0.9) K/mcL Eos # (Auto) 0.3 (0.0-0.7) K/mcL Baso # (Auto) 0 (0.0-0.3) K/mcL VBG Lactic Acid 1.2 (0.5-2.2) mmol/L Sodium 136 (133-145) mmol/L Potassium 4.5 (3.3-5.1) mmol/L Chloride 100 (96-108) mmol/L Carbon Dioxide 24 (22-30) mmol/L Anion Gap 12.0 (8-16) BUN 19 (8-23) mg/dl Creatinine 0.9 (0.7-1.2) mg/dl GFR Calculation 91 Glucose 100 (70-105) mg/dL Calcium 8.9 (8.6-10.4) mg/dl Total Bilirubin 0.5 (0.0-1.0) mg/dL AST 65 H (0-37) U/l ALT 99 H (0-40) U/l Alkaline Phosphatase 102 (39-117) U/L Total Protein 7.4 (5.9-8.4) gm/dL Albumin 3.0 L (3.2-5.2) gm/dL Globulin 4.4 H (2.2-3.7) gm/dL Albumin/Globulin Ratio 0.7 L (1.0-2.3) - Radiology Data Radiology results reviewed: Yes I reviewed the patient's radiology results. Disposition Pt seen by [facility]ULPA[facility] DRIVER/PA only: No Clinical Impression: Cellulitis Disposition: Xfer As Inpt ([facility]) Condition: Fair Referrals: Mahamed Huggins PA-C [Primary Care Provider] - Time of Disposition: 17:55
[2018-02-12] MEDS ORDERED: LACTATED RINGERS 1,000 ML IV ONE (15:50)
--- NOTE | 2018-02-12 15:54 | XRay Report ---
HISTORY: Reason for Exam:sob FINDINGS: The lungs are clear. The heart, mediastinum, barbi and pleura are normal. There has been no significant change since 02/06/18. IMPRESSION: Normal chest. Interpreted and Authenticated by: Adeel Wei 02/12/18
[2018-02-12 16:00] LABS: Basophils # (Auto) 0 K/mcL (0.0-0.3); Basophils % (Auto) 0.1 % (0.0-2.0); Eosinophils # (Auto) 0.3 K/mcL (0.0-0.7); Eosinophils % (Auto) 2.9 % (0.0-7.0); Granulocytes % (Auto) 82.1 % (38.0-78.0); Lymphocytes # (Auto) 0.8 K/mcL (1.5-4.8); Lymphocytes % (Auto) 7.7 % (15.5-49.0); Mean Corpuscular HGB Conc 33.7 g/dL (31.0-36.0); Mean Corpuscular Hemoglobin 29.3 pg (26.0-34.0); Monocytes # (Auto) 0.8 K/mcL (0.1-0.9); Monocytes % (Auto) 7.2 % (1.0-12.0); Platelet Count 211 K/mcL (140-440); Red Cell Distribution Width 13.9 % (11.5-14.5)
[2018-02-12 16:07] LABS: ALT/SGPT 99 U/l (0-40); Albumin/Globulin Ratio 0.7 (1.0-2.3); Alkaline Phosphatase 102 U/L (39-117); Blood Urea Nitrogen 19 mg/dl (8-23)
[2018-02-12 17:55] LABS: Appearance,Urine HAZY; Bacteria,Urine 0 /hpf (0); Bilirubin,Urine NEG (NEG); Color,Urine YELLOW; Glucose,Urine (UA) 50 mg/dL (NEG); Leukocyte Esterase,Urine NEG /uL (NEG); Mucus,Urine MANY /hpf (0); Protein,Urine 100 mg/dL (NEG); Specific Gravity,Urine 1.025 (1.000-1.035); Urine Blood NEG mg/dL (<0.03); Urine Hyaline Cast 2 /lpf (0-2); Urine RBC < 1 /hpf (0-1); Urine Squamous Epithelial Cell 0 /hpf (0-4); Urine WBC 1 /hpf (0-4)
--- NOTE | 2018-02-12 18:38 | Internal Med History&Physical ---
Medical - H&P: HPI Patient information: Note initiated : 02/12/18 at 6:34 pm Service Date, if different from initiated Date: [] Patient: Prince Yan a 63 y/o M admitted on for Weakness. Chief Complaint: [] History of present illness: Mr. Yan is a 63 year old Male with history of diabetes chronic wound on the right lower extremity recently discharged from this hospital on 10 February. The patient was admitted on 06 February recently admitted to the hospital diagnosis of severe sepsis, bacteremia due to strep algactae, secondary to infected right foot. The patient was treated with antibiotics and he had responded well to treatment. He was discharged on the home with oral antibiotics Augmentin and clindamycin. Patient notes that he takes both medications twice a day. Has not missed his dose. The patient notes that since the time of discharge his condition is slowly worsened. He is tired more fatigued. He also has some shortness of breath that has been going on for 2-3 weeks. He attributes his shortness of breath to chronic cough associated with lisinopril. The patient notes that since yesterday the erythema in his leg has worsened and has been spreading quickly. It had nearly resolved at the time of discharge. Was seen in the wound care clinic and was advised to come back to the emergency room for evaluation and admission. The ER he was sitting comfortably in bed, hemodynamically stable, just had finished a sandwich. Family by the bedside. Patient had no acute complaints or concerns. Labs reviewed patient has normal WBC count and stable chemistries. X-ray was reported as no acute abnormality. She is being admitted to the hospital for management of diabetic wound and cellulitis failed outpatient treatment. All systems: reviewed and no additional remarkable complaints except as stated ( 10 Point ROS done negative except as per HPI) Medical - H&P: PMH Medical history: Medical History Diabetic peripheral neuropathy (Chronic) Diabetic neuropathy (Chronic) Pain in left hip (Chronic) Pain in joint, pelvic region and thigh (Chronic) Corneal abrasion (Chronic) Foot ulcer (Chronic) Ulcer of lower limbs, except pressure ulcer (Chronic) Tremor, essential (Chronic) Peripheral neuropathy (Chronic) Osteomyelitis (Resolved) History of noncompliance with medical treatment (Chronic) Microalbuminuria (Chronic) Hypertension, essential (Chronic) Hyperlipidemia (Chronic) DM (diabetes mellitus), type 2, uncontrolled (Chronic) DM type 2 (diabetes mellitus, type 2) (Chronic) 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) Surgical history: Past Surgical History History of surgery (Chronic) History of foot surgery (Chronic) History of foot surgery (Chronic) Pertinent family history: Family History Father Type 2 diabetes mellitus Malignant neoplasm Sister Hypercholesterolemia Acute myocardial infarction Unknown Essential hypertension Medical - H&P: Meds Home Medications Medication Instructions Recorded Confirmed Type aspirin 81 mg tablet,delayed 81 mg PO QDAY tab 04/07/15 02/12/18 History release glucagon (human recombinant) 1 mg 1 mg IM ONCE PRN #1 each 05/10/16 02/12/18 Rx injection kit insulin lispro (U-100) 100 unit/mL See Label Instructions SUB-Q TID 12/27/1712/01 Rx subcutaneous pen #15 ml atorvastatin 20 mg tablet 20 mg PO QDAY #90 tab 01/13/18 02/12/18 Rx lisinopril 20 1 tab PO QDAY 02/03/18 02/12/18 History mg-hydrochlorothiazide 12.5 mg tablet Blood Sugar Diagnostic [Contour] 0 b .ROUTE .MEDSUPPLY 02/06/18 02/12/18 History Pen Needle, Diabetic [Incontrol 0 b .ROUTE .MEDSUPPLY 02/06/18 02/12/18 History Pen Needle] Amoxicillin/Potassium Clav 875 mg PO Q12H #20 tab 02/10/18 02/12/18 Rx [Augmentin] Ascorbic Acid [Vitamin C] 500 mg PO BID #60 tab 02/10/18 02/12/18 Rx Bacitracin 25,000 unit IRR Q24H #1 vial 02/10/18 02/12/18 Rx Clindamycin HCl [Cleocin] 300 mg PO BID #20 cap 02/10/18 02/12/18 Rx Ferrous Sulfate [Iron] 325 mg PO BID #60 tab 02/10/18 02/12/18 Rx Insulin Glargine,Hum.rec.anlog 48 unit SUB-Q QHS #6 ml 02/10/18 02/12/18 Rx [Toujeo Solostar] Insulin Lispro [Humalog] 15 unit SQ TIDAC unit 02/10/18 02/12/18 Rx Insulin Lispro [Humalog] See Protocol SQ ACHS unit 02/10/18 02/12/18 Rx Multivit,Ther Iron,Ca,FA & Min 1 tab PO DAILY tab 02/10/18 02/12/18 Rx [Multivitamin W/Minerals] sitaGLIPtin [Januvia] 100 mg PO DAILY #30 tab 02/10/18 02/12/18 Rx benzonatate 200 mg capsule 200 mg PO TID PRN #10 cap 02/12/18 02/12/18 Rx Allergies Allergy/AdvReac Type Severity Reaction Status Date / Time No Known Drug Allergies Allergy Verified 02/12/18 14:45 Medical - H&P: Exam - Constitutional Vitals: Temp Pulse Resp BP Pulse Ox 97.2 F 98 H 18 154/86 100 02/12/18 14:43 02/12/18 17:31 02/12/18 17:31 02/12/18 18:00 02/12/18 17:31 Exam: Constitutional; Afebrile, cooperative, alert, not in distress. Eyes- No icterus, , No periorbital swelling Ears- Ext ear normal, hearing normal to conversation. Neck- Midline trachea, supple Respiratory system: Air Entry equal on both sides, No crackles or wheezing, no rhonchi. CVS- Rate rhythm regular, S1,S2 heard, no gallop, no rub. Abdomen- Soft nontender abdomen, no organomegaly, no tenderness, no guarding or rigidity, UROLOGIC NURSE- AOOx3, moving all extremities, no gross focal deficit noted. RIght leg: Resting intact, patient did not wish that I remove the wound dressing that was placed in the wound clinic today. He showed me a picture of the wound, it notes that the patient has an irregular size wound on the dorsal aspect above the ankle, black eschar forms the base of this wound. Significant erythema surrounding the wound extending up to 5-10 cm from the edge of the ulcer. Patient also has some ulcers on the heel according to the patient. Medical - H&P: Reslt - Labs CBC & Chem 7: 02/12/18 15:23 02/12/18 15:23 Labs: Short CBC 02/12/18 Range/Units 15:23 WBC 10.8 (4.5-11.0) K/mcL Hgb 9.7 L (13.5-16.5) g/dL Hct 28.8 L (41.0-55.0) % Plt Count 211 (140-440) K/mcL BMP 02/12/18 15:23 Sodium 136 Potassium 4.5 Chloride 100 Carbon Dioxide 24 BUN 19 Creatinine 0.9 Glucose 100 Calcium 8.9 Liver Function 02/12/18 Range/Units 15:23 Total Bilirubin 0.5 (0.0-1.0) mg/dL AST 65 H (0-37) U/l ALT 99 H (0-40) U/l Alkaline Phosphatase 102 (39-117) U/L Albumin 3.0 L (3.2-5.2) gm/dL Urine 02/12/18 Range/Units 16:50 Urine Color Yellow Urine Appearance Hazy Urine pH 5.0 (5.0-9.0) Ur Specific [place] 1.025 (1.000-1.035) Urine Protein 100 A (NEG) mg/dL Urine Glucose (UA) 50 A (NEG) mg/dL Medical - H&P: A/P - Narrative A/P Narrative: A/P Infected Diabetic Wound: Black ischar noted on the pic, failed outpatient therapy?. Pt was on appropriate oral antibiotics for the isolated bacteria. Plan to resume vancomycin and zosyn for now. Wound care to be consulted. Noni gill will be evaluating the patient tomorrow, she has seen the pt in the clinic today. MRI of the ankle planned to evaluate deeper tissue involvement. Last admission X ray foot was done which was negative. DM: Glucose, Lantus 40 units at bedtime, medium dose sliding scale for now. Resume other home medications once verified. Shortness of breath-patient chest exam is clear, he is not hypoxic, and has been evaluated for same by his PCP. And thinks that this is related to his medication. Patient respiratory distress. Chest x-ray is negative. Monitor for now. Hypertension-resume home dose of medication BP stable Lipidemia-resume statin The prophylaxis-heparin subcutaneous Diabetic diet Wishes to be full code Social History - Social History marital status: occupational status: disabled leisure activities: other, fishing, hunting - Tobacco smoking status: Former smoker - Alcohol alcohol intake frequency: holiday/special occasion only - Substance use substance use type: former substance user
[2018-02-12] MEDS ORDERED: ACETAMINOPHEN 325 MG TABLET PO PRN (19:07)
[2018-02-12] MEDS ORDERED: VANCOMYCIN PER PHARMACY IV ONE (19:07)
[2018-02-12] MEDS ORDERED: DEXTROSE 50% 50 ML VIAL IV PRN (19:07)
[2018-02-12] MEDS ORDERED: DEXTROSE 31 GM ORAL.SUSP PO PRN (19:07)
[2018-02-12] MEDS ORDERED: ONDANSETRON 4 MG/2 ML VIAL IV PRN (19:07)
[2018-02-12] MEDS ORDERED: oxyCODONE HCL 5 MG TABLET PO PRN (19:07)
[2018-02-12] MEDS ORDERED: MAGNESIUM HYDROXIDE 30 ML ORAL.SUSP PO PRN (19:07)
[2018-02-12] MEDS ORDERED: NALOXONE HCL 0.4 MG/ML VIAL IV PRN (19:07)
[2018-02-12] MEDS: 0.9 % SODIUM CHLORIDE 10 ML SYRINGE IV SCH (20:04)
[2018-02-12] MEDS: PIPERACILLIN SODIUM/TAZOBACTAM 3.375 GM in DEXTROSE 5% IN WATER 50 ML IV SCH (20:04)
[2018-02-12] MEDS: HEPARIN 5,000 UNIT/ML VIAL SQ SCH (20:35)
[2018-02-12] MEDS: INSULIN LISPRO 1 UNIT/0.01 ML UNIT SQ SCH (20:38)
[2018-02-12] MEDS ORDERED: INSULIN GLARGINE, HUMAN 1 UNIT/0.01 ML SQ SCH (21:00)
[2018-02-12] MEDS ORDERED: VANCOMYCIN PER PHARMACY IV SCH (21:30)
[2018-02-12] MEDS: VANCOMYCIN 1,000 MG in 0.9 % SODIUM CHLORIDE 250 ML IV SCH (21:42)
[2018-02-13] MEDS: PIPERACILLIN SODIUM/TAZOBACTAM 3.375 GM in DEXTROSE 5% IN WATER 50 ML IV SCH ×4 (01:32→17:07)
[2018-02-13] MEDS: 0.9 % SODIUM CHLORIDE 10 ML SYRINGE IV SCH ×3 (06:03→21:28)
[2018-02-13 06:22] LABS: Basophils # (Auto) 0 K/mcL (0.0-0.3); Basophils % (Auto) 0.2 % (0.0-2.0); Eosinophils # (Auto) 0.3 K/mcL (0.0-0.7); Eosinophils % (Auto) 4.5 % (0.0-7.0); Lymphocytes # (Auto) 0.9 K/mcL (1.5-4.8); Lymphocytes % (Auto) 12.1 % (15.5-49.0); Mean Cell Volume 87.2 fL (80.0-100.0); Mean Corpuscular HGB Conc 33.7 g/dL (31.0-36.0); Mean Corpuscular Hemoglobin 29.4 pg (26.0-34.0); Monocytes # (Auto) 0.5 K/mcL (0.1-0.9); Monocytes % (Auto) 7.2 % (1.0-12.0); Platelet Count 164 K/mcL (140-440); Red Cell Distribution Width 14.2 % (11.5-14.5)
[2018-02-13 06:48] LABS: ALT/SGPT 87 U/l (0-40); Albumin 2.6 gm/dL (3.2-5.2); Albumin/Globulin Ratio 0.7 (1.0-2.3); Alkaline Phosphatase 86 U/L (39-117); Bilirubin,Direct < 0.2 mg/dL (0.0-0.3); Blood Urea Nitrogen 17 mg/dl (8-23); Gamma Glutamyl Transpeptidase 38 U/L (8-61); Uric Acid 2.9 mg/dL (2.5-8.0)
[2018-02-13] MEDS: INSULIN LISPRO 1 UNIT/0.01 ML UNIT SQ SCH ×4 (07:01→21:28)
[2018-02-13] MEDS: HEPARIN 5,000 UNIT/ML VIAL SQ SCH ×2 (08:57→21:28)
[2018-02-13] MEDS: VANCOMYCIN 1,000 MG in 0.9 % SODIUM CHLORIDE 250 ML IV SCH ×2 (08:57→21:27)
[2018-02-13] MEDS: COLLAGENASE TOP OINT TUBE 30GM TOPICAL SCH (10:40)
[2018-02-13] MEDS ORDERED: IOPAMIDOL 100 ML BOTTLE IV ONE (13:47)
--- NOTE | 2018-02-13 14:27 | Internal Med Progress Note ---
Medical - PN: Subj Patient information: Note initiated : 02/13/18 at 2:24 pm Service Date, if different from initiated Date: [] Patient: Prince Yan a 63 y/o M admitted on 02/12/18 for Weakness, Cellulitis. Chief Complaint: [] Interval history: Mr. Yan is a 63 year old Male with history of diabetes chronic wound on the right lower extremity recently discharged from this hospital on 10 February. The patient was admitted on 06 February recently admitted to the hospital diagnosis of severe sepsis, bacteremia due to strep algactae, secondary to infected right foot. The patient was treated with antibiotics and he had responded well to treatment. He was discharged on the home with oral antibiotics Augmentin and clindamycin. Patient notes that he takes both medications twice a day. Has not missed his dose. The patient notes that since the time of discharge his condition is slowly worsened. He is tired more fatigued. He also has some shortness of breath that has been going on for 2-3 weeks. He attributes his shortness of breath to chronic cough associated with lisinopril. The patient notes that since yesterday the erythema in his leg has worsened and has been spreading quickly. It had nearly resolved at the time of discharge. Was seen in the wound care clinic and was advised to come back to the emergency room for evaluation and admission. The ER he was sitting comfortably in bed, hemodynamically stable, just had finished a sandwich. Family by the bedside. Patient had no acute complaints or concerns. Labs reviewed patient has normal WBC count and stable chemistries. X-ray was reported as no acute abnormality. She is being admitted to the hospital for management of diabetic wound and cellulitis failed outpatient treatment. / Patient seen and examined, no acute overnight events. WBC count is normal labs stable ESR is high CRP is high. MRI is still pending. Wound care physician was concerned about possible poor blood supply. Will order CT angios the right lower extremity also. Continue vancomycin and Zosyn for now. There is improvement in the patient's erythema surrounding the wound today. Pertinent ROS: Denies headache, dizziness Denies chest pain, palpitations Denies cough or shortness of breath Denies abdominal pain, nausea or vomiting. - Constitutional Vitals: Vital Signs Temp Pulse Resp BP Pulse Ox 97.3 F 81 20 125/71 98 02/13/18 11:36 02/13/18 11:36 02/13/18 11:36 02/13/18 11:36 02/13/18 11:36 Period Temp Pulse Resp BP Sys/Ndiaye Pulse Ox Last 24 Hr 97.0 F-99.0 F 76-103 14-30 109-154/65-86 95-100 Intake and Output 02/13/18 02/13/18 02/13/18 05:59 13:59 21:59 Intake Total 450 / 450 910 / 910 Output Total 500 / 500 500 / 500 Balance -50 / -50 410 / 410 Weight 166 lb Patient Weight 02/14/18 05:59 Weight 166 lb Intake & Output: Intake & Output 02/13/18 02/13/18 02/13/18 05:59 13:59 21:59 Intake Total 450 / 450 910 / 910 Output Total 500 / 500 500 / 500 Balance -50 / -50 410 / 410 Weight 166 lb Intake: IV 300 / 300 350 / 350 Zosyn 3.375 gm In Dextrose 5% 50 / 50 100 / 100 in Water 50 ml @ 100 mls/hr IV Q6H [facility] Rx#:[id number] Vancomycin 1,000 mg In Sodium 250 / 250 250 / 250 Chloride 0.9% 250 ml @ 100 mls/ hr IV Q12H [facility] Rx#:[id number] Oral 150 / 150 560 / 560 Output: Void Amount 500 / 500 500 / 500 Other: Meal Lunch Percent of Meal Consumed 100% Feeding Ability Independent Exam: Constitutional; Afebrile, cooperative, alert, not in distress. Eyes- No icterus, , No periorbital swelling Ears- Ext ear normal, hearing normal to conversation. Neck- Midline trachea, supple Respiratory system: Air Entry equal on both sides, No crackles or wheezing, no rhonchi. CVS- Rate rhythm regular, S1,S2 heard, no gallop, no rub. Abdomen- Soft nontender abdomen, no organomegaly, no tenderness, no guarding or rigidity, [employer]- AOOx3, moving all extremities, no gross focal deficit noted. Medical - PN: Obj Da - Labs CBC & Chem 7: 02/13/18 04:10 02/13/18 04:10 Labs: Abnormal Lab Results 02/13/18 02/13/18 02/12/18 04:10 04:10 16:50 RBC 2.80 L Hgb 8.2 L Hct 24.4 L Gran % Lymph % (Auto) 12.1 L Gran # Lymph # (Auto) 0.9 L ESR Glucose 113 H Calcium 8.5 L AST 57 H ALT 87 H C-Reactive Protein Albumin 2.6 L Globulin Albumin/Globulin Ratio 0.7 L Urine Protein 100 A Urine Glucose (UA) 50 A Urine Urobilinogen 4.0 A Urine Mucus Many A 02/12/18 02/12/18 02/12/18 15:53 15:53 15:23 RBC Hgb Hct Gran % Lymph % (Auto) Gran # Lymph # (Auto) ESR > 120 H Glucose Calcium AST 65 H ALT 99 H C-Reactive Protein 14.5 H Albumin 3.0 L Globulin 4.4 H Albumin/Globulin Ratio 0.7 L Urine Protein Urine Glucose (UA) Urine Urobilinogen Urine Mucus 02/12/18 15:23 RBC 3.30 L Hgb 9.7 L Hct 28.8 L Gran % 82.1 H Lymph % (Auto) 7.7 L Gran # 8.9 H Lymph # (Auto) 0.8 L ESR Glucose Calcium AST ALT C-Reactive Protein Albumin Globulin Albumin/Globulin Ratio Urine Protein Urine Glucose (UA) Urine Urobilinogen Urine Mucus Meds: Medications Acetaminophen (Tylenol) 650 mg PO Q6HP PRN PRN Reason: PAIN/FEVER > 101 Collagenase (Santyl Top Oint) 1 dose TOPICAL DAILY [facility] Last Admin: 02/13/18 10:40 Dose: 1 mg Dextrose (Dextrose 50%) 0 ml IV UD PRN PRN Reason: Hypoglycemia Diagnostic Test (Pha) (Accu-Chek) 1 each FS ACHS [facility] Last Admin: 02/13/18 11:57 Dose: 1 each Glucose (Insta-Glucose) 15 gm PO PRN PRN PRN Reason: Hypoglycemia Heparin Sodium (Porcine) (Heparin) 5,000 unit SQ Q12 [facility] Last Admin: 02/13/18 08:57 Dose: 5,000 unit Piperacillin Sod/Tazobactam (Sod 3.375 gm/ Dextrose) 50 mls @ 100 mls/hr IV Q6H [facility] Last Infusion: 02/13/18 12:30 Dose: Infused Vancomycin HCl 1,000 mg/ (Sodium Chloride) 250 mls @ 100 mls/hr IV Q12H [facility] Last Infusion: 02/13/18 11:30 Dose: Infused Insulin Human Lispro (Humalog) 0 unit SQ ACHS [facility] PRN Reason: Protocol Last Admin: 02/13/18 11:57 Dose: 6 unit Magnesium Hydroxide (Milk Of Magnesia) 30 ml PO DAILYP PRN PRN Reason: Constipation Naloxone HCl (Narcan) 0.1 mg IV Q2MIN PRN PRN Reason: Opiate Reversal Ondansetron HCl (Zofran) 4 mg IV Q6HP PRN PRN Reason: Nausea And Vomiting Oxycodone HCl (Roxicodone) 5 mg PO Q4HP PRN PRN Reason: Pain Sodium Chloride (Saline Flush) 10 ml IV Q8 [facility] Last Admin: 02/13/18 13:59 Dose: 10 ml Vancomycin HCl (Vancomycin Per Pharmacy) 1 order IV [facility] [place] - PN: A/P - Time Spent With Patient Total time spent is greater than 50% in coordination of care (as documented) at patient's floor/unit and/or counseling patient: - Narrative A/P Narrative: A/P Infected Diabetic Wound: Black ischar noted on the pic, failed outpatient therapy?. Pt was on appropriate oral antibiotics for the isolated bacteria. Plan to resume vancomycin and zosyn for now. Wound care plans to evaluate the patient. CT angio of the right lower extremity ordered to evaluate for blood supply. MRI of the right ankle ordered to evaluate to see if there is any deep tissue involvement or osteomyelitis. DM: Glucose, Lantus 40 units at bedtime, medium dose sliding scale for now. Glucose level is high, increase the dose of Lantus to 50 units. Shortness of breath-patient chest exam is clear, he is not hypoxic, and has been evaluated for same by his PCP. And thinks that this is related to his medication. Patient respiratory distress. Chest x-ray is negative. Monitor for now. Anemia: Hb dropped, no e/o bleed, monitor, for now, transfuse as necessary. Likely anemia of chronic disease, send workup, check occult stool Hypertension-resume home dose of medication BP stable Lipidemia-resume statin The prophylaxis-heparin subcutaneous Diabetic diet Wishes to be full code Medical - PN: Qual - VTE Deep Vein Thrombosis/Pulmonary Embolism Present on Admission: No
--- NOTE | 2018-02-13 14:36 | Cat Scan Report ---
History: Nonhealing Diabetic wound in the right lower leg with cellulitis: evaluate blood supply Technique: 100 cc of Isovue contrast was injected intravenously. Arterial phase images were acquired from the distal thigh to the foot. Sagittal, coronal and 3-D volume rendered images were then created. Findings: There are scattered calcified plaques in the popliteal artery. This is causing less than 50% stenosis. Soft plaque is present at the origin of the common peroneal trunk causing 40% stenosis. There is a series of plaques in the anterior tibial artery from the upper calf down to the ankle. Most of them are soft plaque. There is a large calcified plaque in the upper calf causing approximately 70% stenosis. The dorsalis pedis artery crosses the ankle joint. The posterior tibial artery has a small amount of plaque in the mid calf causing 50% stenosis. Posterior tibial crosses ankle joint. The peroneal artery is normal in caliber and there is no significant plaque formation. Peroneal artery also crosses ankle joint. There is edema or cellulitis around the ankle. No abscess is seen. Bone windows show a cortical erosion along the posterior border of the calcaneus. There is also significant thinning of the overlying skin at the level of the erosion. Impression: Erosion along the posterior border of the calcaneus which may be a combination of osteomyelitis and surgical debridement. Moderate atherosclerosis from the popliteal artery to the calf. There are short segment hemodynamically significant stenoses in the anterior tibial artery. Interpreted and Authenticated by: Adeel Wei 02/13/18
[2018-02-13] MEDS ORDERED: GADOBUTROL 7.5 MMOL/7.5 ML VIAL IV ONE (15:45)
--- NOTE | 2018-02-13 17:15 | Magnetic Resonance Report ---
History: Nonhealing wounds in the right foot and heel. Patient is diabetic, evaluate for osteomyelitis Technique: Multiplanar imaging was performed using multiple pulse sequences. Gadolinium contrast was injected. Postcontrast T1-weighted views were acquired. Findings: There is a small cortical erosion along the posterior border of the calcaneus, along the lateral side. This is located close to the insertion of the Achilles tendon. This has low signal on T1, increased signal on T2 and enhances with contrast. There is edema in the surrounding bone marrow. Lateral to the posterior border of the calcaneus, at the level of the erosion there is a small subcutaneous abscess. It measures 5 x 7 mm. There is another small abscess collection along the medial side of the posterior border of the calcaneus and adjacent to the Achilles tendon. This is best seen on the coronal T1 postcontrast view and measures 6 x 17 x 29 mm. There is enhancement along the periphery. The Achilles tendon is normal without evidence of inflammation or tear. Patient has moderate size osteophytes at the insertion of the Achilles into the calcaneus and along the plantar surface of the calcaneus. There is significant loss of the skin posterior to the posterior border of the calcaneus. Has the patient had surgical debridement in this region? There is generalized subcutaneous edema and cellulitis surrounding the foot and ankle. No joint effusion is present. There is also no fracture. Impression: Small cortical erosion due to osteomyelitis along the posterior border of the calcaneus Two small subcutaneous abscesses posterior to the calcaneus. The larger is located medially and the smaller is located laterally Interpreted and Authenticated by: Adeel Wei 02/13/18
[2018-02-13 21:02] LABS: Retic Absolute 1.5 % (0.5-1.5)
[2018-02-13] MEDS: INSULIN GLARGINE, HUMAN 1 UNIT/0.01 ML SQ SCH (21:28)
[2018-02-14] MEDS: PIPERACILLIN SODIUM/TAZOBACTAM 3.375 GM in DEXTROSE 5% IN WATER 50 ML IV SCH ×4 (00:24→19:09)
[2018-02-14] MEDS: 0.9 % SODIUM CHLORIDE 10 ML SYRINGE IV SCH ×3 (05:40→21:22)
[2018-02-14 06:24] LABS: Basophils # (Auto) 0 K/mcL (0.0-0.3); Basophils % (Auto) 0.3 % (0.0-2.0); Eosinophils # (Auto) 0.2 K/mcL (0.0-0.7); Eosinophils % (Auto) 2.4 % (0.0-7.0); Granulocytes % (Auto) 77.6 % (38.0-78.0); Lymphocytes # (Auto) 0.8 K/mcL (1.5-4.8); Mean Cell Volume 87.1 fL (80.0-100.0); Mean Corpuscular HGB Conc 33.4 g/dL (31.0-36.0); Mean Corpuscular Hemoglobin 29.1 pg (26.0-34.0); Monocytes # (Auto) 0.4 K/mcL (0.1-0.9); Monocytes % (Auto) 6.7 % (1.0-12.0); Platelet Count 165 K/mcL (140-440); RBC 2.82 M/mcL (4.50-5.90); Red Cell Distribution Width 14.1 % (11.5-14.5)
[2018-02-14 06:53] LABS: ALT/SGPT 83 U/l (0-40); Albumin 2.6 gm/dL (3.2-5.2); Albumin/Globulin Ratio 0.7 (1.0-2.3); Alkaline Phosphatase 89 U/L (39-117); Bilirubin,Direct < 0.2 mg/dL (0.0-0.3); Blood Urea Nitrogen 17 mg/dl (8-23); C-Reactive Protein 7.8 mg/dl (0.0-0.8); Gamma Glutamyl Transpeptidase 37 U/L (8-61); Iron 35 mcg/dl (61-157); Transferrin % Saturation 29 % (20-50); Unsaturated Iron Binding 85 mcg/dL (112-346); Uric Acid 2.4 mg/dL (2.5-8.0)
[2018-02-14 07:00] LABS: Vitamin B12 753.2 pg/ml (232-1245)
[2018-02-14 07:50] LABS: Erythrocyte Sedimentation Rate > 120 mm/hr (0-15)
[2018-02-14] MEDS: INSULIN LISPRO 1 UNIT/0.01 ML UNIT SQ SCH ×5 (07:57→23:34)
--- NOTE | 2018-02-14 09:21 | Orthopedic Consult Note ---
History of Present Illness - [facility] Patient information: Note initiated : 02/14/18 at 9:18 am Service Date, if different from initiated Date: [] Patient: Prince Yan 63 y/o M admitted on 02/12/18 for Weakness, Cellulitis. Chief Complaint: [right heel wound] Consult date: 02/13/18 Requesting physician: Shelia Garcia Consult reason: other (right heel osteomyelitis) History of present illness: History gathered as a wound care patient: 01/18/2015 Lower extremity traumatic ulceration complicated by venous vascular disease and essentially turning into a venous ulcer on the right lateral distal calf. He has been dressing this on a regular basis and we have been seeing progress of healing. 12/27/2014 Right lateral calf wound. 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 Wound healing is severely compromised by his significant diabetic neuropathy and vascular insufficiency.he has been doing his wound care per order, continues on antibiotics, and reports no difficulties. He is changing his dressing every other day. 10 system review inquired, no new or intercurrent current problems are reported. 12/16/2014 Lower extremity ulcer. Patient was initially seen for evaluation of this on . He states in general he thinks things are coming along. It has been feeling better. He has no other new identified issues or problems since he was last in the office. 12/08/2014 Right lower extremity lateral midcalf ulcer. This is a traumatic ulcer. This has been going on now for a period of a few weeks. It started with a fall, and then progressed and was only worsened despite treatment with antibiotics and dressing using moist wound healing. Patient is a type 2 diabetic. He has high blood pressure, and he also has diabetic neuropathic disease. It is noted that patient has chronic hemosiderin staining and very widespread changes of venous vascular disease. He is unaware of any primary peripheral arterial disease and has never had any venous ulcer problems in the past. Patient has a left first ray and a right great toe amputation the past. The patient has diabetic shoes he is currently using on a regular basis. 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 He says that his general health has been stable. He says his blood sugars have been well controlled, and his blood pressure has been well controlled. He regularly gets care. SIGNIFICANT PROBLEMS AND IDENTIFIED COMORBIDITIES: 1. Lateral right midcalf ulcer. This appears infected. It is down into and including subcutaneous tissue. 2. Patient has stigmata of significant chronic venous vascular disease with hemosiderin staining, venous varicosities, and demonstrated slow wound healing with exacerbation of edema secondary to recent injury. 3. Patient has type 2 diabetes mellitus. This is only under fair control. Patient recently saw Dr. Hernandez and also saw MARIANELA Pritchett. His recent glycohemoglobin was 10.1%. 4. Patient has hypertension. This is well controlled. 5. Patient has diabetic foot disease with past left first ray and right great toe amputation. 6. Essential tremor. 7. Hyperlipidemia. Review of Systems Constitutional: as per HPI Past History Past medical history: 250.80 - Diabetes Mellitus with other specified manifestations,type II or unspecified, not stated as uncontrolled 707.15 - Chronic Ulcer of skin; Ulcer of lower limbs, except pressure ulcer; Ulcer of other part of foot 682.7 - Other Cellulitis and abscess; Foot,Heel (except toes) 041.09 - Streptococcus; Other Streptococcus 041.19 - Staphylococcus; Other Staphylococcus 041.89 - Other specified bacterial infections; Other specified bacteria 401.9 - Essential hypertension - unspecified 735.4 - Acquired deformities of toe; Other hammer toe (acquired) 917.0 - Superficial injury of foot and toe(s); Abrasion or friction burn without mention of infection E928.9 - Other Accidents; Unspecified accident 110.1 - Dermatophytosis of Nail/Onychomycosis 459.30 - Chronic venous hypertension without complications 700 - Corns and Callosites Hyperlipidemia Osteomyelitis unspecified/other specific sites tremor essential/other specified forms microalbuminuria Past surgical history: Amputation right great toe Foot Surgery Left foot !st ray resection Foot Surgery Right; other Past family history: Cancer Sibling Diabetes Sibling Heart Disease Sibling Hypertension Sibling Past social history: Former smoker, Alcohol Use - occasiona Medications and Allergies Home Medications Medication Instructions Recorded Confirmed Type aspirin 81 mg tablet,delayed 81 mg PO QDAY tab 04/07/15 02/12/18 History release atorvastatin 20 mg tablet 20 mg PO QDAY #90 tab 01/13/18 02/12/18 Rx lisinopril 20 20 mg PO QDAY 02/03/18 02/12/18 History mg-hydrochlorothiazide 12.5 mg tablet Blood Sugar Diagnostic [[facility]] [facility] 02/12/18 History Pen Needle, Diabetic [Incontrol 0 b .ROUTE .[facility] 02/06/18 02/12/18 History Pen Needle] Amoxicillin/Potassium Clav 875 mg PO Q12H #20 tab 02/10/18 02/12/18 Rx [Augmentin] Ascorbic Acid [Vitamin C] 500 mg PO BID #60 tab 02/10/18 02/12/18 Rx Bacitracin 25,000 unit IRR Q24H #1 vial 02/10/18 02/12/18 Rx Clindamycin HCl [Cleocin] 300 mg PO BID #20 cap 02/10/18 02/12/18 Rx Insulin Glargine,Hum.rec.anlog 48 unit SUB-Q QHS #6 ml 02/10/18 02/12/18 Rx [Toujeo Solostar] Insulin Lispro [Humalog] 15 unit SQ TIDAC unit 02/10/18 02/12/18 Rx Fluticasone Furoate [Arnuity 1 puff IH DAILY 02/12/18 02/12/18 History Ellipta] benzonatate 200 mg capsule 200 mg PO TID PRN #10 cap 02/12/18 02/12/18 Rx Allergies Allergy/AdvReac Type Severity Reaction Status Date / Time No Known Drug Allergies Allergy Verified 02/12/18 14:45 Physical Examination - Ankle & Foot right Ankle appearance: other (Wound #2 Right, Posterior Heel is a chronic Rodrigues Grade 2 Diabetic Ulcer and has received a status of Not Healed. Subsequent wound encounter measurements are 4.3cm length x 7cm width x 0.6cm depth, with an area of 30.1 sq cm and a volume of 18.06 cubic cm. No tunneling has been noted. No sinus tract has been noted. No undermining has been noted. There is a moderate amount of sero-sanguineous drainage noted which has no odor. The patient reports no wound pain due to the wound being insensate. The wound margin is well defined. Wound bed has 26-50% eschar, 26-50% slough, no granulation; no epithelialization present. The wound is deteriorating. The periwound skin exhibited: Callus, Scarring, Dry/Scaly, Erythema. The periwound skin did not exhibit: Maceration. The temperature of the periwound skin is WNL. Periwound skin presents with s/s of infection. Confirmation Description & Treatment Plan is: Signs & Symptoms Present, Confirmed Systemic. Wound #3 Right , Anterior Foot is an acute Rodrigues Grade 3 Diabetic Ulcer and has received a status of Not Healed. Subsequent wound encounter measurements are 11cm length x 8.7cm width x 0.05cm depth, with an area of 95.7 sq cm and a volume of 4.785 cubic cm. No tunneling has been noted. No sinus tract has been noted. No undermining has been noted. There was no drainage noted. The patient reports no wound pain due to the wound being insensate. The wound margin is undefined. Wound bed has 76-100% eschar, no granulation; no slough and no epithelialization present. The wound is deteriorating. The periwound skin exhibited: Scarring, Dry/Scaly, Cyanosis, Erythema, Rubor. The temperature of the periwound skin is Warm. Periwound skin presents with s/s of infection. Confirmation Description & Treatment Plan is: Signs & Symptoms Present, Confirmed Systemic. HEART Inspection: No cardiac heaves or lifts. Symmetrical expansion with respiration, no other wall motions. LUNGS Lungs are clear to auscultation and percussion bilaterally ) Assessment and Plan (1) Cellulitis RIGHT HEEL: Surgical debridement of osteomyelitis with excision of calcaneal exostosis 25 Minutes spent educating the patient on common possible surgery complications including but not limited to: Pain / swelling Infection Deep vein Thrombosis (blood clot) Delayed healing Scarring Chronic regional pain syndrome (Reflex sympathetic dystrophy) Recurrence Continued shoe difficulty Status: Acute
[2018-02-14] MEDS: HEPARIN 5,000 UNIT/ML VIAL SQ SCH ×2 (09:49→21:21)
[2018-02-14] MEDS: COLLAGENASE TOP OINT TUBE 30GM TOPICAL SCH (09:53)
[2018-02-14] MEDS: VANCOMYCIN 1,000 MG in 0.9 % SODIUM CHLORIDE 250 ML IV SCH ×2 (10:28→21:14)
--- NOTE | 2018-02-14 12:23 | Brief Operative Note ---
Date of procedure: 02/14/18 Pre-op diagnosis: Osteomyelitis right calcaneus Post-op diagnosis: same Procedure: Right heel: Surgical debridement of osteomyelitis with excision of calcaneal exostosis Grafts/Implants: No Anesthesia: KAVON Surgeon: Fabio Brown Estimated blood loss (cc): 75 Specimens Removed/Pathology: other (bone right calcaneus) Condition: stable Disposition: floor
[2018-02-14] MEDS ORDERED: fentaNYL 100 MCG/2 ML VIAL IV ONE (13:10)
[2018-02-14] MEDS ORDERED: MIDAZOLAM 5 MG/5 ML VIAL IV ONE (13:10)
[2018-02-14] MEDS ORDERED: LIDOCAINE HCL/PF 100 MG/5 ML SYRINGE IV ONE (13:10)
[2018-02-14] MEDS ORDERED: ONDANSETRON 4 MG/2 ML VIAL IV ONE (13:10)
[2018-02-14] MEDS ORDERED: PROPOFOL 200 MG/20 ML VIAL IV ONE (13:10)
[2018-02-14] MEDS ORDERED: DEXAMETHASONE 10 MG/ML VIAL IV ONE (13:10)
[2018-02-14] MEDS ORDERED: ePHEDrine 50 MG/ML AMPUL IV ONE (13:10)
[2018-02-14] MEDS ORDERED: PROMETHAZINE 25 MG/ML VIAL IV PRN (13:50)
[2018-02-14] MEDS ORDERED: diphenhydrAMINE 50 MG/ML VIAL IV PRN (13:50)
[2018-02-14] MEDS ORDERED: fentaNYL 100 MCG/2 ML VIAL IV PRN (13:50)
[2018-02-14] MEDS ORDERED: NALOXONE HCL 0.4 MG/ML VIAL IV PRN (13:50)
[2018-02-14] MEDS ORDERED: FLUMAZENIL 0.1 MG/ML ML IV PRN (13:50)
[2018-02-14] MEDS ORDERED: MEPERIDINE 25 MG/ML SYRINGE IV PRN (13:50)
[2018-02-14] MEDS ORDERED: ONDANSETRON 4 MG/2 ML VIAL IV PRN (13:50)
[2018-02-14] MEDS ORDERED: LACTATED RINGERS 250 ML IV PRN (13:50)
[2018-02-14] MEDS ORDERED: IPRATROPIUM/ALBUTEROL 3 ML AMPUL.NEB NEB PRN (13:50)
[2018-02-14] MEDS ORDERED: BENZOCAINE/MENTHOL 1 LOZENGE PO PRN (13:50)
[2018-02-14] MEDS ORDERED: BUPIVACAINE 0.5% 50 ML VIAL IJ ONE (13:54)
[2018-02-14] MEDS ORDERED: LACTATED RINGERS 1,000 ML IV SCH (14:00)
--- NOTE | 2018-02-14 14:31 | Operative Note ---
DATE OF OPERATION: 02/14/2018 PREOPERATIVE DIAGNOSIS: Osteomyelitis, right calcaneus. POSTOPERATIVE DIAGNOSIS: Osteomyelitis, right calcaneus. PROCEDURE: Right heel surgical debridement of osteomyelitis at the excision of the calcaneal exostosis. SURGEON: Fabio Brown DPM. GRAFTS: None. ANESTHESIA: GETA. ESTIMATED BLOOD LOSS: 75 mL. SPECIMENS: Bone and culture of right calcaneus. CONDITION: Stable. DISPOSITION: PACU. PROCEDURE IN DETAIL: The patient was brought to the operating room and placed on the operating table in the left lateral position. The right lower extremity was scrubbed, prepped and draped in the usual aseptic manner. There was a full-thickness incision placed on the posterior aspect. There was exposed calcaneal bone through the posterior tubercle of the right calcaneus. This was debrided from surrounding necrotic tissue. A 2 cm portion ended up being debrided from the wound. There was a bone osteomyelitic sinus cloaca from the central lateral heel. Once there was no surgical clinical evidence of osteomyelitis, the bone was all sent for pathological analysis. There was also a culture taken from purulent drainage from the medial aspect of this region. There was no more necrotic tissue found deep. A 3 liter bag of normal saline was used for pulse lavage on the posterior aspect. The area was loosely closed with 3-0 Vicryl with skin and tendon coverage over the calcaneus. A total of 10 mL 0.5% Marcaine plain was infiltrated to the area in a field block. Xeroform, 4 x 4 gauze, Kerlix, and Ramon wrap were applied for dressings. He returned to the postoperative care unit for the floor for continued antibiotic therapy. KDJ:riley Job ID: [id number] Doc ID: [id number] Fabio Brown DPM
--- NOTE | 2018-02-14 15:54 | Internal Med Progress Note ---
Medical - PN: Subj Patient information: Note initiated : 02/14/18 at 3:43 pm Service Date, if different from initiated Date: [] Patient: Prince Yan a 63 y/o M admitted on 02/12/18 for Debridement of Right Heal, Excision of Bone Spur. Chief Complaint: [] Interval history: Mr. Yan is a 63 year old Male with history of diabetes chronic wound on the right lower extremity recently discharged from this hospital on 10 February. The patient was admitted on 06 February recently admitted to the hospital diagnosis of severe sepsis, bacteremia due to strep algactae, secondary to infected right foot. The patient was treated with antibiotics and he had responded well to treatment. He was discharged on the home with oral antibiotics Augmentin and clindamycin. Patient notes that he takes both medications twice a day. Has not missed his dose. The patient notes that since the time of discharge his condition is slowly worsened. He is tired more fatigued. He also has some shortness of breath that has been going on for 2-3 weeks. He attributes his shortness of breath to chronic cough associated with lisinopril. The patient notes that since yesterday the erythema in his leg has worsened and has been spreading quickly. It had nearly resolved at the time of discharge. Was seen in the wound care clinic and was advised to come back to the emergency room for evaluation and admission. The ER he was sitting comfortably in bed, hemodynamically stable, just had finished a sandwich. Family by the bedside. Patient had no acute complaints or concerns. Labs reviewed patient has normal WBC count and stable chemistries. X-ray was reported as no acute abnormality. She is being admitted to the hospital for management of diabetic wound and cellulitis failed outpatient treatment. 5/ Patient seen and examined, no acute overnight events. WBC count is normal labs stable ESR is high CRP is high. MRI is still pending. Wound care physician was concerned about possible poor blood supply. Will order CT angios the right lower extremity also. Continue vancomycin and Zosyn for now. There is improvement in the patient's erythema surrounding the wound today. 02/14 Pt seen examined, no acute overnight issues, toleraing po well s/p surgery this afternoon. infected material debrided await microbiology, continue broad spectrum abx for now consider ertapenum and vanco at discharge for another 2 weeks, if no pseudomonas noted. Pertinent ROS: Denies headache, dizziness Denies chest pain, palpitations Denies cough or shortness of breath Denies abdominal pain, nausea or vomiting. - Constitutional Vitals: Vital Signs Temp Pulse Resp BP Pulse Ox 98.9 F 93 H 19 116/64 97 02/14/18 14:39 02/14/18 14:39 02/14/18 14:39 02/14/18 14:39 02/14/18 14:39 Period Temp Pulse Resp BP Sys/Ndiaye Pulse Ox Last 24 Hr 98.0 F-99.5 F 80-93 12-28 104-135/58-75 94-100 Intake and Output 02/14/18 02/14/18 02/14/18 05:59 13:59 21:59 Intake Total 600 / 600 300 / 300 650 / 650 Output Total 600 / 600 1925 / 1925 100 / 100 Balance 0 / 0 -1625 / -1625 550 / 550 Intake & Output: Intake & Output 02/14/18 02/14/18 02/14/18 05:59 13:59 21:59 Intake Total 600 / 600 300 / 300 650 / 650 Output Total 600 / 600 1925 / 1925 100 / 100 Balance 0 / 0 -1625 / -1625 550 / 550 Intake: IV 300 / 300 300 / 300 650 / 650 Zosyn 3.375 gm In Dextrose 5% 50 / 50 50 / 50 50 / 50 in Water 50 ml @ 100 mls/hr IV Q6H [facility] Rx#:[id number] Vancomycin 1,000 mg In Sodium 250 / 250 250 / 250 Chloride 0.9% 250 ml @ 100 mls/ hr IV Q12H [facility] Rx#:[id number] Oral 300 / 300 Output: Void Amount 600 / 600 1925 / 1925 Estimated Blood Loss 100 / 100 Other: # Voids 1 Exam: Constitutional; Afebrile, cooperative, alert, not in distress. Eyes- No icterus, , No periorbital swelling Ears- Ext ear normal, hearing normal to conversation. Neck- Midline trachea, supple Respiratory system: Air Entry equal on both sides, No crackles or wheezing, no rhonchi. CVS- Rate rhythm regular, S1,S2 heard, no gallop, no rub. 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 Medical - PN: Obj Da - Labs CBC & Chem 7: 02/14/18 04:25 02/14/18 04:25 Labs: Abnormal Lab Results 02/14/18 02/14/18 02/13/18 04:25 04:25 16:08 RBC 2.82 L Hgb 8.2 L Hct 24.6 L Gran % Lymph % (Auto) 13.0 L Gran # Lymph # (Auto) 0.8 L ESR > 120 H Haptoglobin 361 H Glucose 195 H Uric Acid 2.4 L Calcium Iron 35 L TIBC 120 L Unsat Iron Binding 85 L Ferritin 917.0 H AST 49 H ALT 83 H C-Reactive Protein 7.8 H Albumin 2.6 L Globulin 3.8 H Albumin/Globulin Ratio 0.7 L Triglycerides 153 H Urine Protein Urine Glucose (UA) Urine Urobilinogen Urine Mucus 02/13/18 02/13/18 02/12/18 04:10 04:10 16:50 RBC 2.80 L Hgb 8.2 L Hct 24.4 L Gran % Lymph % (Auto) 12.1 L Gran # Lymph # (Auto) 0.9 L ESR Haptoglobin Glucose 113 H Uric Acid Calcium 8.5 L Iron TIBC Unsat Iron Binding Ferritin AST 57 H ALT 87 H C-Reactive Protein Albumin 2.6 L Globulin Albumin/Globulin Ratio 0.7 L Triglycerides Urine Protein 100 A Urine Glucose (UA) 50 A Urine Urobilinogen 4.0 A Urine Mucus Many A 02/12/18 02/12/18 02/12/18 15:53 15:53 15:23 RBC Hgb Hct Gran % Lymph % (Auto) Gran # Lymph # (Auto) ESR > 120 H Haptoglobin Glucose Uric Acid Calcium Iron TIBC Unsat Iron Binding Ferritin AST 65 H ALT 99 H C-Reactive Protein 14.5 H Albumin 3.0 L Globulin 4.4 H Albumin/Globulin Ratio 0.7 L Triglycerides Urine Protein Urine Glucose (UA) Urine Urobilinogen Urine Mucus 02/12/18 15:23 RBC 3.30 L Hgb 9.7 L Hct 28.8 L Gran % 82.1 H Lymph % (Auto) 7.7 L Gran # 8.9 H Lymph # (Auto) 0.8 L ESR Haptoglobin Glucose Uric Acid Calcium Iron TIBC Unsat Iron Binding Ferritin AST ALT C-Reactive Protein Albumin Globulin Albumin/Globulin Ratio Triglycerides Urine Protein Urine Glucose (UA) Urine Urobilinogen Urine Mucus Meds: Medications Acetaminophen (Tylenol) 650 mg PO Q6HP PRN PRN Reason: PAIN/FEVER > 101 Collagenase (Santyl Top Oint) 1 dose TOPICAL DAILY [facility] Last Admin: 02/14/18 09:53 Dose: 1 mg Dextrose (Dextrose 50%) 0 ml IV UD PRN PRN Reason: Hypoglycemia Diagnostic Test (Pha) (Accu-Chek) [address] [facility] Last Admin: 02/14/18 11:28 Dose: 1 each Glucose (Insta-Glucose) 15 gm PO PRN PRN PRN Reason: Hypoglycemia Heparin Sodium (Porcine) (Heparin) 5,000 unit SQ Q12 [facility] Last Admin: 02/14/18 09:49 Dose: Not Given Piperacillin Sod/Tazobactam (Sod 3.375 gm/ Dextrose) 50 mls @ 100 mls/hr IV Q6H [facility] Last Infusion: 02/14/18 15:20 Dose: Infused Vancomycin HCl 1,000 mg/ (Sodium Chloride) 250 mls @ 100 mls/hr IV Q12H [facility] Last Infusion: 02/14/18 13:00 Dose: Infused Insulin Glargine (Lantus) 50 unit SQ HS [facility] Last Admin: 02/13/18 21:28 Dose: 50 unit Insulin Human Lispro (Humalog) 0 unit SQ [facility] PRN Reason: Protocol Last Admin: 02/14/18 11:28 Dose: Not Given Magnesium Hydroxide (Milk Of Magnesia) 30 ml PO DAILYP PRN PRN Reason: Constipation Naloxone HCl (Narcan) 0.1 mg IV Q2MIN PRN PRN Reason: Opiate Reversal Ondansetron HCl (Zofran) 4 mg IV Q6HP PRN PRN Reason: Nausea And Vomiting Oxycodone HCl (Roxicodone) 5 mg PO Q4HP PRN PRN Reason: Pain Sodium Chloride (Saline Flush) 10 ml IV Q8 [facility] Last Admin: 02/14/18 14:50 Dose: Not Given Vancomycin HCl (Vancomycin Per Pharmacy) 1 order IV [facility] Medical - PN: A/P - Time Spent With Patient Total time spent is greater than 50% in coordination of care (as documented) at patient's floor/unit and/or counseling patient: - Narrative A/P Narrative: A/P Infected Diabetic Wound/ Calcaneal Osteomyelitis: s/p debridement of OM by dr deluna. c ontinue antibiotics. await sensitivities. DM: Glucose, Lantus 50 units at bedtime, medium dose sliding scale for now. monitor glucose and titrate Shortness of breath-patient chest exam is clear, he is not hypoxic, and has been evaluated for same by his PCP. And thinks that this is related to his medication. Patient respiratory distress. Chest x-ray is negative. Monitor for now. Anemia: Hb dropped, no e/o bleed, monitor, for now, transfuse as necessary. Likely anemia of chronic disease, workup suggestive of same. Hypertension-resume home dose of medication BP stable Lipidemia-resume statin The prophylaxis-heparin subcutaneous Diabetic diet Wishes to be full code Medical - PN: Qual - VTE Deep Vein Thrombosis/Pulmonary Embolism Present on Admission: No
[2018-02-14] MEDS: INSULIN GLARGINE, HUMAN 1 UNIT/0.01 ML SQ SCH (21:21)
[2018-02-15] MEDS: PIPERACILLIN SODIUM/TAZOBACTAM 3.375 GM in DEXTROSE 5% IN WATER 50 ML IV SCH ×4 (00:20→18:50)
[2018-02-15] MEDS: 0.9 % SODIUM CHLORIDE 10 ML SYRINGE IV SCH ×4 (06:00→21:00)
[2018-02-15 06:06] LABS: Basophils # (Auto) 0 K/mcL (0.0-0.3); Basophils % (Auto) 0.1 % (0.0-2.0); Eosinophils # (Auto) 0.2 K/mcL (0.0-0.7); Eosinophils % (Auto) 2.2 % (0.0-7.0); Granulocytes % (Auto) 83.8 % (38.0-78.0); Lymphocytes # (Auto) 0.8 K/mcL (1.5-4.8); Lymphocytes % (Auto) 9.2 % (15.5-49.0); Mean Cell Volume 86.8 fL (80.0-100.0); Mean Corpuscular HGB Conc 33.1 g/dL (31.0-36.0); Mean Corpuscular Hemoglobin 28.8 pg (26.0-34.0); Monocytes # (Auto) 0.4 K/mcL (0.1-0.9); Monocytes % (Auto) 4.7 % (1.0-12.0); Platelet Count 168 K/mcL (140-440); RBC 2.63 M/mcL (4.50-5.90); Red Cell Distribution Width 13.9 % (11.5-14.5)
[2018-02-15 06:33] LABS: ALT/SGPT 69 U/l (0-40); Albumin 2.5 gm/dL (3.2-5.2); Albumin/Globulin Ratio 0.7 (1.0-2.3); Alkaline Phosphatase 86 U/L (39-117); Bilirubin,Direct < 0.2 mg/dL (0.0-0.3); Blood Urea Nitrogen 24 mg/dl (8-23); Gamma Glutamyl Transpeptidase 35 U/L (8-61); Uric Acid 2.9 mg/dL (2.5-8.0)
[2018-02-15] MEDS: INSULIN LISPRO 1 UNIT/0.01 ML UNIT SQ SCH ×6 (07:25→21:01)
[2018-02-15] MEDS: HEPARIN 5,000 UNIT/ML VIAL SQ SCH ×2 (08:03→21:00)
[2018-02-15] MEDS: VANCOMYCIN 1,000 MG in 0.9 % SODIUM CHLORIDE 250 ML IV SCH ×2 (09:18→20:59)
[2018-02-15] MEDS ORDERED: INSULIN LISPRO 1 UNIT/0.01 ML UNIT SQ ONE (12:44)
[2018-02-15] MEDS ORDERED: 0.9 % SODIUM CHLORIDE 10 ML SYRINGE IV PRN (13:05)
--- NOTE | 2018-02-15 13:21 | Internal Med Progress Note ---
Medical - PN: Subj Patient information: Note initiated : 02/15/18 at 1:19 pm Service Date, if different from initiated Date: [] Patient: Prince Yan a 63 y/o M admitted on 02/12/18 for Debridement of Right Heal, Excision of Bone Spur. Chief Complaint: [] Interval history: Mr. Yan is a 63 year old Male with history of diabetes chronic wound on the right lower extremity recently discharged from this hospital on 10 February. The patient was admitted on 06 February recently admitted to the hospital diagnosis of severe sepsis, bacteremia due to strep algactae, secondary to infected right foot. The patient was treated with antibiotics and he had responded well to treatment. He was discharged on the home with oral antibiotics Augmentin and clindamycin. Patient notes that he takes both medications twice a day. Has not missed his dose. The patient notes that since the time of discharge his condition is slowly worsened. He is tired more fatigued. He also has some shortness of breath that has been going on for 2-3 weeks. He attributes his shortness of breath to chronic cough associated with lisinopril. The patient notes that since yesterday the erythema in his leg has worsened and has been spreading quickly. It had nearly resolved at the time of discharge. Was seen in the wound care clinic and was advised to come back to the emergency room for evaluation and admission. The ER he was sitting comfortably in bed, hemodynamically stable, just had finished a sandwich. Family by the bedside. Patient had no acute complaints or concerns. Labs reviewed patient has normal WBC count and stable chemistries. X-ray was reported as no acute abnormality. She is being admitted to the hospital for management of diabetic wound and cellulitis failed outpatient treatment. 02/13 Patient seen and examined, no acute overnight events. WBC count is normal labs stable ESR is high CRP is high. MRI is still pending. Wound care physician was concerned about possible poor blood supply. Will order CT angios the right lower extremity also. Continue vancomycin and Zosyn for now. There is improvement in the patient's erythema surrounding the wound today. 02/14 Pt seen examined, no acute overnight issues, toleraing po well s/p surgery this afternoon. infected material debrided await microbiology, continue broad spectrum abx for now consider ertapenum and vanco at discharge for another 2 weeks, if no pseudomonas noted. 5/5 Patient seen and examined, no acute overnight events. Some discomfort in the site of surgery otherwise no issues. Cultures growing gram-positive cocci in pairs and chains. Isolation pending. Continue vancomycin and Zosyn for now. Review plan of care with podiatry Get PICC line Pertinent ROS: Denies headache, dizziness Denies chest pain, palpitations Denies cough or shortness of breath Denies abdominal pain, nausea or vomiting. - Constitutional Vitals: Vital Signs Temp Pulse Resp BP Pulse Ox 98.3 F 88 16 109/67 97 02/15/18 12:00 02/15/18 06:53 02/15/18 12:00 02/15/18 12:00 02/15/18 12:00 Period Temp Pulse Resp BP Sys/Ndiaye Pulse Ox Last 24 Hr 97.2 F-99.0 F 87-97 12-24 104-125/58-80 92-100 Intake and Output 02/14/18 02/15/18 02/15/18 21:59 05:59 13:59 Intake Total 1025 / 1025 350 / 350 300 / 300 Output Total 100 / 100 875 / 875 Balance 925 / 925 -525 / -525 300 / 300 Weight 166 lb 8 oz Intake & Output: Intake & Output 02/14/18 02/15/18 02/15/18 21:59 05:59 13:59 Intake Total 1025 / 1025 350 / 350 300 / 300 Output Total 100 / 100 875 / 875 Balance 925 / 925 -525 / -525 300 / 300 Weight 166 lb 8 oz Intake: IV 700 / 700 50 / 50 300 / 300 Zosyn 3.375 gm In Dextrose 5% 100 / 100 50 / 50 50 / 50 in Water 50 ml @ 100 mls/hr IV Q6H [facility] Rx#:[id number] Vancomycin 1,000 mg In Sodium 250 / 250 Chloride 0.9% 250 ml @ 100 mls/ hr IV Q12H [facility] Rx#:[id number] Oral 325 / 325 300 / 300 Output: Void Amount 875 / 875 Estimated Blood Loss 100 / 100 Other: # Voids 1 Exam: Constitutional; Afebrile, cooperative, alert, not in distress. Eyes- No icterus, , No periorbital swelling Ears- Ext ear normal, hearing normal to conversation. Neck- Midline trachea, supple Respiratory system: Air Entry equal on both sides, No crackles or wheezing, no rhonchi. CVS- Rate rhythm regular, S1,S2 heard, no gallop, no rub. 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 Medical - PN: Obj Da - Labs CBC & Chem 7: 02/15/18 04:20 02/15/18 04:20 Labs: Abnormal Lab Results 02/15/18 02/15/18 02/14/18 04:20 04:20 04:25 RBC 2.63 L Hgb 7.6 L Hct 22.8 L Gran % 83.8 H Lymph % (Auto) 9.2 L Gran # Lymph # (Auto) 0.8 L ESR Haptoglobin BUN 24 H Glucose 210 H 195 H Uric Acid 2.4 L Calcium 8.3 L Iron 35 L TIBC 120 L Unsat Iron Binding 85 L Ferritin 917.0 H AST 49 H ALT 69 H 83 H C-Reactive Protein 7.8 H Albumin 2.5 L 2.6 L Globulin 3.8 H Albumin/Globulin Ratio 0.7 L 0.7 L Triglycerides 153 H Urine Protein Urine Glucose (UA) Urine Urobilinogen Urine Mucus 02/14/18 02/13/18 02/13/18 04:25 16:08 04:10 RBC 2.82 L Hgb 8.2 L Hct 24.6 L Gran % Lymph % (Auto) 13.0 L Gran # Lymph # (Auto) 0.8 L ESR > 120 H Haptoglobin 361 H BUN Glucose 113 H Uric Acid Calcium 8.5 L Iron TIBC Unsat Iron Binding Ferritin AST 57 H ALT 87 H C-Reactive Protein Albumin 2.6 L Globulin Albumin/Globulin Ratio 0.7 L Triglycerides Urine Protein Urine Glucose (UA) Urine Urobilinogen Urine Mucus 02/13/18 02/12/18 02/12/18 04:10 16:50 15:53 RBC 2.80 L Hgb 8.2 L Hct 24.4 L Gran % Lymph % (Auto) 12.1 L Gran # Lymph # (Auto) 0.9 L ESR Haptoglobin BUN Glucose Uric Acid Calcium Iron TIBC Unsat Iron Binding Ferritin AST ALT C-Reactive Protein 14.5 H Albumin Globulin Albumin/Globulin Ratio Triglycerides Urine Protein 100 A Urine Glucose (UA) 50 A Urine Urobilinogen 4.0 A Urine Mucus Many A 02/12/18 02/12/18 02/12/18 15:53 15:23 15:23 RBC 3.30 L Hgb 9.7 L Hct 28.8 L Gran % 82.1 H Lymph % (Auto) 7.7 L Gran # 8.9 H Lymph # (Auto) 0.8 L ESR > 120 H Haptoglobin BUN Glucose Uric Acid Calcium Iron TIBC Unsat Iron Binding Ferritin AST 65 H ALT 99 H C-Reactive Protein Albumin 3.0 L Globulin 4.4 H Albumin/Globulin Ratio 0.7 L Triglycerides Urine Protein Urine Glucose (UA) Urine Urobilinogen Urine Mucus Meds: Medications Acetaminophen (Tylenol) 650 mg PO Q6HP PRN PRN Reason: PAIN/FEVER > 101 Collagenase (Santyl Top Oint) 1 dose TOPICAL DAILY [facility] Last Admin: 02/14/18 09:53 Dose: 1 mg Dextrose (Dextrose 50%) 0 ml IV UD PRN PRN Reason: Hypoglycemia Diagnostic Test (Pha) (Accu-Chek) 1 each FS [facility]S [facility] Last Admin: 02/15/18 12:07 Dose: 1 each Glucose (Insta-Glucose) 15 gm PO PRN PRN PRN Reason: Hypoglycemia Heparin Sodium (Porcine) (Heparin) 5,000 unit SQ Q12 [facility] Last Admin: 02/15/18 08:03 Dose: 5,000 unit Heparin Sodium (Porcine) (Heparin Flush) 2 ml IV Q12 [facility] Piperacillin Sod/Tazobactam (Sod 3.375 gm/ Dextrose) 50 mls @ 100 mls/hr IV Q6H [facility] Last Admin: 02/15/18 12:09 Dose: 100 mls/hr Vancomycin HCl 1,000 mg/ (Sodium Chloride) 250 mls @ 100 mls/hr IV Q12H [facility] Last Admin: 02/15/18 09:18 Dose: 100 mls/hr Insulin Glargine (Lantus) 50 unit SQ HS [facility] Last Admin: 02/14/18 21:21 Dose: 50 unit Insulin Human Lispro (Humalog) 10 unit SQ AC [facility] Last Admin: 02/15/18 12:28 Dose: 10 unit Insulin Human Lispro (Humalog) 0 unit SQ ACHS [facility] PRN Reason: Protocol Magnesium Hydroxide (Milk Of Magnesia) 30 ml PO DAILYP PRN PRN Reason: Constipation Naloxone HCl (Narcan) 0.1 mg IV Q2MIN PRN PRN Reason: Opiate Reversal Ondansetron HCl (Zofran) 4 mg IV Q6HP PRN PRN Reason: Nausea And Vomiting Oxycodone HCl (Roxicodone) 5 mg PO Q4HP PRN PRN Reason: Pain Sodium Chloride (Saline Flush) 10 ml IV Q8 [facility] Last Admin: 02/15/18 06:00 Dose: 10 ml Sodium Chloride (Saline Flush) 10 ml IV UD PRN PRN Reason: FLUSH Sodium Chloride (Saline Flush) 10 ml IV Q12 [facility] Vancomycin HCl (Vancomycin Per Pharmacy) 1 order IV UD [facility] Medical - PN: A/P - Time Spent With Patient Total time spent is greater than 50% in coordination of care (as documented) at patient's floor/unit and/or counseling patient: - Narrative A/P Narrative: A/P Infected Diabetic Wound/ Calcaneal Osteomyelitis: s/p debridement of OM by dr deluna. c ontinue antibiotics. await sensitivities. DM: Glucose, uncontrolled, patient takes 15 units of Humalog plus sliding scale before each meal. Start the patient on 10 units of Humalog plus sliding- scale insulin for now continue Lantus at 50 units. Monitor glucose and adjust as needed. Shortness of breath-patient chest exam is clear, he is not hypoxic, and has been evaluated for same by his PCP. And thinks that this is related to his medication. Patient respiratory distress. Chest x-ray is negative. Monitor for now. Anemia: Hb dropped, no e/o bleed, monitor, for now, transfuse as necessary. Likely anemia of chronic disease, workup suggestive of same. Hypertension-resume home dose of medication BP stable Lipidemia-resume statin The prophylaxis-heparin subcutaneous Diabetic diet Wishes to be full code Get a PICC line for antibiotic use. Medical - PN: Qual - VTE Deep Vein Thrombosis/Pulmonary Embolism Present on Admission: No
[2018-02-15] MEDS: COLLAGENASE TOP OINT TUBE 30GM TOPICAL SCH (18:33)
[2018-02-15] MEDS: INSULIN GLARGINE, HUMAN 1 UNIT/0.01 ML SQ SCH (21:00)
[2018-02-16] MEDS: PIPERACILLIN SODIUM/TAZOBACTAM 3.375 GM in DEXTROSE 5% IN WATER 50 ML IV SCH ×4 (00:01→18:09)
[2018-02-16 05:43] LABS: Basophils # (Auto) 0 K/mcL (0.0-0.3); Basophils % (Auto) 0.5 % (0.0-2.0); Eosinophils # (Auto) 0.1 K/mcL (0.0-0.7); Eosinophils % (Auto) 1.8 % (0.0-7.0); Granulocytes % (Auto) 77.1 % (38.0-78.0); Lymphocytes # (Auto) 1.3 K/mcL (1.5-4.8); Lymphocytes % (Auto) 16.3 % (15.5-49.0); Mean Cell Volume 87.6 fL (80.0-100.0); Mean Corpuscular HGB Conc 33.5 g/dL (31.0-36.0); Mean Corpuscular Hemoglobin 29.3 pg (26.0-34.0); Monocytes # (Auto) 0.4 K/mcL (0.1-0.9); Monocytes % (Auto) 4.3 % (1.0-12.0); Platelet Count 215 K/mcL (140-440); RBC 2.71 M/mcL (4.50-5.90); Red Cell Distribution Width 14.8 % (11.5-14.5)
[2018-02-16] MEDS: 0.9 % SODIUM CHLORIDE 10 ML SYRINGE IV SCH ×5 (05:56→21:06)
[2018-02-16 06:09] LABS: ALT/SGPT 87 U/l (0-40); Albumin 2.8 gm/dL (3.2-5.2); Albumin/Globulin Ratio 0.8 (1.0-2.3); Alkaline Phosphatase 82 U/L (39-117); Bilirubin,Direct < 0.2 mg/dL (0.0-0.3); Blood Urea Nitrogen 24 mg/dl (8-23); Gamma Glutamyl Transpeptidase 42 U/L (8-61); Uric Acid 2.8 mg/dL (2.5-8.0)
[2018-02-16] MEDS: INSULIN LISPRO 1 UNIT/0.01 ML UNIT SQ SCH ×7 (07:26→21:06)
[2018-02-16] MEDS: HEPARIN 5,000 UNIT/ML VIAL SQ SCH ×2 (08:38→21:05)
[2018-02-16] MEDS: VANCOMYCIN 1,000 MG in 0.9 % SODIUM CHLORIDE 250 ML IV SCH ×2 (08:38→21:05)
--- NOTE | 2018-02-16 09:13 | XRay Report ---
HISTORY: Reason for Exam:PICC PLACEMENT FINDINGS: There is a PICC line placed through the left arm with the tip in the superior vena cava. No pneumothorax, pleural effusion or widening of the mediastinum are present. The lungs are clear. The heart size is normal. IMPRESSION: No complication following insertion of a PICC line Nursing was called with the results Interpreted and Authenticated by: Adeel Wei 02/16/18
--- NOTE | 2018-02-16 10:17 | Internal Med Progress Note ---
Medical - PN: Subj Patient information: Note initiated : 02/16/18 at 10:15 am Service Date, if different from initiated Date: [] Patient: Prince Yan a 63 y/o M admitted on 02/12/18 for Debridement of Right Heal, Excision of Bone Spur. Chief Complaint: [] Interval history: Mr. Yan is a 63 year old Male with history of diabetes chronic wound on the right lower extremity recently discharged from this hospital on 10 February. The patient was admitted on 06 February recently admitted to the hospital diagnosis of severe sepsis, bacteremia due to strep algactae, secondary to infected right foot. The patient was treated with antibiotics and he had responded well to treatment. He was discharged on the home with oral antibiotics Augmentin and clindamycin. Patient notes that he takes both medications twice a day. Has not missed his dose. The patient notes that since the time of discharge his condition is slowly worsened. He is tired more fatigued. He also has some shortness of breath that has been going on for 2-3 weeks. He attributes his shortness of breath to chronic cough associated with lisinopril. The patient notes that since yesterday the erythema in his leg has worsened and has been spreading quickly. It had nearly resolved at the time of discharge. Was seen in the wound care clinic and was advised to come back to the emergency room for evaluation and admission. The ER he was sitting comfortably in bed, hemodynamically stable, just had finished a sandwich. Family by the bedside. Patient had no acute complaints or concerns. Labs reviewed patient has normal WBC count and stable chemistries. X-ray was reported as no acute abnormality. She is being admitted to the hospital for management of diabetic wound and cellulitis failed outpatient treatment. 02/13 Patient seen and examined, no acute overnight events. WBC count is normal labs stable ESR is high CRP is high. MRI is still pending. Wound care physician was concerned about possible poor blood supply. Will order CT angios the right lower extremity also. Continue vancomycin and Zosyn for now. There is improvement in the patient's erythema surrounding the wound today. 02/14 Pt seen examined, no acute overnight issues, toleraing po well s/p surgery this afternoon. infected material debrided await microbiology, continue broad spectrum abx for now consider ertapenum and vanco at discharge for another 2 weeks, if no pseudomonas noted. 02/15 Patient seen and examined, no acute overnight events. Some discomfort in the site of surgery otherwise no issues. Cultures growing gram-positive cocci in pairs and chains. Isolation pending. Continue vancomycin and Zosyn for now. Review plan of care with podiatry Get PICC line 02/16 Patient seen and examined no acute overnight events lying comfortably in bed. Encouraged use of incentive spirometry as patient had mild bibasilar crackles. Patient was able to do up to 1000 mL only. Continue broad-spectrum antibiotics for now Microbiology is still pending. Pertinent ROS: Denies headache, dizziness Denies chest pain, palpitations Denies cough or shortness of breath Denies abdominal pain, nausea or vomiting. - Constitutional Vitals: Vital Signs Temp Pulse Resp BP Pulse Ox 98.3 F 85 16 121/75 97 02/16/18 07:21 02/16/18 04:00 02/16/18 07:21 02/16/18 07:21 02/16/18 07:21 Period Temp Pulse Resp BP Sys/Ndiaye Pulse Ox Last 24 Hr 98.3 F-99.3 F 85-90 16-16 107-131/67-82 94-98 Intake and Output 02/15/18 02/16/18 02/16/18 21:59 05:59 13:59 Intake Total 530 / 530 500 / 500 50 / 50 Output Total 700 / 700 950 / 950 Balance -170 / -170 -450 / -450 50 / 50 Weight 166 lb 8 oz Intake & Output: Intake & Output 02/15/18 02/16/18 02/16/18 21:59 05:59 13:59 Intake Total 530 / 530 500 / 500 50 / 50 Output Total 700 / 700 950 / 950 Balance -170 / -170 -450 / -450 50 / 50 Weight 166 lb 8 oz Intake: IV 50 / 50 300 / 300 50 / 50 Zosyn 3.375 gm In Dextrose 5% 50 / 50 50 / 50 50 / 50 in Water 50 ml @ 100 mls/hr IV Q6H [facility] Rx#:[id number] Vancomycin 1,000 mg In Sodium 250 / 250 Chloride 0.9% 250 ml @ 100 mls/ hr IV Q12H [facility] Rx#:[id number] Oral 480 / 480 200 / 200 Output: Void Amount 700 / 700 950 / 950 Other: Meal Dinner serbert ice cream Percent of Meal Consumed 100% 100% Feeding Ability Independent Assist with Tray Set Up # Voids 1 Exam: Constitutional; Afebrile, cooperative, alert, not in distress. Eyes- No icterus, , No periorbital swelling Ears- Ext ear normal, hearing normal to conversation. Neck- Midline trachea, supple Respiratory system: Air Entry equal on both sides, No crackles or wheezing, no rhonchi. CVS- Rate rhythm regular, S1,S2 heard, no gallop, no rub. 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 Medical - PN: Obj Da - Labs CBC & Chem 7: 02/16/18 04:00 02/16/18 04:00 Labs: Abnormal Lab Results 02/16/18 02/16/18 02/15/18 04:00 04:00 04:20 RBC 2.71 L Hgb 7.9 L Hct 23.7 L RDW 14.8 H Gran % Lymph % (Auto) Lymph # (Auto) 1.3 L ESR Haptoglobin BUN 24 H 24 H Glucose 113 H 210 H Uric Acid Calcium 8.3 L Iron TIBC Unsat Iron Binding Ferritin AST 58 H ALT 87 H 69 H C-Reactive Protein Albumin 2.8 L 2.5 L Globulin Albumin/Globulin Ratio 0.8 L 0.7 L Triglycerides 187 H 02/15/18 02/14/18 02/14/18 04:20 04:25 04:25 RBC 2.63 L 2.82 L Hgb 7.6 L 8.2 L Hct 22.8 L 24.6 L RDW Gran % 83.8 H Lymph % (Auto) 9.2 L 13.0 L Lymph # (Auto) 0.8 L 0.8 L ESR > 120 H Haptoglobin BUN Glucose 195 H Uric Acid 2.4 L Calcium Iron 35 L TIBC 120 L Unsat Iron Binding 85 L Ferritin 917.0 H AST 49 H ALT 83 H C-Reactive Protein 7.8 H Albumin 2.6 L Globulin 3.8 H Albumin/Globulin Ratio 0.7 L Triglycerides 153 H 02/13/18 16:08 RBC Hgb Hct RDW Gran % Lymph % (Auto) Lymph # (Auto) ESR Haptoglobin 361 H BUN Glucose Uric Acid Calcium Iron TIBC Unsat Iron Binding Ferritin AST ALT C-Reactive Protein Albumin Globulin Albumin/Globulin Ratio Triglycerides Meds: Medications Acetaminophen (Tylenol) 650 mg PO Q6HP PRN PRN Reason: PAIN/FEVER > 101 Collagenase (Santyl Top Oint) 1 dose TOPICAL DAILY [facility] Last Admin: 02/15/18 18:33 Dose: Not Given Dextrose (Dextrose 50%) 0 ml IV UD PRN PRN Reason: Hypoglycemia Diagnostic Test (Pha) (Accu-Chek) 1 each FS [facility] Last Admin: 02/16/18 07:26 Dose: 1 each Glucose (Insta-Glucose) 15 gm PO PRN PRN PRN Reason: Hypoglycemia Heparin Sodium (Porcine) (Heparin) 5,000 unit SQ Q12 [facility] Last Admin: 02/16/18 08:38 Dose: 5,000 unit Heparin Sodium (Porcine) (Heparin Flush) 2 ml IV Q12 [facility] Last Admin: 02/16/18 08:42 Dose: 2 ml Piperacillin Sod/Tazobactam (Sod 3.375 gm/ Dextrose) 50 mls @ 100 mls/hr IV Q6H [facility] Last Infusion: 02/16/18 06:30 Dose: Infused Vancomycin HCl 1,000 mg/ (Sodium Chloride) 250 mls @ 100 mls/hr IV Q12H [facility] Last Admin: 02/16/18 08:38 Dose: 100 mls/hr Insulin Glargine (Lantus) 50 unit SQ [facility] Last Admin: 02/15/18 21:00 Dose: 50 unit Insulin Human Lispro (Humalog) 10 unit SQ AC [facility] Last Admin: 02/16/18 07:29 Dose: 10 unit Insulin Human Lispro (Humalog) 0 unit SQ [facility] PRN Reason: Protocol Last Admin: 02/16/18 07:26 Dose: Not Given Magnesium Hydroxide (Milk Of Magnesia) 30 ml PO DAILYP PRN PRN Reason: Constipation Naloxone HCl (Narcan) 0.1 mg IV Q2MIN PRN PRN Reason: Opiate Reversal Ondansetron HCl (Zofran) 4 mg IV Q6HP PRN PRN Reason: Nausea And Vomiting Oxycodone HCl (Roxicodone) 5 mg PO Q4HP PRN PRN Reason: Pain Sodium Chloride (Saline Flush) 10 ml IV Q8 [facility] Last Admin: 02/16/18 05:56 Dose: 10 ml Sodium Chloride (Saline Flush) 10 ml IV UD PRN PRN Reason: FLUSH Sodium Chloride (Saline Flush) 10 ml IV Q12 [facility] Last Admin: 02/16/18 08:43 Dose: 10 ml Vancomycin HCl (Vancomycin Per Pharmacy) 1 order IV [facility] [place] Medical - PN: A/P - Time Spent With Patient Total time spent is greater than 50% in coordination of care (as documented) at patient's floor/unit and/or counseling patient: - Narrative A/P Narrative: A/P Infected Diabetic Wound/ Calcaneal Osteomyelitis: s/p debridement of OM by dr deluna. c ontinue antibiotics. await sensitivities. DM: Glucose much better controlled on present regime, continue same, 10 units AC humalong plus sliding scale, and 50 lantus qhs . Shortness of breath-patient chest exam is clear, he is not hypoxic, and has been evaluated for same by his PCP. And thinks that this is related to his medication. Patient respiratory distress. Chest x-ray is negative. Monitor for now. Anemia: Hb dropped, no e/o bleed, monitor, for now, transfuse as necessary. Likely anemia of chronic disease, workup suggestive of same. Hypertension-resume home dose of medication BP stable Lipidemia-resume statin The prophylaxis-heparin subcutaneous Diabetic diet Wishes to be full code Get a PICC line for antibiotic use. Anticipate d/c tomorrow after sensitivites back Medical - PN: Qual - VTE Deep Vein Thrombosis/Pulmonary Embolism Present on Admission: No
[2018-02-16] MEDS: COLLAGENASE TOP OINT TUBE 30GM TOPICAL SCH (18:57)
[2018-02-16] MEDS: INSULIN GLARGINE, HUMAN 1 UNIT/0.01 ML SQ SCH (21:05)
[2018-02-17] MEDS: PIPERACILLIN SODIUM/TAZOBACTAM 3.375 GM in DEXTROSE 5% IN WATER 50 ML IV SCH ×2 (00:05→05:40)
[2018-02-17] MEDS: 0.9 % SODIUM CHLORIDE 10 ML SYRINGE IV SCH ×3 (05:40→10:43)
[2018-02-17] MEDS: INSULIN LISPRO 1 UNIT/0.01 ML UNIT SQ SCH ×4 (07:34→11:43)
[2018-02-17 08:14] LABS: ALT/SGPT 65 U/l (0-40); Albumin 2.8 gm/dL (3.2-5.2); Albumin/Globulin Ratio 0.8 (1.0-2.3); Alkaline Phosphatase 75 U/L (39-117); Basophils # (Auto) 0 K/mcL (0.0-0.3); Basophils % (Auto) 0.4 % (0.0-2.0); Bilirubin,Direct < 0.2 mg/dL (0.0-0.3); Blood Urea Nitrogen 20 mg/dl (8-23); C-Reactive Protein 2.4 mg/dl (0.0-0.8); Eosinophils # (Auto) 0.3 K/mcL (0.0-0.7); Eosinophils % (Auto) 3.2 % (0.0-7.0); Gamma Glutamyl Transpeptidase 42 U/L (8-61); Granulocytes % (Auto) 77.1 % (38.0-78.0); Lymphocytes # (Auto) 1.1 K/mcL (1.5-4.8); Lymphocytes % (Auto) 13.9 % (15.5-49.0); Mean Cell Volume 88.3 fL (80.0-100.0); Mean Corpuscular HGB Conc 32.5 g/dL (31.0-36.0); Mean Corpuscular Hemoglobin 28.7 pg (26.0-34.0); Monocytes # (Auto) 0.4 K/mcL (0.1-0.9); Monocytes % (Auto) 5.4 % (1.0-12.0); Platelet Count 221 K/mcL (140-440); RBC 2.73 M/mcL (4.50-5.90); Red Cell Distribution Width 14.5 % (11.5-14.5)
[2018-02-17] MEDS: HEPARIN 5,000 UNIT/ML VIAL SQ SCH (09:15)
[2018-02-17] MEDS: COLLAGENASE TOP OINT TUBE 30GM TOPICAL SCH (09:30)
[2018-02-17] MEDS: VANCOMYCIN 1,000 MG in 0.9 % SODIUM CHLORIDE 250 ML IV SCH (09:30)
[2018-02-17 09:41] LABS: Erythrocyte Sedimentation Rate > 120 mm/hr (0-15)
--- NOTE | 2018-02-17 09:44 | Discharge Summary ---
Medical - DS: Prov Patient information: Note initiated : 02/17/18 at 9:41 am Service Date, if different from initiated Date: [] Patient: Prince Yan 63 y/o M admitted on 02/12/18 for Debridement of Right Heal, Excision of Bone Spur. Chief Complaint: [] Date of admission: 02/12/18 19:08 Discharge date: 02/17/18 Primary care physician: Mahamed Huggins Admitting clinician: Shelia Garcia Consults: 02/12/18 17:53 Consult to Physician [CONS] Stat Comment: Consulting Provider: Shelia Garcia Reason For Exam: Physician to Consult 02/12/18 19:07 Consult to Physician [CONS] Stat Comment: Consulting Provider: Ella Mccormack Reason For Exam: Physician to Consult 02/13/18 18:43 Consult to Physician [CONS] Routine Comment: Consulting Provider: Fabio Brown Reason For Exam: Physician to Consult Discharging clinician: Shelia Garcia Medical - DS: Meds - Discharge Medications Prescriptions: Ertapenem [Invanz] 1 gm IV Q24H #10 vial Active and Home Medications: Home Medications aspirin 81 mg tablet,delayed release 81 mg PO QDAY tab 04/07/15 [History Confirmed 02/12/18 Last Taken 02/12/18 09:00] atorvastatin 20 mg tablet 20 mg PO QDAY #90 tab 01/13/18 [Rx Confirmed 02/12/18 Last Taken 02/12/18 09:00] lisinopril 20 mg-hydrochlorothiazide 12.5 mg tablet 20 mg PO QDAY 02/03/18 [ History Confirmed 02/12/18 Last Taken 02/12/18 09:00] Blood Sugar Diagnostic [Contour] 0 b .ROUTE .MEDSUPPLY 02/06/18 [History Confirmed 02/12/18 Last Taken Unknown] Pen Needle, Diabetic [Incontrol Pen Needle] 0 b .ROUTE .MEDSUPPLY 02/06/18 [ History Confirmed 02/12/18 Last Taken 02/12/18 09:00] Amoxicillin/Potassium Clav [Augmentin] 875 mg PO Q12H #20 tab 02/10/18 [Rx Confirmed 02/12/18 Last Taken 02/12/18 09:00] Ascorbic Acid [Vitamin C] 500 mg PO BID #60 tab 02/10/18 [Rx Confirmed 02/12/18 Last Taken 02/12/18 09:00] Bacitracin 25,000 unit IRR Q24H #1 vial 02/10/18 [Rx Confirmed 02/12/18 Last Taken 02/11/18 21:00] Clindamycin HCl [Cleocin] 300 mg PO BID #20 cap 02/10/18 [Rx Confirmed 02/12/18 Last Taken 02/12/18 09:00] Insulin Glargine,Hum.rec.anlog [Tougerardoo Solostar] 48 unit SUB-Q QHS #6 ml [Rx Confirmed 02/12/18 Last Taken 02/11/18 22:00] Insulin Lispro [Humalog] 15 unit SQ TIDAC unit 02/10/18 [Rx Confirmed 02/12/18 Last Taken 02/12/18 09:00] Fluticasone Furoate [Arnuity Ellipta] 1 puff IH DAILY 02/12/18 [History Confirmed 02/12/18 Last Taken 02/12/18 12:30] benzonatate 200 mg capsule 200 mg PO TID PRN #10 cap 02/12/18 [Rx Confirmed 12/01 Last Taken Unknown] Medical - DS: Hosp Hospital course: Mr. Yan is a 63 year old Male with history of diabetes chronic wound on the right lower extremity recently discharged from this hospital on 10 February. The patient was admitted on 06 February recently admitted to the hospital diagnosis of severe sepsis, bacteremia due to strep algactae, secondary to infected right foot. The patient was treated with antibiotics and he had responded well to treatment. He was discharged on the home with oral antibiotics Augmentin and clindamycin. Patient notes that he takes both medications twice a day. Has not missed his dose. The patient notes that since the time of discharge his condition is slowly worsened. He is tired more fatigued. He also has some shortness of breath that has been going on for 2-3 weeks. He attributes his shortness of breath to chronic cough associated with lisinopril. The patient notes that since yesterday the erythema in his leg has worsened and has been spreading quickly. It had nearly resolved at the time of discharge. Was seen in the wound care clinic and was advised to come back to the emergency room for evaluation and admission. The ER he was sitting comfortably in bed, hemodynamically stable, just had finished a sandwich. Family by the bedside. Patient had no acute complaints or concerns. Labs reviewed patient has normal WBC count and stable chemistries. X-ray was reported as no acute abnormality. She is being admitted to the hospital for management of diabetic wound and cellulitis failed outpatient treatment. 02/13 Patient seen and examined, no acute overnight events. WBC count is normal labs stable ESR is high CRP is high. MRI is still pending. Wound care physician was concerned about possible poor blood supply. Will order CT angios the right lower extremity also. Continue vancomycin and Zosyn for now. There is improvement in the patient's erythema surrounding the wound today. 02/14 Pt seen examined, no acute overnight issues, toleraing po well s/p surgery this afternoon. infected material debrided await microbiology, continue broad spectrum abx for now consider ertapenum and vanco at discharge for another 2 weeks, if no pseudomonas noted. 02/15 Patient seen and examined, no acute overnight events. Some discomfort in the site of surgery otherwise no issues. Cultures growing gram-positive cocci in pairs and chains. Isolation pending. Continue vancomycin and Zosyn for now. Review plan of care with podiatry Get PICC line 02/16 Patient seen and examined no acute overnight events lying comfortably in bed. Encouraged use of incentive spirometry as patient had mild bibasilar crackles. Patient was able to do up to 1000 mL only. Continue broad-spectrum antibiotics for now Microbiology is still pending. 02/18 Pt seen examined, no acute issues, Dr Infante to change dressing today, evaluate pt in clinic in 1-2 days, microbiology is back, same organism as before, strep. plan to use ertapenum x 10 more days, as DM wounds are often polymicrobial and anaerobes are not easily identified no mrsa or pseudomonas noted. A/P Infected Diabetic Wound/ Calcaneal Osteomyelitis: s/p debridement of of osteomyelitis, Cellutlitis much improved. All infected bone removed. Therefore pt would just need total 14 days of ABX, will use ertanepum x 10 more days, DM on insulin, resume home regime at discharge. Shortness of breath-patient chest exam is clear, he is not hypoxic, and has been evaluated for same by his PCP. And thinks that this is related to his medication. Patient respiratory distress. Chest x-ray is negative. Monitor for now. Anemia: Hb dropped, no e/o bleed, monitor, for now, transfuse as necessary. Likely anemia of chronic disease, workup suggestive of same. Hypertension-resume home meds at dischage, no changes Lipidemia-continue statin Discharge diagnosis: Osteomyelitis/ Cellutlitis of right lower extremity - Time Spent with Patient Total time spent providing and/or coordinating discharge services: Greater than 30 minutes Medical - DS: Exam - Constitutional Vitals: Vital Signs Temp Pulse Resp BP BP Pulse Ox 02/17/18 06:24 98.5 F 16 126/74 97 02/17/18 04:00 98.7 F 85 16 131/76 97 02/17/18 00:00 98.0 F 93 H 22 123/61 96 02/16/18 20:00 98.0 F 95 H 24 H 124/74 97 02/16/18 15:54 98.6 F 16 133/76 97 02/16/18 12:00 98.4 F 16 125/77 94 Intake and Output 02/16/18 02/17/18 02/17/18 21:59 05:59 13:59 Intake Total 450 / 450 300 / 300 Output Total 1025 / 1025 Balance 450 / 450 -725 / -725 Intake: IV 50 / 50 300 / 300 Zosyn 3.375 gm In Dextrose 5% 50 / 50 50 / 50 in Water 50 ml @ 100 mls/hr IV Q6H [facility] Rx#:[id number] Vancomycin 1,000 mg In Sodium 250 / 250 Chloride 0.9% 250 ml @ 100 mls/ hr IV Q12H [facility] Rx#:[id number] Oral 0 / 0 GI Tube Flush 400 / 400 Output: Void Amount 1025 / 1025 Other: Meal Jello Percent of Meal Consumed 100% Feeding Ability Independent # Voids 2 1 Weight 164 lb 8 oz Additional comments: Constitutional; Afebrile, cooperative, alert, not in distress. Eyes- No icterus, , No periorbital swelling Ears- Ext ear normal, hearing normal to conversation. Neck- Midline trachea, supple Respiratory system: Air Entry equal on both sides, No crackles or wheezing, no rhonchi. CVS- Rate rhythm regular, S1,S2 heard, no gallop, no rub. 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 Medical - DS: Data Labs on day of discharge: Labs from last 24 hours 02/17/18 02/17/18 04:00 04:00 WBC 7.9 RBC 2.73 L Hgb 7.8 L Hct 24.1 L MCV 88.3 MCH 28.7 MCHC 32.5 RDW 14.5 Plt Count 221 MPV 8.7 Gran % 77.1 Lymph % (Auto) 13.9 L [place] % (Auto) 5.4 Eos % (Auto) 3.2 Baso % (Auto) 0.4 Gran # 6.1 Lymph # (Auto) 1.1 L [place] # (Auto) 0.4 Eos # (Auto) 0.3 Baso # (Auto) 0 ESR Pending Sodium 141 Potassium 4.0 Chloride 104 Carbon Dioxide 25 Anion Gap 12.0 BUN 20 Creatinine 0.9 GFR Calculation 91 Glucose 97 Uric Acid 3.0 Calcium 8.5 L Phosphorus 3.5 Magnesium 2.2 Total Bilirubin 0.4 Direct Bilirubin < 0.2 GGT 42 AST 30 ALT 65 H Alkaline Phosphatase 75 Lactate Dehydrogenase 205 C-Reactive Protein 2.4 H Total Protein 6.4 Albumin 2.8 L Globulin 3.6 Albumin/Globulin Ratio 0.8 L Triglycerides 192 H Preliminary micro results at discharge 02/12/18 18:28 Blood Culture - Preliminary Blood 02/12/18 18:24 Blood Culture - Preliminary Blood 02/14/18 14:57 Anaerobic Culture - Preliminary Foot - Right Medical - DS: A/P - Patient/Caregiver Discharge Instructions Activity: increase activity as tolerated (Do not bear weight on the right leg. ) Diet: Consistent Carbohydrate Additional Instructions: Do not bear weight on the right leg. Take IV antibiotics for 10 more days PICC line care per protocol, d/c picc line after last dose of antibiotic follow up with Dr Brown in 2 days in his clinic, he will decide further dressing changes and wound care for you. Go to the ER if worsening symptoms, chest pain, shortness of breath or any other concerning symptom. - Follow up Plan Follow up with: Mahamed Huggins PA-C [Primary Care Provider] - Fabio Brown DPM [Physician] - Disposition: Home, Self-Care Prognosis: Fair Rehab Potential: Fair I certify that the patient requires SNF services: No Overall status at discharge: patient is progressing back to baseline Medical - DS: Qual - VTE Deep Vein Thrombosis/Pulmonary Embolism Present on Admission: No
[2018-02-17] MEDS ORDERED: ERTAPENEM 1 GM in 0.9 % SODIUM CHLORIDE 50 ML IV SCH (10:00)
--- NOTE | 2018-02-17 13:09 | Surgical Pathology Report ---
HISTOLOGY SPECIMEN MICROSCOPIC DIAGNOSIS BONE, RIGHT CALCANEUS, BIOPSY: -- ACUTE AND CHRONIC OSTEOMYELITIS. (DMT:sln) PROCEDURAL IMPRESSION Osteomyelitis of right calcaneous. GROSS DESCRIPTION Received in formalin, labeled right calcaneus, is a 3.7 x 2.2 x 0.5 cm fragment of hemorrhagic bone. The bone is partially softened. Structural Ironworker sections are submitted in two cassettes following decalcification. (DMT:adj) Electronically Signed by: Chino Serrano M.D.
== END 2018-02-17 12:15 | disposition home or self-care (01) | DRG 988 ==
LOC: ED 14:42 → MEDSUR 19:08
PROVIDERS: ADMIT Internal Medicine; ATTEND Internal Medicine

== ENCOUNTER 2018-07-14 18:15 | Inpatient (IN) ==
[2018-07-14] MEDS ORDERED: 0.9 % SODIUM CHLORIDE 1,000 ML IV ONE ×2 (18:17→19:50)
[2018-07-14] MEDS ORDERED: ONDANSETRON 4 MG/2 ML VIAL IV ONE (18:46)
--- NOTE | 2018-07-14 19:27 | Ultrasound Report ---
CLINICAL INFORMATION: severe mid abd pain, r/o AAA COMPARISON: None. FINDINGS: Unfortunately most of the abdominal aorta was not visualized due to patient body habitus and bowel gas. The suprarenal segment is 2.3 cm. Right common iliac artery is 1.2 cm. The left common iliac artery is not visualized IMPRESSION: Nonvisualization of most of the abdominal aorta - please see above. Suggest: abdomen and pelvic CT with contrast Interpreted and Authenticated by: Russel Leahy 07/14/18
[2018-07-14 19:57] LABS: Basophils # (Auto) 0 K/mcL (0.0-0.3); Basophils % (Auto) 0.3 % (0.0-2.0); Eosinophils # (Auto) 0.2 K/mcL (0.0-0.7); Eosinophils % (Auto) 2.7 % (0.0-7.0); Granulocytes % (Auto) 77.1 % (38.0-78.0); Lymphocytes # (Auto) 0.8 K/mcL (1.5-4.8); Lymphocytes % (Auto) 14.3 % (15.5-49.0); Mean Cell Volume 85.1 fL (80.0-100.0); Mean Corpuscular HGB Conc 33.1 g/dL (31.0-36.0); Mean Corpuscular Hemoglobin 28.2 pg (26.0-34.0); Monocytes # (Auto) 0.3 K/mcL (0.1-0.9); Monocytes % (Auto) 5.6 % (1.0-12.0); Platelet Count 167 K/mcL (140-440); RBC 3.05 M/mcL (4.50-5.90); Red Cell Distribution Width 17.2 % (11.5-14.5)
[2018-07-14 20:10] LABS: ALT/SGPT 18 U/l (0-40); Albumin 3.2 gm/dL (3.2-5.2); Albumin/Globulin Ratio 0.9 (1.0-2.3); Alkaline Phosphatase 55 U/L (39-117); Amylase 28 U/L (28-100); Blood Urea Nitrogen 44 mg/dl (8-23); Lipase 15 U/L (7-60)
--- NOTE | 2018-07-14 20:11 | Emergency Department Note ---
Abdominal Pain HPI - General Chief Complaint: Abdominal Pain Stated Complaint: Abdominal pain Time Seen by Provider: 07/14/18 18:17 Source: patient, EMS Mode of arrival: EMS Limitations: no limitations - History of Present Illness HPI Narrative: 63-year-old male presents with severe weakness and abdominal pain. He has been going to outpatient for IV antibiotic therapy for a chronic right foot wound. States it was getting worse over the last week or so so he was doing antibiotics. Family states his right foot is more swollen than it was yesterday. Patient reports he started having upper abdominal pain on Saturday and its been fairly mild just now again until about 3 hours prior to arrival. He had more severe onset of abdominal pain that is constant. States he cannot even touch his abdomen. He is also pale and diaphoretic on arrival. Feels very weak, much more so the last couple hours since this abdominal pain started. Has never had anything like this in the past. No chest pain or difficulty breathing. No blood in the stools. Last bowel movement was yesterday and was normal. - Related Data Home Medications Medication Instructions Recorded Confirmed aspirin 81 mg tablet,delayed 81 mg PO QDAY tab 04/07/15 05/29/18 release lisinopril 20 20 mg PO QDAY 02/03/18 05/29/18 mg-hydrochlorothiazide 12.5 mg tablet RX: Pen Needle, Diabetic 0 b .ROUTE .MEDSUPPLY 02/06/18 05/29/18 [Incontrol Pen Needle] RX: Blood Sugar Diagnostic 0 dose .ROUTE .MEDSUPPLY 04/03/18 05/29/18 [Contour] RX: Insulin Glargine,Hum.rec.anlog 50 unit SUB-Q QHS 04/03/18 05/29/18 [[place] De Paz] Clopidogrel Bisulfate [Plavix] 75 mg PO DAILY 04/04/18 05/29/18 Pantoprazole [Protonix] 40 mg PO QAMAC 04/04/18 05/29/18 insulin lispro (U-100) 100 unit/mL See Label Instructions SUB-Q 05/29/18 subcutaneous pen .COMPLEX ml Previous Rx's Medication Instructions Recorded atorvastatin 20 mg tablet 20 mg PO QDAY #90 tab 05/12/18 blood sugar diagnostic strips See Dose Instructions .ROUTE 05/12/18 .MEDSUPPLY #100 each Allergies Allergy/AdvReac Type Severity Reaction Status Date / Time No Known Drug Allergies Allergy Verified 05/29/18 12:52 Review of Systems All systems ED: reviewed and negative except as stated. 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) Diabetic peripheral neuropathy (Chronic) Diabetic neuropathy (Chronic) Pain in left hip (Chronic) Pain in joint, pelvic region and thigh (Chronic) Corneal abrasion (Chronic) Foot ulcer (Chronic) Ulcer of lower limbs, except pressure ulcer (Chronic) Tremor, essential (Chronic) Peripheral neuropathy (Chronic) Osteomyelitis (Resolved) History of noncompliance with medical treatment (Chronic) Microalbuminuria (Chronic) Hypertension, essential (Chronic) Hyperlipidemia (Chronic) DM (diabetes mellitus), type 2, uncontrolled (Chronic) DM type 2 (diabetes mellitus, type 2) (Chronic) 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) Past Surgical History (Last Updated 05/29/18 @ 12:52 by Yoly Saleem CMA) History of surgery (Chronic) History of foot surgery (Chronic) History of foot surgery (Chronic) History of colonoscopy (Chronic 10/15/07) Hx of cataract surgery (Chronic) Surgical operation with anastomosis, bypass or graft as the cause of abnormal reaction of the patient, or of later complication, without mention of misadventure at the time of the procedure (Chronic) Medical history: Reports: DM (With associated neuropathy), hyperlipidemia, other (Essential tremor, osteomyelitis) - Social History Smoking status: Never smoker Alcohol use: Reports: None Drug use: Reports: none Physical Exam Limitations: no limitations General appearance: in distress, other (Very pale and diaphoretic on arrival) Head: atraumatic, normocephalic, normal inspection Eye: Present: normal appearance. Absent: conjunctival injection ENT: normal exam, normal oropharynx, mucous membranes moist, TM's normal bilaterally, normal external ear exam Neck: Present: normal inspection, trachea midline. Absent: tenderness, lymphadenopathy Neck - focused: Absent: JVD Chest: Present: symmetric chest wall rise Respiratory: Present: normal lung sounds bilaterally. Absent: respiratory distress, rales/crackles, wheezes, stridor, accessory muscle use Cardiovascular: Present: tachycardia (Tachycardic in the 110-120s on arrival) Abdominal: Present: distention (Mild diffuse abdominal distention.), tenderness (Severe upper abdominal tenderness with any light palpation at all), normal bowel sounds. Absent: guarding (Upper abdomen), mass, bruit, pulsatile mass Extremities: Present: other (Right lower leg from mid calf down to the foot with mild edema. Dressing intact to the right foot on arrival. He does have an open wound with a tendon exposed to the right upper foot. There are pictures available in the chart.) Neurological: Present: alert, oriented X3. Absent: motor sensory deficit Skin: Present: intact, other (Pale, cool and diaphoretic on arrival) Course Course Narrative: Ultrasound was only able to get a very limited exam due to severe abdominal tenderness. We did talk with radiology and they would like us to give him a bolus of fluid due to his elevated BUN and creatinine and then we will go ahead and run a CT abdomen pelvis with contrast. After a liter of fluid and some pain medication vital signs have improved including heart rate which is down to 90 and blood pressure 150s over 90s. He is slightly less pale and skin is now dry. @2100 CT report reveals ascites, splenomegaly. I did consult with Dr. Nixon, surgery. He feels this is medical case only and non surgical. @2105 I did speak with Dr. Stapleton, hospitalist who agrees to admit the patient. I did see the patient in conjunction with ER physician Dr. Miller Vital Signs Temperature 97.8 F 07/14/18 18:15 Pulse Rate 104 H 07/14/18 18:15 Respiratory Rate 16 07/14/18 18:15 Pulse Oximetry (%) 98 07/14/18 18:15 Temperature 97.8 F 07/14/18 18:15 Pulse Rate 94 H 07/14/18 20:34 Respiratory Rate 26 H 07/14/18 20:34 Blood Pressure 153/95 07/14/18 20:34 Pulse Oximetry (%) 98 07/14/18 20:34 Abdominal Pain - Lab Data Lab results reviewed: Yes I reviewed the patient's lab results. Result diagrams: 07/14/18 18:40 07/14/18 18:40 Lab Results 1007/14/18 07/14/18 Range/Units 18:40 18:40 18:40 WBC 5.8 (4.5-11.0) K/mcL RBC 3.05 L (4.50-5.90) M/mcL Hgb 8.6 L (13.5-16.5) g/dL Hct 26.0 L (41.0-55.0) % POC Hct 25.0 L (41.0-55.0) % MCV 85.1 (80.0-100.0) fL MCH 28.2 (26.0-34.0) pg MCHC 33.1 (31.0-36.0) g/dL RDW 17.2 H (11.5-14.5) % Plt Count 167 (140-440) K/mcL MPV 9.0 (7.4-10.4) fL Gran % 77.1 (38.0-78.0) % Lymph % (Auto) 14.3 L (15.5-49.0) % [place] % (Auto) 5.6 (1.0-12.0) % Eos % (Auto) 2.7 (0.0-7.0) % Baso % (Auto) 0.3 (0.0-2.0) % Gran # 4.5 (1.8-8.0) K/mcL Lymph # (Auto) 0.8 L (1.5-4.8) K/mcL [place] # (Auto) 0.3 (0.1-0.9) K/mcL Eos # (Auto) 0.2 (0.0-0.7) K/mcL Baso # (Auto) 0 (0.0-0.3) K/mcL VBG Lactic Acid 1.3 (0.5-2.2) mmol/L POC Sodium 145 (133-145) mmol/L Sodium 144 (133-145) mmol/L POC Potassium 4.3 (3.3-5.1) mmol/L Potassium 4.5 (3.3-5.1) mmol/L POC Chloride 112 H (96-108) mmol/L Chloride 111 H (96-108) mmol/L Carbon Dioxide 19 L (22-30) mmol/L POC Total CO2 20 L (22-30) mmol/L Anion Gap 14.0 (8-16) POC BUN 39 H (8-23) mg/dl BUN 44 H (8-23) mg/dl Creatinine 1.7 H (0.7-1.2) mg/dl POC Creatinine 1.6 H (0.7-1.2) mg/dl GFR Calculation 42 Glucose 78 (70-105) mg/dL POC Glucose 78 (70-105) mg/dL Calcium 8.6 (8.6-10.4) mg/dl POC WB Ioniz Calcium 1.19 (1.16-1.32) mmol/L Total Bilirubin 0.3 (0.0-1.0) mg/dL AST 24 (0-37) U/l ALT 18 (0-40) U/l Alkaline Phosphatase 55 (39-117) U/L Total Protein 6.7 (5.9-8.4) gm/dL Albumin 3.2 (3.2-5.2) gm/dL Globulin 3.5 (2.2-3.7) gm/dL Albumin/Globulin Ratio 0.9 L (1.0-2.3) Amylase 28 (28-100) U/L Lipase 15 (7-60) U/L - Radiology Data Radiology results reviewed: Yes I reviewed the patient's radiology results. Disposition Pt seen by HUMAN RESOURCES COMPLIANCE MANAGER/PA only: No Clinical Impression: Sudden onset of severe abdominal pain, Ascites, Bilateral pleural effusion, Anemia, Hypertension, Splenomegaly Disposition: Xfer As Inpt ([facility]) Condition: Serious Referrals: Mahamed Huggins PA-C [Primary Care Provider] - Time of Disposition: 21:16
[2018-07-14] MEDS ORDERED: TRANEXAMIC ACID 1,000 MG/10 ML VIAL IV ONE (20:58)
[2018-07-14] MEDS ORDERED: FUROSEMIDE 40 MG/4 ML VIAL IV SCH (22:46)
--- NOTE | 2018-07-14 22:54 | Internal Med History&Physical ---
Medical - H&P: HPI Patient information: Note initiated : 07/14/18 at 10:52 pm Service Date, if different from initiated Date: [] Patient: Prince Yan a 63 y/o M admitted on for Abdominal pain. Chief Complaint: [Abdominal pain and difficulty breathing History of present illness: Mr. Yan is a 63 year old M With abdominal pain starting this afternoon. It culminated at about 6:30 PM was severity making physical exam difficult. Ultrasound could not be done without unusual pain and so he underwent CT scan with contrast excluding abdominal aortic aneurysm. Patient was found to have some ascites and also large bilateral pleural effusions which cleat layer nicely and do not appear loculated. Patient has not had fevers or chills. He does have a chronically ulcerated right dorsal foot and right heel ulcer patient has been seen at the wound clinic with Dr. Hayes Patient denies nausea vomiting he has never had coronary artery disease. He is managed for his cardiac risk factors including diabetes hyperlipidemia and hypertension. - Constitutional Constitutional: Present: weight gain (15 pounds in 4 days) - Cardiovascular Cardiovascular: Present: dyspnea on exertion - Respiratory Respiratory: Present: cough, pain with cough. Absent: hemoptysis - Gastrointestinal Gastrointestinal: Present: abdominal pain. Absent: diarrhea, hematemesis - Neurological Neurological: Present: as per HPI - Endocrine Endocrine: Present: as per HPI - Hematologic/Lymphatic Additional comments: Patient with anemia and he is on Plavix. He has been taking Aleve for the last 4 days Medical - H&P: PMH Medical history: Diabetes, hypertension, hyperlipidemia, chronic diabetic foot ulcers Surgical history: Right foot ulcers debridement Right leg vascular ballooning Functional capacity: independent ambulation Have you smoked in the last 12 months: No Alcohol use: none Medical - H&P: Meds Home Medications Medication Instructions Recorded Confirmed Type aspirin 81 mg tablet,delayed 81 mg PO QDAY tab 04/07/15 05/29/18 History release lisinopril 20 20 mg PO QDAY 02/03/18 05/29/18 History mg-hydrochlorothiazide 12.5 mg tablet Pen Needle, Diabetic [Incontrol 0 b .ROUTE .MEDSUPPLY 02/06/18 05/29/18 History Pen Needle] Blood Sugar Diagnostic [Contour] 0 dose .ROUTE .MEDSUPPLY 04/03/18 05/29/18 History Insulin Glargine,Hum.rec.anlog 50 unit SUB-Q QHS 04/03/18 05/29/18 History [[place] De Paz] Clopidogrel Bisulfate [Plavix] 75 mg PO DAILY 04/04/18 05/29/18 History Pantoprazole [Protonix] 40 mg PO QAMAC 04/04/18 05/29/18 History atorvastatin 20 mg tablet 20 mg PO QDAY #90 tab 05/12/18 05/29/18 Rx blood sugar diagnostic strips See Dose Instructions .ROUTE 05/12/18 05/29/18 Rx .MEDSUPPLY #100 each insulin lispro (U-100) 100 unit/mL See Label Instructions SUB-Q 05/29/18 History subcutaneous pen .COMPLEX ml Allergies Allergy/AdvReac Type Severity Reaction Status Date / Time No Known Drug Allergies Allergy Verified 05/29/18 12:52 Medical - H&P: Exam - Constitutional Vitals: Temp Pulse Resp BP Pulse Ox 97.8 F 88 22 139/84 95 07/14/18 18:15 07/14/18 22:45 07/14/18 22:45 07/14/18 22:45 07/14/18 22:45 General appearance: average body habitus, cooperative, no acute distress - Head Head exam: Present: atraumatic - Neck Neck exam: Present: full ROM, normal inspection. Absent: lymphadenopathy, tenderness, thyromegaly - Respiratory Respiratory exam: Present: decreased breath sounds. Absent: rales, respiratory distress, wheezes Additional comments: Bilateral bases with dullness to percussion from the lower 2/5 of the lung - Cardiovascular Cardiovascular exam: Present: normal rate and rhythm. Absent: systolic murmur - GI/Abdominal GI/Abdominal exam: Present: normal bowel sounds, soft. Absent: tenderness Additional comments: Abdomen is soft and nontender distinctly different from physical exam earlier in the ER prior to morphine - Expanded GI/Abdominal Exam GI/Abdominal exam: Absent: tenderness at McBurney's Point - Rectal Rectal exam: Absent: deferred - Extremities Exam Extremities exam: Present: pedal edema - Psychiatric Psychiatric exam: Present: normal affect, normal mood. Absent: agitated, flat affect - Skin Skin exam: Present: warm Additional comments: Right foot is in a walking boot however he did show me images of his right dorsal foot tendon exposure Medical - H&P: Reslt - Labs CBC & Chem 7: 07/14/18 18:40 07/14/18 18:40 Labs: Short CBC 07/14/18 Range/Units 18:40 WBC 5.8 (4.5-11.0) K/mcL Hgb 8.6 L (13.5-16.5) g/dL Hct 26.0 L (41.0-55.0) % Plt Count 167 (140-440) K/mcL BMP 07/14/18 18:40 Sodium 144 Potassium 4.5 Chloride 111 H Carbon Dioxide 19 L BUN 44 H Creatinine 1.7 H Glucose 78 Calcium 8.6 Liver Function 07/14/18 Range/Units 18:40 Total Bilirubin 0.3 (0.0-1.0) mg/dL AST 24 (0-37) U/l ALT 18 (0-40) U/l Alkaline Phosphatase 55 (39-117) U/L Albumin 3.2 (3.2-5.2) gm/dL Medical - H&P: A/P (1) Sudden onset of severe abdominal pain Current visit: Yes Status: Acute This resolved after modest dose of morphine. CT scan of the abdomen does not show aortic aneurysm or aorta dissection. There is not obvious kidney stone or hemorrhage. There is some ascites but it is not a large amount. Bilateral pleural effusions are seen. Etiology of the patient's pain is not clear and to my exam he does not currently have pain. Given the severity and rapid resolution passage of a gallstone, peptic ulcer disease and muscle injury are on the differential. No immediate need for intervention surgically or with medication at this time as symptoms largely resolved (2) Bilateral pleural effusion Current visit: Yes Status: Acute The equal bilateral findings and lack of loculation, fever, elevated white count suggest that this is a transudate of effusion. Will attempt diuresis as he has edema arms legs ascites and pleural effusion. If this is not rapidly successful will do a diagnostic or therapeutic tap of one or both pleural space. - Narrative A/P Narrative: Echocardiogram will be obtained in the morning. Patient's last echo was 2015. Oropharynx is not particularly obstructed. He has not been diagnosed with sleep apnea. Patient will undergo diuresis repeat lab and repeat physical exam tomorrow. 70 minutes spent in evaluation coordination of care for this patient today patient and family were counseled and old records were reviewed.
[2018-07-14] MEDS ORDERED: DEXTROSE 31 GM ORAL.SUSP PO PRN (23:37)
[2018-07-14] MEDS ORDERED: ACETAMINOPHEN 325 MG TABLET PO PRN (23:37)
[2018-07-15] MEDS: PANTOPRAZOLE 40 MG TABLET PO SCH ×3 (00:19→17:14)
[2018-07-15] MEDS ORDERED: FUROSEMIDE 40 MG/4 ML VIAL IV ONE (00:21)
[2018-07-15] MEDS ORDERED: PANTOPRAZOLE 40 MG TABLET ONE (00:21)
[2018-07-15 01:01] LABS: Iron 26 mcg/dl (61-157); Transferrin % Saturation 12 % (20-50); Unsaturated Iron Binding 181 mcg/dL (112-346)
[2018-07-15 05:27] LABS: Basophils # (Auto) 0 K/mcL (0.0-0.3); Basophils % (Auto) 0.3 % (0.0-2.0); Eosinophils # (Auto) 0.2 K/mcL (0.0-0.7); Eosinophils % (Auto) 2.8 % (0.0-7.0); Lymphocytes # (Auto) 0.8 K/mcL (1.5-4.8); Mean Cell Volume 85.4 fL (80.0-100.0); Mean Corpuscular Hemoglobin 28.2 pg (26.0-34.0); Monocytes # (Auto) 0.4 K/mcL (0.1-0.9); Monocytes % (Auto) 6.9 % (1.0-12.0); Platelet Count 158 K/mcL (140-440); RBC 2.82 M/mcL (4.50-5.90); Red Cell Distribution Width 17.3 % (11.5-14.5)
--- NOTE | 2018-07-15 05:57 | Cat Scan Report ---
CLINICAL INFORMATION: Abdominal pain and weakness. History of diabetes and hypertension. COMPARISON: Noncontrast chest CT 06/20/2012 TECHNIQUE: 80 cc of Isovue-300 were injected intravenously, 25 and 65 seconds later, 0.625 mm helical slices were obtained from the mid heart through the subtrochanteric regions. Following reconstruction, 2.5 mm sagittal, coronal and axial reformatted images were processed and reviewed at bone, lung and soft tissue windows. Five minutes later, 0.625 mm helical slices were obtained from the mid heart through the kidneys and viewed at soft tissue windows.The exam was performed using radiation dose optimization techniques including, but not limited to, automated exposure control, adjustment of the mA and/or kV according to patient size and use of iterative reconstruction technique. 3-D volume rendering and CPR images were obtained of the abdominal aorta and branches FINDINGS: Lung bases show large bilateral pleural effusions resulting in compressive subsegmental atelectasis in both posterior upper and lower lobes. Minor scattered calcifications in the visceral pleura noted in both posterior lower lobes. The heart is mildly enlarged and there is extremely heavy fibrofatty and calcific atherosclerotic plaque in all coronary arteries. Either occlusion or subocclusive stenosis is suspected in the left main, proximal LAD, proximal circumflex and right coronary arteries. Images through the abdomen show mildly diminutive liver which is moderately inhomogeneous, with cortical irregularity and asymmetric enlargement of the caudate lobe all compatible with moderate cirrhosis. In addition, there is portal triad edema likely related to CHF. No focal hepatic lesions. The gallbladder and bile ducts are normal: CBD is 6 mm. The spleen is mildly enlarged - 15 x 15 cm. Both kidneys are normal in size configuration and attenuation without minimal perinephric stranding. The adrenal glands and pancreas are normal. The abdominal aorta is normal in contour and caliber with a maximal diameter of 18 mm. The celiac, SMA, renal, lumbar arteries and iliac arteries contain scattered atherosclerotic plaque with no stenoses in the exception of the right internal iliac artery which shows a greater than 50% stenosis near the bifurcation. The stomach, small/large bowel and appendix are unremarkable. There is a small amount of ascites in the deep true pelvis along the paracolic gutters. No free air or adenopathy. Images should the pelvis show urinary bladder, prostate seminal vesicles be normal. Bone windows show no focal osseous lesions. IMPRESSION: 1. No acute intra-abdominal disease 2. Large bilateral pleural effusions resulting in subsegmental compressive atelectasis in both posterior upper and lower lobes. This is most likely related to congestive heart failure. Portal triad edema within the liver is also supportive of congestive heart failure. Suggest: Two view upright chest x-ray. The patient also has extraordinarily heavy fibrofatty and calcific atherosclerotic plaque in the proximal coronary arteries likely resulting in occlusive or subocclusive stenosis in the left main, proximal LAD, circumflex and right coronary arteries. Artifact from heavy calcific plaque precludes the ability to perform optimal CT coronary arteriography. In this particular case, would consider cardiology referral for consultation for possible catheterization 3. Cirrhotic changes with mild splenic enlargement and mild ascites in the deep true pelvis and paracolic gutters which has progressed. No evidence of portal hypertension or varices 4. Abdominal aorta normal in contour and caliber no evidence of aneurysm. All aortic branches are widely patent with exception of a stenosis (greater than 50%) in the right internal iliac artery. Interpreted and Authenticated by: Russel Leahy 07/15/18
[2018-07-15 06:16] LABS: ALT/SGPT 15 U/l (0-40); Albumin/Globulin Ratio 0.9 (1.0-2.3); Alkaline Phosphatase 50 U/L (39-117); Blood Urea Nitrogen 43 mg/dl (8-23); Gamma Glutamyl Transpeptidase 15 U/L (8-61); Uric Acid 7.8 mg/dL (2.5-8.0)
[2018-07-15] MEDS: 0.9 % SODIUM CHLORIDE 10 ML SYRINGE IV SCH ×3 (06:56→21:04)
[2018-07-15] MEDS: oxyCODONE HCL 5 MG TABLET PO PRN ×2 (06:59→19:56)
[2018-07-15] MEDS: INSULIN LISPRO 1 UNIT/0.01 ML UNIT SQ SCH ×4 (07:00→21:03)
[2018-07-15 07:02] LABS: Bilirubin,Direct < 0.2 mg/dL (0.0-0.3)
--- NOTE | 2018-07-15 08:45 | XRay Report ---
CLINICAL INFORMATION: pleural effusion diuresis COMPARISON: 02/15/2018 FINDINGS: The heart is borderline enlarged accentuated by suboptimal inspiratory result. Mediastinum and pulmonary vessels are normal for technique. Moderate patchy bilateral lower lobe infiltrates and small bilateral pleural effusions noted IMPRESSION: Moderate patchy bilateral lower lobe infiltrates and small bilateral pleural effusions. Consider aspiration Interpreted and Authenticated by: Russel Leahy 07/15/18
[2018-07-15] MEDS: ENOXAPARIN 40 MG/0.4 ML SYRINGE SQ SCH (08:54)
[2018-07-15] MEDS: FUROSEMIDE 40 MG/4 ML VIAL IV SCH ×2 (08:55→16:09)
[2018-07-15] MEDS ORDERED: PHENobarb/HYOSCY/ATROPINE/SCOP 1 DOSE BOTTLE PO PRN (15:46)
--- NOTE | 2018-07-15 16:03 | Internal Med Progress Note ---
Medical - PN: Subj Patient information: Note initiated : 07/15/18 at 4:01 pm Service Date, if different from initiated Date: [] Patient: Prince Yan 63 y/o M admitted on 07/14/18 for Abdominal Pain/ Bilateral Pleural Effusion. Chief Complaint: [] Interval history: says he is breathing better and voiding lots of urine. abdominal pain better 4/ 10 now. denies vomiting. he has had H pylori gastritis before and denies recent PPI treatment. Never had CAD or [place] but has multiple risk factors. Pertinent ROS: reports decreased edema hands arms legs. - Constitutional Vitals: Vital Signs Temp Pulse Resp BP Pulse Ox 96.2 F L 87 18 130/83 96 07/15/18 15:48 07/15/18 15:48 07/15/18 15:48 07/15/18 15:48 07/15/18 15:48 Period Temp Pulse Resp BP Sys/Ndiaye Pulse Ox Last 24 Hr 96.2 F-97.8 F 84-104 15-26 129-171/78-100 95-100 Intake and Output 07/15/18 07/15/18 07/15/18 05:59 13:59 21:59 Intake Total 1000 / 1000 450 / 450 Output Total 400 / 400 850 / 850 Balance 600 / 600 -850 / -850 450 / 450 Weight 185 lb Intake & Output: Intake & Output 07/15/18 07/15/18 07/15/18 05:59 13:59 21:59 Intake Total 1000 / 1000 450 / 450 Output Total 400 / 400 850 / 850 Balance 600 / 600 -850 / -850 450 / 450 Weight 185 lb Intake: IV 1000 / 1000 Sodium Chloride 0.9% 1,000 ml @ 1000 / 1000 Wide Open IV BOLUS ONE Rx#: [id number] Oral 0 / 0 450 / 450 Output: Void Amount 400 / 400 850 / 850 Other: Urine Appearance Clear Clear Urine Color Straw Light Aracely Urine Odor Normal # Voids 1 General appearance: average body habitus, no acute distress - Respiratory Respiratory exam: Present: decreased breath sounds, rales Additional comments: lung bases - Cardiovascular Cardiovascular exam: Present: normal rate and rhythm - Extremities Exam Extremities exam: Present: pedal edema (1+, arms no longer with edema) - Neurological Exam Neurological exam: Present: oriented X3 - Psychiatric Psychiatric exam: Present: normal affect, normal mood - Skin Skin exam: Present: dry, warm Medical - PN: Obj Da - Labs CBC & Chem 7: 07/15/18 03:39 07/15/18 03:39 Labs: Abnormal Lab Results 07/15/18 07/15/18 07/14/18 03:39 03:39 18:40 RBC 2.82 L Hgb 7.9 L Hct 24.1 L POC Hct RDW 17.3 H Lymph % (Auto) 14.0 L Lymph # (Auto) 0.8 L POC Chloride Chloride 111 H Carbon Dioxide 20 L POC Total CO2 POC BUN BUN 43 H Creatinine 1.7 H POC Creatinine Calcium 8.3 L Phosphorus 4.9 H Iron 26 L TIBC 207 L Transferrin % Sat 12 L Albumin 3.0 L Albumin/Globulin Ratio 0.9 L 07/14/18 07/14/18 18:40 18:40 RBC 3.05 L Hgb 8.6 L Hct 26.0 L POC Hct 25.0 L RDW 17.2 H Lymph % (Auto) 14.3 L Lymph # (Auto) 0.8 L POC Chloride 112 H Chloride 111 H Carbon Dioxide 19 L POC Total CO2 20 L POC BUN 39 H BUN 44 H Creatinine 1.7 H POC Creatinine 1.6 H Calcium Phosphorus Iron TIBC Transferrin % Sat Albumin Albumin/Globulin Ratio 0.9 L Meds: Medications Acetaminophen (Tylenol) 650 mg PO Q6HP PRN PRN Reason: PAIN/FEVER > 101 Belladonna/Phenobarbital (Gi Cocktail) 1 dose PO Q4HP PRN PRN Reason: Dyspepsia Dextrose (Dextrose 50%) 0 ml IV UD PRN PRN Reason: Hypoglycemia Diagnostic Test (Pha) (Accu-Chek) 1 each FS [facility] Last Admin: 07/15/18 11:40 Dose: 1 each Enoxaparin Sodium (Lovenox) 40 mg SQ DAILY [facility] Last Admin: 07/15/18 08:54 Dose: 40 mg Furosemide (Lasix) 40 mg IV BIDD [facility] Last Admin: 07/15/18 08:55 Dose: 40 mg Glucose (Insta-Glucose) 15 gm PO PRN PRN PRN Reason: Hypoglycemia Insulin Human Lispro (Humalog) 0 unit SQ [facility]; Protocol Last Admin: 07/15/18 11:41 Dose: Not Given Iron Sucrose (Venofer) 200 mg IV MoWeFr [facility] Metoprolol Succinate (Toprol Xl) 25 mg PO DAILY [facility] Oxycodone HCl (Roxicodone) 5 mg PO Q4HP PRN PRN Reason: PAIN LEVEL 3-6 Last Admin: 07/15/18 06:59 Dose: 5 mg Pantoprazole Sodium (Protonix) 40 mg PO BIDAC [facility] Sodium Chloride (Saline Flush) 10 ml IV Q8 [facility] Last Admin: 07/15/18 14:02 Dose: 10 ml Spironolactone (Aldactone) 25 mg PO DAILY [facility] Medical - PN: A/P - Time Spent With Patient Total time spent is greater than 50% in coordination of care (as documented) at patient's floor/unit and/or counseling patient: Greater than 35 minutes (1) Sudden onset of severe abdominal pain Status: Acute Assessment and plan: suspect this is gastritis. Will treat with PPI and Gi cocktail. Current Visit: Yes (2) Bilateral pleural effusion Status: Acute Assessment and plan: diminished on repeat CXR. Echo done and report pending. Will check troponin and pt needs a repeat stress test. EF looks mildly depressed to my untrained eye. Current Visit: Yes (3) Iron deficiency anemia due to chronic blood loss Status: Acute Assessment and plan: will give 3 doses iron sucrose. consider EGD. Current Visit: Yes Medical - PN: Qual - VTE Deep Vein Thrombosis/Pulmonary Embolism Present on Admission: No
[2018-07-15] MEDS: METOPROLOL SUCCINATE 25 MG TAB.XL.24H PO SCH (17:14)
[2018-07-15 17:22] LABS: Blood Urea Nitrogen 43 mg/dl (8-23)
[2018-07-15] MEDS: ATORVASTATIN 20 MG TABLET PO SCH (21:00)
[2018-07-15] MEDS: INSULIN GLARGINE, HUMAN 1 UNIT/0.01 ML SQ SCH (21:01)
[2018-07-16 06:25] LABS: Blood Urea Nitrogen 44 mg/dl (8-23)
[2018-07-16] MEDS: PANTOPRAZOLE 40 MG TABLET PO SCH ×2 (07:41→17:46)
[2018-07-16] MEDS: INSULIN LISPRO 1 UNIT/0.01 ML UNIT SQ SCH ×4 (07:41→20:50)
[2018-07-16] MEDS: FUROSEMIDE 40 MG/4 ML VIAL IV SCH ×2 (07:43→15:41)
[2018-07-16] MEDS: 0.9 % SODIUM CHLORIDE 10 ML SYRINGE IV SCH ×3 (07:45→21:42)
[2018-07-16] MEDS ORDERED: CLOPIDOGREL 75 MG TABLET PO SCH (09:00)
[2018-07-16] MEDS: IRON SUCROSE COMPLEX 100 MG/5 ML VIAL IV SCH (09:07)
[2018-07-16] MEDS: SPIRONOLACTONE 25 MG TABLET PO SCH (09:07)
[2018-07-16] MEDS: ASPIRIN 81 MG TAB.CHEW PO SCH (09:07)
[2018-07-16] MEDS: ENOXAPARIN 40 MG/0.4 ML SYRINGE SQ SCH (09:07)
[2018-07-16] MEDS: METOPROLOL SUCCINATE 25 MG TAB.XL.24H PO SCH (09:07)
[2018-07-16] MEDS: oxyCODONE HCL 5 MG TABLET PO PRN ×2 (15:41→21:43)
[2018-07-16] MEDS ORDERED: 0.9 % SODIUM CHLORIDE 250 ML IV SCH (17:30)
--- NOTE | 2018-07-16 17:39 | Internal Med Progress Note ---
<Figueroa Downing - Last Filed: 07/16/18 17:30> Medical - PN: Subj Patient information: Note initiated : 07/16/18 at 5:30 pm Service Date, if different from initiated Date: [] Patient: Prince Yan 63 y/o M admitted on 07/14/18 for Abdominal Pain/ Bilateral Pleural Effusion. Chief Complaint: [] Interval history: patient's labs came back 2 times with elevated troponins. Spoke with Dr. Colmenares about potential outpatient stress test vs coronary angiography at [facility]. Considered [place] for coronary angiography in case of emergent situation. Spoke with pt again and discovered slight ascites and an whole body pallor ( consistent with latest H&H). Pt still complains of epigastric pain, could still be bleeding. Spoke with Dr. belle who wants labs to rule our cirrhosis. Ordered labs and spoke to Dr. Prado (stockroom selector) in [place] who suggested taking care of the potential gastric bleed and/or cirrhosis. Ordered 2 units of blood and will schedule endoscopy for tomorrow. - Constitutional Vitals: Vital Signs Temp Pulse Resp BP Pulse Ox 97.3 F 65 20 138/53 98 07/16/18 15:42 07/16/18 07:54 07/16/18 15:42 07/16/18 15:42 07/16/18 15:42 Period Temp Pulse Resp BP Sys/Ndiaye Pulse Ox Last 24 Hr 97.3 F-98.0 F 65-79 20-22 117-157/53-84 96-98 Intake and Output 07/16/18 07/16/18 07/16/18 05:59 13:59 21:59 Intake Total 390 / 390 500 / 500 100 / 100 Output Total 725 / 725 Balance 390 / 390 -225 / -225 100 / 100 Weight 183 lb 8 oz Patient Weight 07/17/18 05:59 Weight 183 lb 8 oz Intake & Output: Intake & Output 07/16/18 07/16/18 07/16/18 05:59 13:59 21:59 Intake Total 390 / 390 500 / 500 100 / 100 Output Total 725 / 725 Balance 390 / 390 -225 / -225 100 / 100 Weight 183 lb 8 oz Intake: Oral 390 / 390 500 / 500 100 / 100 Output: Void Amount 725 / 725 Other: Meal Lunch Percent of Meal Consumed 100% Feeding Ability Independent # Voids 1 General appearance: cooperative, no acute distress - Head Head exam: Present: atraumatic - GI/Abdominal GI/Abdominal exam: Present: soft, guarding, tenderness (epigastric) - Expanded Abdominal Exam GI/Abdominal exam: Present: ascites - Extremities Exam Extremities exam: Absent: pedal edema - Skin Skin exam: Present: dry, pallor Medical - PN: Obj Da - Labs CBC & Chem 7: 07/15/18 03:39 07/16/18 04:17 Labs: Abnormal Lab Results 07/16/18 07/16/18 07/15/18 09:36 04:17 16:35 RBC Hgb Hct POC Hct RDW Lymph % (Auto) Lymph # (Auto) POC Chloride Chloride 110 H Carbon Dioxide 20 L 20 L POC Total CO2 POC BUN BUN 44 H 43 H Creatinine 1.9 H 1.8 H POC Creatinine Glucose 62 L 132 H Calcium 8.4 L 8.5 L Phosphorus Iron TIBC Transferrin % Sat Troponin T 0.19 H* Albumin Albumin/Globulin Ratio 07/15/18 07/15/18 07/15/18 16:30 03:39 03:39 RBC 2.82 L Hgb 7.9 L Hct 24.1 L POC Hct RDW 17.3 H Lymph % (Auto) 14.0 L Lymph # (Auto) 0.8 L POC Chloride Chloride 111 H Carbon Dioxide 20 L POC Total CO2 POC BUN BUN 43 H Creatinine 1.7 H POC Creatinine Glucose Calcium 8.3 L Phosphorus 4.9 H Iron TIBC Transferrin % Sat Troponin T 0.19 H* Albumin 3.0 L Albumin/Globulin Ratio 0.9 L 07/14/18 07/14/18 07/14/18 18:40 18:40 18:40 RBC 3.05 L Hgb 8.6 L Hct 26.0 L POC Hct 25.0 L RDW 17.2 H Lymph % (Auto) 14.3 L Lymph # (Auto) 0.8 L POC Chloride 112 H Chloride 111 H Carbon Dioxide 19 L POC Total CO2 20 L POC BUN 39 H BUN 44 H Creatinine 1.7 H POC Creatinine 1.6 H Glucose Calcium Phosphorus Iron 26 L TIBC 207 L Transferrin % Sat 12 L Troponin T Albumin Albumin/Globulin Ratio 0.9 L Meds: Medications Acetaminophen (Tylenol) 650 mg PO Q6HP PRN PRN Reason: PAIN/FEVER > 101 Aspirin (Aspirin) 81 mg PO DAILY [facility] Last Admin: 07/16/18 09:07 Dose: 81 mg Atorvastatin Calcium (Lipitor) 20 mg PO HS [facility] Last Admin: 07/15/18 21:00 Dose: 20 mg Belladonna/Phenobarbital (Gi Cocktail) 1 dose PO Q4HP PRN PRN Reason: Dyspepsia Dextrose (Dextrose 50%) 0 ml IV UD PRN PRN Reason: Hypoglycemia Diagnostic Test (Pha) (Accu-Chek) 1 each FS ACHS [facility] Last Admin: 07/16/18 11:47 Dose: 1 each Enoxaparin Sodium (Lovenox) 40 mg SQ DAILY [facility] Last Admin: 07/16/18 09:07 Dose: 40 mg Furosemide (Lasix) 40 mg IV BIDD [facility] Last Admin: 07/16/18 15:41 Dose: 40 mg Glucose (Insta-Glucose) 15 gm PO PRN PRN PRN Reason: Hypoglycemia Sodium Chloride (Sodium Chloride 0.9%) 250 mls @ 20 mls/hr IV .[id number] [facility] Stop: 07/17/18 05:59 Insulin Glargine (Lantus) 50 unit SQ [facility] Last Admin: 07/15/18 21:01 Dose: 50 unit Insulin Human Lispro (Humalog) 0 unit SQ [facility]; Protocol Last Admin: 07/16/18 11:47 Dose: Not Given Iron Sucrose (Venofer) 200 mg IV MoWeFr@0900 [facility] Last Admin: 07/16/18 09:07 Dose: 200 mg Metoprolol Succinate (Toprol Xl) 25 mg PO DAILY [facility] Last Admin: 07/16/18 09:07 Dose: 25 mg Oxycodone HCl (Roxicodone) 5 mg PO Q4HP PRN PRN Reason: PAIN LEVEL 3-6 Last Admin: 07/16/18 15:41 Dose: 5 mg Pantoprazole Sodium (Protonix) 40 mg PO BIDAC [facility] Last Admin: 07/16/18 07:41 Dose: 40 mg Sodium Chloride (Saline Flush) 10 ml IV Q8 [facility] Last Admin: 07/16/18 14:25 Dose: 10 ml Spironolactone (Aldactone) 25 mg PO DAILY [facility] Last Admin: 07/16/18 09:07 Dose: 25 mg Medical - PN: A/P - Time Spent With Patient Total time spent is greater than 50% in coordination of care (as documented) at patient's floor/unit and/or counseling patient: Greater than 35 minutes (1) Ascites Status: Acute Assessment and plan: CT imaging of mild cirrhosis confirmed per Dr. Bhatia. Ordered chronic cirrhosis panel, anti-mitochondrial, anti-smooth muscle, and other labs per Dr. Belle to rule out different etiologies of cirrhosis. Current Visit: Yes (2) Bilateral pleural effusion Status: Acute Assessment and plan: Giving 2L of RBC to strengthen heart. Will then diurese of excess fluid. Current Visit: Yes (3) Anemia Status: Acute Assessment and plan: Giving 2L of RBC Current Visit: Yes (4) Foot ulcer Problem details: Ulcer of other part of foot Status: Chronic Current Visit: No Medical - PN: Qual - VTE Deep Vein Thrombosis/Pulmonary Embolism Present on Admission: No <Syed Stapleton - Last Filed: 07/16/18 18:58> Medical - PN: Subj Patient information: Note initiated : 07/16/18 at 6:31 pm Service Date, if different from initiated Date: [] Patient: Prince Yan 63 y/o M admitted on 07/14/18 for Abdominal Pain/ Bilateral Pleural Effusion. Chief Complaint: [] Interval history: pt with liver decrease in size over last 2 years and irregular surface and some splenic vein full suspicious for cirrhosis. Pt denies hx of blood transfusion. He denies history of STD or Alcoholism. No drug use. Pt denies chest pain. He is still with epigastric pain mildly improved. - Constitutional Vitals: Vital Signs Temp Pulse Resp BP Pulse Ox 97.3 F 65 20 138/53 98 07/16/18 15:42 07/16/18 07:54 07/16/18 15:42 07/16/18 15:42 07/16/18 15:42 Period Temp Pulse Resp BP Sys/Ndiaye Pulse Ox Last 24 Hr 97.3 F-98.0 F 65-79 20-22 117-157/53-84 96-98 Intake and Output 07/16/18 07/16/18 07/16/18 05:59 13:59 21:59 Intake Total 390 / 390 500 / 500 300 / 300 Output Total 725 / 725 650 / 650 Balance 390 / 390 -225 / -225 -350 / -350 Weight 183 lb 8 oz Patient Weight 07/17/18 05:59 Weight 183 lb 8 oz Intake & Output: Intake & Output 07/16/18 07/16/18 07/16/18 05:59 13:59 21:59 Intake Total 390 / 390 500 / 500 300 / 300 Output Total 725 / 725 650 / 650 Balance 390 / 390 -225 / -225 -350 / -350 Weight 183 lb 8 oz Intake: Oral 390 / 390 500 / 500 300 / 300 Output: Void Amount 725 / 725 650 / 650 Other: Meal Lunch Dinner Percent of Meal Consumed 100% 80% Feeding Ability Independent Independent # Voids 1 1 - Respiratory Respiratory exam: Present: decreased breath sounds (bibasilar), rales. Absent: accessory muscle use Additional comments: bibasilar - Cardiovascular Cardiovascular exam: Present: normal rate and rhythm - GI/Abdominal GI/Abdominal exam: Present: normal bowel sounds. Absent: distended, guarding ( epigastirc) Medical - PN: Obj Da - Labs CBC & Chem 7: 07/15/18 03:39 07/16/18 04:17 Labs: Abnormal Lab Results 07/16/18 07/16/18 07/15/18 09:36 04:17 16:35 RBC Hgb Hct POC Hct RDW Lymph % (Auto) Lymph # (Auto) POC Chloride Chloride 110 H Carbon Dioxide 20 L 20 L POC Total CO2 POC BUN BUN 44 H 43 H Creatinine 1.9 H 1.8 H POC Creatinine Glucose 62 L 132 H Calcium 8.4 L 8.5 L Phosphorus Iron TIBC Transferrin % Sat Troponin T 0.19 H* Albumin Albumin/Globulin Ratio 07/15/18 07/15/18 07/15/18 16:30 03:39 03:39 RBC 2.82 L Hgb 7.9 L Hct 24.1 L POC Hct RDW 17.3 H Lymph % (Auto) 14.0 L Lymph # (Auto) 0.8 L POC Chloride Chloride 111 H Carbon Dioxide 20 L POC Total CO2 POC BUN BUN 43 H Creatinine 1.7 H POC Creatinine Glucose Calcium 8.3 L Phosphorus 4.9 H Iron TIBC Transferrin % Sat Troponin T 0.19 H* Albumin 3.0 L Albumin/Globulin Ratio 0.9 L 07/14/18 07/14/18 07/14/18 18:40 18:40 18:40 RBC 3.05 L Hgb 8.6 L Hct 26.0 L POC Hct 25.0 L RDW 17.2 H Lymph % (Auto) 14.3 L Lymph # (Auto) 0.8 L POC Chloride 112 H Chloride 111 H Carbon Dioxide 19 L POC Total CO2 20 L POC BUN 39 H BUN 44 H Creatinine 1.7 H POC Creatinine 1.6 H Glucose Calcium Phosphorus Iron 26 L TIBC 207 L Transferrin % Sat 12 L Troponin T Albumin Albumin/Globulin Ratio 0.9 L Meds: Medications Acetaminophen (Tylenol) 650 mg PO Q6HP PRN PRN Reason: PAIN/FEVER > 101 Aspirin (Aspirin) 81 mg PO DAILY [facility] Last Admin: 07/16/18 09:07 Dose: 81 mg Atorvastatin Calcium (Lipitor) 20 mg PO HS [facility] Last Admin: 07/15/18 21:00 Dose: 20 mg Belladonna/Phenobarbital (Gi Cocktail) 1 dose PO Q4HP PRN PRN Reason: Dyspepsia Dextrose (Dextrose 50%) 0 ml IV UD PRN PRN Reason: Hypoglycemia Diagnostic Test (Pha) (Accu-Chek) 1 each FS [facility] Last Admin: 07/16/18 17:46 Dose: 1 each Enoxaparin Sodium (Lovenox) 40 mg SQ DAILY [facility] Last Admin: 07/16/18 09:07 Dose: 40 mg Furosemide (Lasix) 40 mg IV BIDD [facility] Last Admin: 07/16/18 15:41 Dose: 40 mg Glucose (Insta-Glucose) 15 gm PO PRN PRN PRN Reason: Hypoglycemia Sodium Chloride (Sodium Chloride 0.9%) 250 mls @ 20 mls/hr IV .[id number] [facility] Stop: 07/17/18 05:59 Insulin Glargine (Lantus) 50 unit SQ [facility] Last Admin: 07/15/18 21:01 Dose: 50 unit Insulin Human Lispro (Humalog) 0 unit SQ [facility]; Protocol Last Admin: 07/16/18 17:46 Dose: Not Given Iron Sucrose (Venofer) 200 mg IV MoWeFr@0900 [facility] Last Admin: 07/16/18 09:07 Dose: 200 mg Metoprolol Succinate (Toprol Xl) 25 mg PO DAILY [facility] Last Admin: 07/16/18 09:07 Dose: 25 mg Oxycodone HCl (Roxicodone) 5 mg PO Q4HP PRN PRN Reason: PAIN LEVEL 3-6 Last Admin: 07/16/18 15:41 Dose: 5 mg Pantoprazole Sodium (Protonix) 40 mg PO BIDAC [facility] Last Admin: 07/16/18 17:46 Dose: 40 mg Sodium Chloride (Saline Flush) 10 ml IV Q8 [facility] Last Admin: 07/16/18 14:25 Dose: 10 ml Spironolactone (Aldactone) 25 mg PO DAILY [facility] Last Admin: 07/16/18 09:07 Dose: 25 mg Medical - PN: A/P - Time Spent With Patient Total time spent is greater than 50% in coordination of care (as documented) at patient's floor/unit and/or counseling patient: (1) Sudden onset of severe abdominal pain Status: Acute Assessment and plan: appears to be UGI in origin with epigastric tenderness and history of H pylori 15 years ago treated with meds for 9 months. HCT low and iron deficient. I gave venofer. Also spoke with Dr. Koehler and plan for EGD in the AM. Eventually will also need colonoscopy Current Visit: Yes (2) Bilateral pleural effusion Status: Acute Assessment and plan: 2units PRBC transfusion and diurese in preparation for EGD in AM. Also with probable coronary ischemia will increase goal HCT to 29 Current Visit: Yes (3) Iron deficiency anemia due to chronic blood loss Status: Acute Assessment and plan: replace and looking for source see above. Current Visit: Yes (4) Cirrhosis of liver Status: Acute Assessment and plan: uncertain etiology. Labs as per Dr. Ordonez recommendations Current Visit: Yes (5) Wound of right lower extremity Status: Acute Assessment and plan: exposed tendon. Cont care as per Dr. 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 Likely will proceed with Non invasive cardiac testing prior to angiogram due to comorbidities. Current Visit: Yes - Narrative A/P Narrative: pt and sister counseled in length. greater than 1 hours spent in evaluation and coordination of care for this patient today.
[2018-07-16 19:28] LABS: Hepatitis B Surface Antibody POSITIVE (NEGATIVE); Hepatitis C Virus Antibody NON REACTIVE (NEGATIVE)
--- NOTE | 2018-07-16 20:26 | Consultation ---
DATE OF CONSULTATION: 07/16/2018 CHIEF COMPLAINT: Epigastric pain and iron deficiency anemia. HISTORY OF PRESENT ILLNESS: Mr. Yan is a 63-year-old white male for whom GI consultation is requested mostly regarding epigastric pain evaluation. The patient has a complex medical history with underlying diabetes and peripheral vascular disease with neuropathy. He also has hyperlipidemia. He does not have any prior history of GI bleeding. He is not aware of anemia or cirrhosis or heart disease. He was admitted to the hospital on 07/14/2018 because for the 48 hours prior to admission, he had gradually increasing epigastric pain, shortness of breath, and decreased appetite that all started and increased in concert with one another. When he was admitted to the hospital, he was found to have large bilateral pleural effusions. He underwent ultrasound and then CAT scan of the abdomen which demonstrates severe calcifications in the coronary arteries, large bilateral pleural effusions, and a cirrhotic-appearing liver with enlargement of the caudate lobe. The spleen is mildly enlarged. There is no evidence of varices. Since admission, he has been diuresed with Lasix and says that his shortness of breath has improved substantially. Along with the improvement of the shortness of breath, his epigastric abdominal pain has been reduced he says by about half, and his appetite has also returned in the last day or so. Further review of his laboratory studies show that his hemoglobin is only 7.9 with MCV 85. The platelet count is in the low normal range at 158,000. His BUN is 44 with creatinine elevated at 1.9. His INR is pending. Liver chemistries are normal. The patient is not an alcohol drinker. There is no family history of liver disease. He had a colonoscopy about 15 years ago and recalls maybe a couple of little polyps. He sees no blood in his bowel movements. He had vomiting 3 days before admission, but it was nonbloody and was not repeated. He denies dysphagia. He has never had an upper GI endoscopy performed. He is undergoing antibiotic infusions because of the significant diabetic foot ulcer with an exposed tendon at the right foot. I am asked to see the patient mostly regarding the epigastric pain. He was started on PPI therapy when he was admitted to the hospital, but had not been on any PPI therapy prior to the admission, but he is listed as being on Protonix 40 mg daily at home. PAST MEDICAL HISTORY: Includes the diabetes with neuropathy and peripheral vascular disease. With the recent findings, there is also now evident significant coronary artery disease by CAT scan, bilateral pleural effusions presumably due to heart failure, moderately cirrhotic- appearing liver by CAT scan with enlargement of the caudate lobe and minimal ascites. He also has renal insufficiency with creatinine of 1.9. PAST SURGICAL HISTORY: He has had a vascular ballooning of the right lower extremity and a diabetic foot ulcer debridements. SOCIAL HISTORY: He does not smoke and does not drink alcohol. MEDICATIONS AT HOME: Include aspirin 81 mg daily, lisinopril with hydrochlorothiazide 20/12.5 mg daily, glargine insulin 50 units subQ at bedtime, Plavix 75 mg daily, Protonix 40 mg, Lipitor 20 mg daily, and sliding scale insulin coverage. ALLERGIES: NO KNOWN DRUG ALLERGIES. PHYSICAL EXAMINATION: VITAL SIGNS: Blood pressure is 138/53, pulse 73, respirations 20, temperature 97.3 degrees. GENERAL: The patient is awake and alert. No acute distress. Friendly and cooperative. SKIN: Without stigmata of chronic liver disease. HEENT: Sclerae are not icteric. LUNGS: He has decreased breath sounds at the bases. No wheezing. No respiratory distress. CARDIAC: Regular rate and rhythm. No gallop. ABDOMEN: Abdomen is soft, but with significant tenderness mostly at the epigastrium. I do believe this corresponds to the caudate lobe enlargement. There is also tenderness at the mid abdomen and somewhat at the lower abdomen, but the most intense tenderness is at the epigastrium. I did not appreciate splenomegaly by exam. EXTREMITIES: Notable for 2+ edema in the right lower extremity, is heavily bandaged in the area of his diabetic foot ulcer which I am told includes a visible tendon. LABORATORY STUDIES: White count was 5800; hemoglobin 7.9; platelets 158,000; MCV 85. BUN 44, creatinine 1.9. A CAT scan as mentioned above. It should be noted on the CAT scan that his mesenteric vessels appear patent. Liver chemistry is normal. ASSESSMENT AND RECOMMENDATIONS: I most suspect that the epigastric pain that developed in concert with the shortness of breath and decreased appetite relates to passive congestion of the liver associated with heart failure. I think it is noteworthy that the abdominal pain has diminished along with improvement of his shortness of breath and returned of his appetite as he has been diuresed in the hospital for the last couple of days. Nevertheless, the epigastric tenderness is much more than I would anticipate from typical passive congestion of the liver. I have been asked to perform an EGD, which I will do tomorrow afternoon. The patient is going to receive a couple of units of packed red blood cells tonight. He will be made NPO after midnight. I talked to Dr. Stapleton, the hospitalist, about colonoscopy and it sounds like he would prefer I not proceed the colonoscopy at this time. Certainly, the iron deficiency anemia in a man would call for an examination of the colon. The patient does acknowledge that his PCP did a stool study looking for blood in the stool as of about 2 months ago which was negative. The near future plan is for the patient to be referred to a hostess party sales representative with interventional capability. I do recommend serologic workup of the cirrhosis including hepatitis B and hepatitis C serology, antinuclear antibody, antimitochondrial antibody, antismooth muscle antibody, ceruloplasmin, and alpha-1 antitrypsin phenotype. It may be that the patient's cirrhosis is on the basis of fatty liver disease associated with his overweight status, his diabetes, hyperlipidemia, etc., (metabolic syndrome). JCM:in Job ID: [id number] Doc ID: [id number] Russel Huggins PA-C
[2018-07-16] MEDS: INSULIN GLARGINE, HUMAN 1 UNIT/0.01 ML SQ SCH (21:42)
[2018-07-16] MEDS: ATORVASTATIN 20 MG TABLET PO SCH (21:42)
--- NOTE | 2018-07-16 22:01 | General Surgery Progress Note ---
Surgical - Auxillary Note - Subjective Patient Information: Note initiated : 07/16/18 at 9:57 pm Service Date, if different from initiated Date: [] Patient: Prince Yan 63 y/o M admitted on 07/14/18 for Abdominal Pain/ Bilateral Pleural Effusion. Chief Complaint: Patient seen early this morning. Reports he is feeling better than on admission. His breathing is better. On exam the right foot wound is clean. Granulation tissue present along wound bed. No exudate. Exposed tendon appears less dry. Continue current dressings. Plan consult with orthopedics as outpatient.
[2018-07-17] MEDS: 0.9 % SODIUM CHLORIDE 10 ML SYRINGE IV SCH ×3 (05:38→20:21)
[2018-07-17 05:42] LABS: Basophils # (Auto) 0 K/mcL (0.0-0.3); Basophils % (Auto) 0.3 % (0.0-2.0); Eosinophils # (Auto) 0.2 K/mcL (0.0-0.7); Eosinophils % (Auto) 2.8 % (0.0-7.0); Granulocytes % (Auto) 71.9 % (38.0-78.0); Lymphocytes % (Auto) 17.2 % (15.5-49.0); Mean Cell Volume 85.6 fL (80.0-100.0); Mean Corpuscular HGB Conc 33.5 g/dL (31.0-36.0); Mean Corpuscular Hemoglobin 28.7 pg (26.0-34.0); Monocytes # (Auto) 0.5 K/mcL (0.1-0.9); Monocytes % (Auto) 7.8 % (1.0-12.0); Platelet Count 154 K/mcL (140-440); RBC 3.64 M/mcL (4.50-5.90); Red Cell Distribution Width 15.9 % (11.5-14.5)
[2018-07-17 05:49] LABS: ALT/SGPT 11 U/l (0-40); Albumin 3.1 gm/dL (3.2-5.2); Alkaline Phosphatase 53 U/L (39-117); Blood Urea Nitrogen 47 mg/dl (8-23)
[2018-07-17] MEDS: INSULIN LISPRO 1 UNIT/0.01 ML UNIT SQ SCH ×4 (07:52→20:12)
[2018-07-17] MEDS: PANTOPRAZOLE 40 MG TABLET PO SCH ×2 (07:53→17:43)
[2018-07-17] MEDS: METOLAZONE 2.5 MG TABLET PO SCH ×2 (07:53→17:15)
[2018-07-17] MEDS: DEXTROSE 50% 50 ML VIAL IV PRN ×2 (07:58→11:25)
[2018-07-17] MEDS: FUROSEMIDE 40 MG/4 ML VIAL IV SCH ×2 (07:58→17:44)
[2018-07-17] MEDS: ENOXAPARIN 40 MG/0.4 ML SYRINGE SQ SCH (08:00)
[2018-07-17] MEDS: ASPIRIN 81 MG TAB.CHEW PO SCH (08:00)
[2018-07-17] MEDS: METOPROLOL SUCCINATE 25 MG TAB.XL.24H PO SCH (08:00)
[2018-07-17] MEDS: SPIRONOLACTONE 25 MG TABLET PO SCH ×2 (08:00→17:43)
--- NOTE | 2018-07-17 08:04 | XRay Report ---
CLINICAL INFORMATION: follow up chf COMPARISON: 07/15/2018 FINDINGS: Borderline cardiomegaly is unchanged. Mediastinum is unremarkable. Pulmonary vessels are normal for technique. Moderate patchy bibasilar infiltrates with slight progression. Tiny bilateral pleural effusions noted IMPRESSION: Moderate patchy bibasilar infiltrates - slight progression from yesterday. Tiny bilateral pleural effusions Interpreted and Authenticated by: Russel Leahy 07/17/18
--- NOTE | 2018-07-17 09:53 | General Surgery Progress Note ---
Surgical - Auxillary Note - Subjective Patient Information: Note initiated : 07/17/18 at 9:53 am Service Date, if different from initiated Date: [] Patient: Prince Yan 63 y/o M admitted on 07/14/18 for Abdominal Pain/ Bilateral Pleural Effusion. Chief Complaint: [] Patient sitting up in bed. Says he is feeling better but has further testing today to see if he needs to go to [place] for further treatment. Review of his chart shows elevated Troponins twice yesterday and low Hgb. Both of these problems are currently being evaluated further. Vital Signs Temp Pulse Resp BP Pulse Ox 97.2 F 73 22 141/88 97 07/17/18 06:48 07/17/18 06:48 07/17/18 06:48 07/17/18 06:48 07/17/18 06:48 Period Temp Pulse Resp BP Sys/Ndiaye Pulse Ox Last 24 Hr 97.2 F-98.2 F 73-84 16-24 131-157/53-90 96-98 Intake and Output 07/16/18 07/17/18 07/17/18 21:59 05:59 13:59 Intake Total 300 / 300 1110 / 1110 Output Total 650 / 650 575 / 575 Balance -350 / -350 535 / 535 Weight 182 lb PE: No distress. Breathing non labored Right foot dorsal wound clean with granulation tissue covering most of the surface of the wound with scant visible area of tendons that remain in place. The larger extensor tendon that is displaced and thinned is still attached with less drying out than before. Heel wound with clean granulation tissue that is starting to protrude above the level of the skin edge. Wound is without discharge but very moist. Laboratory Last Values WBC 5.9 K/mcL (4.5-11.0) 07/17/18 04:05 RBC 3.64 M/mcL (4.50-5.90) L 07/17/18 04:05 Hgb 10.4 g/dL (13.5-16.5) L 07/17/18 04:05 Hct 31.1 % (41.0-55.0) L 07/17/18 04:05 POC Hct 25.0 % (41.0-55.0) L 07/14/18 18:40 MCV 85.6 fL (80.0-100.0) 07/17/18 04:05 MCH 28.7 pg (26.0-34.0) 07/17/18 04:05 MCHC 33.5 g/dL (31.0-36.0) 07/17/18 04:05 RDW 15.9 % (11.5-14.5) H 07/17/18 04:05 Plt Count 154 K/mcL (140-440) 07/17/18 04:05 MPV 9.3 fL (7.4-10.4) 07/17/18 04:05 Gran % 71.9 % (38.0-78.0) 07/17/18 04:05 Lymph % (Auto) 17.2 % (15.5-49.0) 07/17/18 04:05 [place] % (Auto) 7.8 % (1.0-12.0) 07/17/18 04:05 Eos % (Auto) 2.8 % (0.0-7.0) 07/17/18 04:05 Baso % (Auto) 0.3 % (0.0-2.0) 07/17/18 04:05 Gran # 4.3 K/mcL (1.8-8.0) 07/17/18 04:05 Lymph # (Auto) 1.0 K/mcL (1.5-4.8) L 07/17/18 04:05 [place] # (Auto) 0.5 K/mcL (0.1-0.9) 07/17/18 04:05 Eos # (Auto) 0.2 K/mcL (0.0-0.7) 07/17/18 04:05 Baso # (Auto) 0 K/mcL (0.0-0.3) 07/17/18 04:05 PT 15.0 sec (11.9-14.5) H 07/16/18 17:35 INR 1.2 (0.9-1.1) H 07/16/18 17:35 VBG Lactic Acid 1.3 mmol/L (0.5-2.2) 07/14/18 18:40 POC Sodium 145 mmol/L (133-145) 07/14/18 18:40 Sodium 141 mmol/L (133-145) 07/17/18 04:00 POC Potassium 4.3 mmol/L (3.3-5.1) 07/14/18 18:40 Potassium 4.5 mmol/L (3.3-5.1) 07/17/18 04:00 POC Chloride 112 mmol/L (96-108) H 07/14/18 18:40 Chloride 107 mmol/L (96-108) 07/17/18 04:00 Carbon Dioxide 22 mmol/L (22-30) 07/17/18 04:00 POC Total CO2 20 mmol/L (22-30) L 07/14/18 18:40 Anion Gap 12.0 (8-16) 07/17/18 04:00 POC BUN 39 mg/dl (8-23) H 07/14/18 18:40 BUN 47 mg/dl (8-23) H 07/17/18 04:00 Creatinine 1.7 mg/dl (0.7-1.2) H 07/17/18 04:00 POC Creatinine 1.6 mg/dl (0.7-1.2) H 07/14/18 18:40 GFR Calculation 42 07/17/18 04:00 Glucose 82 mg/dL (70-105) 07/17/18 04:00 POC Glucose 78 mg/dL (70-105) 07/14/18 18:40 Uric Acid 7.8 mg/dL (2.5-8.0) 07/15/18 03:39 Calcium 8.5 mg/dl (8.6-10.4) L 07/17/18 04:00 POC WB Ioniz Calcium 1.19 mmol/L (1.16-1.32) 07/14/18 18:40 Phosphorus 4.9 mg/dL (2.7-4.5) H 07/15/18 03:39 Magnesium 2.4 mg/dL (1.6-2.5) 07/15/18 03:39 Iron 26 mcg/dl (61-157) L 07/14/18 18:40 TIBC 207 ug/dl (228-428) L 07/14/18 18:40 Unsat Iron Binding 181 mcg/dL (112-346) 07/14/18 18:40 Transferrin % Sat 12 % (20-50) L 07/14/18 18:40 Total Bilirubin 0.4 mg/dL (0.0-1.0) 07/17/18 04:00 Direct Bilirubin < 0.2 mg/dL (0.0-0.3) 07/15/18 03:39 GGT 15 U/L (8-61) 07/15/18 03:39 AST 15 U/l (0-37) 07/17/18 04:00 ALT 11 U/l (0-40) 07/17/18 04:00 Alkaline Phosphatase 53 U/L (39-117) 07/17/18 04:00 Lactate Dehydrogenase 216 U/L (94-250) 07/15/18 03:39 Troponin T 0.19 ng/ml (0-0.03) H* 07/16/18 17:05 Total Protein 6.3 gm/dL (5.9-8.4) 07/17/18 04:00 Albumin 3.1 gm/dL (3.2-5.2) L 07/17/18 04:00 Globulin 3.2 gm/dL (2.2-3.7) 07/17/18 04:00 Albumin/Globulin Ratio 1.0 (1.0-2.3) 07/17/18 04:00 Triglycerides 136 mg/dl (<150) 07/15/18 03:39 Amylase 28 U/L (28-100) 07/14/18 18:40 Lipase 15 U/L (7-60) 07/14/18 18:40 TSH 3.35 uIU/ml (0.27-5.01) 07/15/18 03:39 Hep Bs Antibody Positive (NEGATIVE) A 07/16/18 17:35 Hepatitis C Antibody Non reactive (NEGATIVE) 07/16/18 17:35 A/P: Right foot wounds. Wound beds are clean. Will change heel wound dressing to silver alginate bc of extra moisture present. Exposed tendon is chronic. Will plan for orthopedics consult as outpatient once current medical issues resolved. If patient is transferred to [place] for continued care of this hospitalization then would recommend consult with Orthopedic surgeon there for the exposed tendon and wound care for evaluation of foot wounds.
--- NOTE | 2018-07-17 11:11 | Internal Med Progress Note ---
Medical - PN: Subj Patient information: Note initiated : 07/17/18 at 11:09 am Service Date, if different from initiated Date: [] Patient: Prince Yan 63 y/o M admitted on 07/14/18 for Abdominal Pain/ Bilateral Pleural Effusion. Chief Complaint: [] Interval history: transfused 2 units PRBC last night and has voided 2 urinals full this morning. Says is feeling stronger and breathing better. Epigastic pain mildly improved. - Constitutional Vitals: Vital Signs Temp Pulse Resp BP Pulse Ox 97.2 F 74 22 141/88 97 07/17/18 06:48 07/17/18 08:00 07/17/18 08:00 07/17/18 06:48 07/17/18 08:00 Period Temp Pulse Resp BP Sys/Ndiaye Pulse Ox Last 24 Hr 97.2 F-98.2 F 73-84 16-24 131-157/53-90 96-98 Intake and Output 07/16/18 07/17/18 07/17/18 21:59 05:59 13:59 Intake Total 300 / 300 1110 / 1110 Output Total 650 / 650 575 / 575 Balance -350 / -350 535 / 535 Weight 182 lb Intake & Output: Intake & Output 07/16/18 07/17/18 07/17/18 21:59 05:59 13:59 Intake Total 300 / 300 1110 / 1110 Output Total 650 / 650 575 / 575 Balance -350 / -350 535 / 535 Weight 182 lb Intake: Oral 300 / 300 460 / 460 Blood Product 650 / 650 Output: Void Amount 650 / 650 575 / 575 Other: Meal Dinner egg salad sandwich Percent of Meal Consumed 80% 50% Feeding Ability Independent Independent Urine Appearance Clear Urine Color Bright Yellow Urine Odor Normal # Voids 1 - Head Head exam: Present: normal inspection - Neck Neck exam: Present: normal inspection - Respiratory Respiratory exam: Present: rales Additional comments: right greater than left base. lower 1/3 right lower 1/4 left - Cardiovascular Cardiovascular exam: Present: normal rate and rhythm - GI/Abdominal GI/Abdominal exam: Present: normal bowel sounds, tenderness (epigastric) - Extremities Exam Extremities exam: Present: pedal edema Additional comments: 2+ right 1+ left - Skin Skin exam: Present: dry, warm Medical - PN: Obj Da - Labs CBC & Chem 7: 07/17/18 04:05 07/17/18 04:00 Labs: Abnormal Lab Results 07/17/18 07/17/18 07/16/18 04:05 04:00 17:35 RBC 3.64 L Hgb 10.4 L Hct 31.1 L POC Hct RDW 15.9 H Lymph % (Auto) Lymph # (Auto) 1.0 L PT INR POC Chloride Chloride Carbon Dioxide POC Total CO2 POC BUN BUN 47 H Creatinine 1.7 H POC Creatinine Glucose Calcium 8.5 L Phosphorus Iron TIBC Transferrin % Sat Troponin T Albumin 3.1 L Albumin/Globulin Ratio Hep Bs Antibody Positive A 07/16/18 07/16/18 07/16/18 17:35 17:05 09:36 RBC Hgb Hct POC Hct RDW Lymph % (Auto) Lymph # (Auto) PT 15.0 H INR 1.2 H POC Chloride Chloride Carbon Dioxide POC Total CO2 POC BUN BUN Creatinine POC Creatinine Glucose Calcium Phosphorus Iron TIBC Transferrin % Sat Troponin T 0.19 H* 0.19 H* Albumin Albumin/Globulin Ratio Hep Bs Antibody 07/16/18 07/15/18 07/15/18 04:17 16:35 16:30 RBC Hgb Hct POC Hct RDW Lymph % (Auto) Lymph # (Auto) PT INR POC Chloride Chloride 110 H Carbon Dioxide 20 L 20 L POC Total CO2 POC BUN BUN 44 H 43 H Creatinine 1.9 H 1.8 H POC Creatinine Glucose 62 L 132 H Calcium 8.4 L 8.5 L Phosphorus Iron TIBC Transferrin % Sat Troponin T 0.19 H* Albumin Albumin/Globulin Ratio Hep Bs Antibody 07/15/18 07/15/18 07/14/18 03:39 03:39 18:40 RBC 2.82 L Hgb 7.9 L Hct 24.1 L POC Hct RDW 17.3 H Lymph % (Auto) 14.0 L Lymph # (Auto) 0.8 L PT INR POC Chloride Chloride 111 H Carbon Dioxide 20 L POC Total CO2 POC BUN BUN 43 H Creatinine 1.7 H POC Creatinine Glucose Calcium 8.3 L Phosphorus 4.9 H Iron 26 L TIBC 207 L Transferrin % Sat 12 L Troponin T Albumin 3.0 L Albumin/Globulin Ratio 0.9 L Hep Bs Antibody 07/14/18 07/14/18 18:40 18:40 RBC 3.05 L Hgb 8.6 L Hct 26.0 L POC Hct 25.0 L RDW 17.2 H Lymph % (Auto) 14.3 L Lymph # (Auto) 0.8 L PT INR POC Chloride 112 H Chloride 111 H Carbon Dioxide 19 L POC Total CO2 20 L POC BUN 39 H BUN 44 H Creatinine 1.7 H POC Creatinine 1.6 H Glucose Calcium Phosphorus Iron TIBC Transferrin % Sat Troponin T Albumin Albumin/Globulin Ratio 0.9 L Hep Bs Antibody Meds: Medications Acetaminophen (Tylenol) 650 mg PO Q6HP PRN PRN Reason: PAIN/FEVER > 101 Aspirin (Aspirin) 81 mg PO DAILY COUNTS INCLUDE 234 BEDS AT [facility] Last Admin: 07/17/18 08:00 Dose: Not Given Atorvastatin Calcium (Lipitor) 20 mg PO [facility] Last Admin: 07/16/18 21:42 Dose: 20 mg Belladonna/Phenobarbital (Gi Cocktail) 1 dose PO Q4HP PRN PRN Reason: Dyspepsia Dextrose (Dextrose 50%) 0 ml IV UD PRN PRN Reason: Hypoglycemia Last Admin: 07/17/18 07:58 Dose: 25 ml Diagnostic Test (Pha) (Accu-Chek) 1 each FS [facility] Last Admin: 07/17/18 07:51 Dose: 1 each Enoxaparin Sodium (Lovenox) 40 mg SQ DAILY COUNTS INCLUDE 234 BEDS AT THE [facility] Last Admin: 07/17/18 08:00 Dose: Not Given Furosemide (Lasix) 40 mg IV BIDD COUNTS INCLUDE 234 BEDS AT THE [facility] Last Admin: 07/17/18 07:58 Dose: 40 mg Glucose (Insta-Glucose) 15 gm PO PRN PRN PRN Reason: Hypoglycemia Insulin Glargine (Lantus) 50 unit SQ [facility] Last Admin: 07/16/18 21:42 Dose: Not Given Insulin Human Lispro (Humalog) 0 unit SQ [facility]; Protocol Last Admin: 07/17/18 07:52 Dose: Not Given Iron Sucrose (Venofer) 200 mg IV MoWeFr@0900 COUNTS INCLUDE 234 BEDS AT THE [facility] Last Admin: 07/16/18 09:07 Dose: 200 mg Metolazone (Zaroxolyn) 2.5 mg PO BID@0730,1530 COUNTS INCLUDE 234 BEDS AT THE [facility] Last Admin: 07/17/18 07:53 Dose: Not Given Metoprolol Succinate (Toprol Xl) 25 mg PO DAILY COUNTS INCLUDE 234 BEDS AT THE [facility] Last Admin: 07/17/18 08:00 Dose: Not Given Oxycodone HCl (Roxicodone) 5 mg PO Q4HP PRN PRN Reason: PAIN LEVEL 3-6 Last Admin: 07/16/18 21:43 Dose: 5 mg Pantoprazole Sodium (Protonix) 40 mg PO BIDAC COUNTS INCLUDE 234 BEDS AT THE [facility] Last Admin: 07/17/18 07:53 Dose: Not Given Sodium Chloride (Saline Flush) 10 ml IV Q8 COUNTS INCLUDE 234 BEDS AT THE [facility] Last Admin: 07/17/18 05:38 Dose: 10 ml Spironolactone (Aldactone) 25 mg PO BIDD COUNTS INCLUDE 234 BEDS AT THE [facility] Medical - PN: A/P - Time Spent With Patient Total time spent is greater than 50% in coordination of care (as documented) at patient's floor/unit and/or counseling patient: Greater than 35 minutes (1) Sudden onset of severe abdominal pain Status: Acute Assessment and plan: appears to be UGI in origin with epigastric tenderness and history of H pylori 15 years ago treated with meds for 9 months. HCT low and iron deficient. I gave venofer and also 2 units PRBC. EGD today at 3pm Eventually will also need colonoscopy Current Visit: Yes (2) Bilateral pleural effusion Status: Acute Assessment and plan: 2units PRBC transfusion and diurese in preparation for EGD in AM. Also with probable coronary ischemia will increase goal HCT to 29 clinically improved. cont diuresis for acute Systolic chf exacerbation. Current Visit: Yes (3) Iron deficiency anemia due to chronic blood loss Status: Acute Assessment and plan: replace and looking for source see above. suspect GI blood loss upper. will also need colonoscopy Current Visit: Yes (4) Cirrhosis of liver Status: Acute Assessment and plan: uncertain etiology. Labs as per Dr. Ordonez recommendations Current Visit: Yes (5) Wound of right lower extremity Status: Acute Assessment and plan: exposed tendon. Cont care as per Dr. 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 Likely will proceed with Non invasive cardiac testing prior to angiogram due to comorbidities. Current Visit: Yes (7) Acute systolic CHF (congestive heart failure), NYHA class 1 Problem details: new finding on echo with septal hypokinesis and EF 43% Status : Acute Assessment and plan: will need noninvasive test outpt. I discussed with Dr. Marky Prado MD at [facility]. Due to pts comorbidities of renal disease, liver disease and the open wound, I counseled pt will be better to be sure he has ischemic findings on nuclear test before proceeding with angiogram. Also need to make sure he can have dual antiplatelet therapy and so we are proceeding with EGD today. Current Visit: Yes Medical - PN: Qual - VTE Deep Vein Thrombosis/Pulmonary Embolism Present on Admission: No
[2018-07-17] MEDS ORDERED: KETAMINE 10 MG/ML ML IV PRN (13:50)
[2018-07-17] MEDS ORDERED: MIDAZOLAM 2 MG/2 ML VIAL IV SCH (14:00)
[2018-07-17] MEDS ORDERED: PROPOFOL 200 MG/20 ML VIAL IV SCH (14:00)
[2018-07-17] MEDS ORDERED: PROPOFOL 20 ML IV ONE (15:00)
[2018-07-17] MEDS ORDERED: MIDAZOLAM 2 MG/2 ML VIAL ONE (15:00)
--- NOTE | 2018-07-17 15:33 | Operative Note ---
DATE OF OPERATION: 07/17/2018 PROCEDURE: Esophagogastroduodenoscopy with biopsies. FIRE PREVENTION CAPTAIN AND SANDBLASTER PAINT SPRAYER: Russel Kc M.D. ANESTHETIC USED: Propofol 70 mg IV and Versed 2 mg IV. PREOPERATIVE DIAGNOSIS: The patient with multiple medical problems including heart failure, poorly-controlled diabetes, renal insufficiency, is admitted with epigastric pain and shortness of breath. He has been found to have large bilateral pleural effusions, cirrhotic-appearing liver, and iron deficiency anemia. Please see my note from last night for further details. POSTOPERATIVE DIAGNOSIS: Normal EGD with duodenal biopsies pending to rule out celiac disease. DESCRIPTION OF PROCEDURE: Prior to the procedure, the patient provided his own informed consent. The patient was evaluated and considered medically fit for endoscopy. With the patient in the left lateral decubitus position, a gastroscope was advanced via the mouth through the esophagus under direct vision. The esophagus appears normal throughout its length without ulcer, stricture, mass, hiatal hernia, or varices. The stomach was endoscopically normal, including retroflexed view. The duodenum was normal to the fourth portion. I took four biopsies from the duodenum to rule out celiac disease given his iron deficiency anemia. COMPLICATIONS: None immediate. RECOMMENDATIONS AND FOLLOWUP: I will recommend a colonoscopy once he is thought to be stable from a cardiac view. I understand that the plan is for the patient to go to [place] for investigation of coronary artery disease given that his CAT scan of the abdomen showed dense calcifications in the coronary vessels, and he does have the large bilateral pleural effusions on initial imaging. JCM:riley Job ID: [id number] Doc ID: [id number] Russel Huggins PA-C
[2018-07-17] MEDS: INSULIN GLARGINE, HUMAN 1 UNIT/0.01 ML SQ SCH (20:19)
[2018-07-17] MEDS: ATORVASTATIN 20 MG TABLET PO SCH (20:20)
[2018-07-18 06:55] LABS: Basophils # (Auto) 0 K/mcL (0.0-0.3); Basophils % (Auto) 0.2 % (0.0-2.0); Eosinophils # (Auto) 0.2 K/mcL (0.0-0.7); Eosinophils % (Auto) 3.3 % (0.0-7.0); Granulocytes % (Auto) 72.4 % (38.0-78.0); Lymphocytes # (Auto) 0.9 K/mcL (1.5-4.8); Lymphocytes % (Auto) 15.6 % (15.5-49.0); Mean Cell Volume 85.6 fL (80.0-100.0); Mean Corpuscular HGB Conc 33.7 g/dL (31.0-36.0); Mean Corpuscular Hemoglobin 28.9 pg (26.0-34.0); Monocytes # (Auto) 0.5 K/mcL (0.1-0.9); Monocytes % (Auto) 8.5 % (1.0-12.0); Platelet Count 157 K/mcL (140-440); RBC 3.57 M/mcL (4.50-5.90); Red Cell Distribution Width 16.3 % (11.5-14.5)
[2018-07-18 07:05] LABS: ALT/SGPT 11 U/l (0-40); Albumin/Globulin Ratio 0.9 (1.0-2.3); Alkaline Phosphatase 48 U/L (39-117); Bilirubin,Direct < 0.2 mg/dL (0.0-0.3); Blood Urea Nitrogen 42 mg/dl (8-23); Gamma Glutamyl Transpeptidase 15 U/L (8-61); Uric Acid 8.9 mg/dL (2.5-8.0)
[2018-07-18] MEDS: METOLAZONE 2.5 MG TABLET PO SCH ×2 (07:58→15:26)
[2018-07-18] MEDS: PANTOPRAZOLE 40 MG TABLET PO SCH (07:58)
[2018-07-18] MEDS: FUROSEMIDE 40 MG/4 ML VIAL IV SCH (07:58)
[2018-07-18] MEDS: SPIRONOLACTONE 25 MG TABLET PO SCH (07:58)
[2018-07-18] MEDS: 0.9 % SODIUM CHLORIDE 10 ML SYRINGE IV SCH ×2 (07:59→15:26)
[2018-07-18] MEDS: INSULIN LISPRO 1 UNIT/0.01 ML UNIT SQ SCH ×2 (08:02→11:39)
[2018-07-18] MEDS: ASPIRIN 81 MG TAB.CHEW PO SCH (08:10)
[2018-07-18] MEDS: METOPROLOL SUCCINATE 25 MG TAB.XL.24H PO SCH (08:10)
[2018-07-18] MEDS: IRON SUCROSE COMPLEX 100 MG/5 ML VIAL IV SCH (08:10)
[2018-07-18] MEDS: ENOXAPARIN 40 MG/0.4 ML SYRINGE SQ SCH (08:11)
--- NOTE | 2018-07-18 10:36 | Surgical Pathology Report ---
HISTOLOGY SPECIMEN MICROSCOPIC DIAGNOSIS DUODENUM, BIOPSY: -- DUODENAL MUCOSA WITH NO DIAGNOSTIC ALTERATION. -- NO SUPERFICIAL GASTRIC EPITHELIAL METAPLASIA BY ALCIAN BLUE/PAS STAIN (ADEQUATE TECHNICAL CONTROL). (EBD:djf) COMMENT: The duodenal biopsy shows intact villous architecture without an increase in intraepithelial lymphocytes. No features of celiac are identified. CLINICAL HISTORY Abdominal pain; anemia. PROCEDURAL IMPRESSION Rule out celiac. GROSS DESCRIPTION Received in formalin labeled duodenum rule out celiac, are five [place] tissue fragments from less than 0.1 to 0.4 cm. Entirely submitted in one cassette. (SCB:adj) Electronically Signed by: Meredith Haines M.D.
[2018-07-18 12:14] LABS: Hepatitis B Core Antibody NON-REACTIVE (NON-REACTIVE)
--- NOTE | 2018-07-18 13:05 | Discharge Summary ---
Medical - DS: Prov Patient information: Note initiated : 07/18/18 at 1:01 pm Service Date, if different from initiated Date: [] Patient: Prince Yan 63 y/o M admitted on 07/14/18 for Abdominal Pain/ Bilateral Pleural Effusion. Chief Complaint: [] Date of admission: 07/14/18 23:22 Discharge date: 07/18/18 Primary care physician: Mahamed Huggins Consults: 07/14/18 Consult to Physician [CONS] Stat Comment: Consulting Provider: Syed Stapleton Reason For Exam: Physician to Consult 07/15/18 11:22 Consult to Physician [CONS] Routine Comment: wounds Consulting Provider: Areli cMcormack Reason For Exam: Physician to Consult 07/16/18 18:18 Consult to Physician [CONS] Routine Comment: Consulting Provider: Russel Kc Reason For Exam: Physician to Consult Discharging clinician: Shelia Garcia Medical - DS: Meds - Discharge Medications Prescriptions: Furosemide [Lasix] 40 mg PO DAILY #30 tab Metoprolol Succinate 100 mg PO DAILY #30 tab.er.24h Nitroglycerin [Nitrostat] 0.4 mg SL Q5M PRN #30 tab PRN Reason: Chest Pain oxyCODONE HCL [Roxicodone] 5 mg PO Q4HP PRN #20 tab PRN Reason: severe abdominal pain Potassium Chloride [Kdur] 20 meq PO QAMCC #30 tab Active and Home Medications: Home Medications aspirin 81 mg tablet,delayed release 81 mg PO QDAY tab 04/07/15 [History Confirmed 07/14/18 Last Taken 07/14/18 08:00] lisinopril 20 mg-hydrochlorothiazide 12.5 mg tablet 20 mg PO QDAY 02/03/18 [ History Confirmed 07/14/18 Last Taken 07/14/18 08:00] Pen Needle, Diabetic [Incontrol Pen Needle] 0 b .ROUTE .MEDSUPPLY 02/06/18 [ History Confirmed 07/15/18 Last Taken 04/01/18] Blood Sugar Diagnostic [Contour] 0 dose .ROUTE TID 04/03/18 [History Confirmed 07/14/18 Last Taken 07/14/18 12:00] Insulin Glargine,Hum.rec.anlog [[place]] 50 unit SUB-Q QHS 04/03/18 [ History Confirmed 07/14/18 Last Taken 07/13/18 21:00] Clopidogrel Bisulfate [Plavix] 75 mg PO DAILY 04/04/18 [History Confirmed Last Taken 07/14/18 08:00] Pantoprazole [Protonix] 40 mg PO QAMAC 04/04/18 [History Confirmed 07/14/18 Last Taken 07/14/18 08:00] atorvastatin 20 mg tablet 20 mg PO QDAY #90 tab 05/12/18 [Rx Confirmed 07/14/18 Last Taken 07/14/18 08:00] insulin lispro (U-100) 100 unit/mL subcutaneous pen See Label Instructions SUB- Q .COMPLEX ml 05/29/18 [History Confirmed 07/15/18 Last Taken 07/07/18] Ranitidine HCl [Acid Welder Plasma Arc] 150 mg PO DAILY 07/15/18 [History Confirmed Last Taken 07/14/18 09:00] Medical - DS: Hosp Hospital course: Mr. Yan is a 63 year old M who presents to the ER with abdominal pain starting one day in the afternoon. It culminated at about 6:30 PM was severity making physical exam difficult. Ultrasound could not be done without unusual pain and so he underwent CT scan with contrast excluding abdominal aortic aneurysm. 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 Patient has not had fevers or chills. He does have a chronically ulcerated right dorsal foot and right heel ulcer patient has been seen at the wound clinic with Dr. Hayes Patient denies nausea vomiting he has never had coronary artery disease. He is managed for his cardiac risk factors including diabetes hyperlipidemia and hypertension. The patient was admitted to the hospital for further management. Abdominal pain- Patient has negative CTA of the abdomen, no obvious source noted for pain in the abdomen. He was seen by GI who performed a EGD scopy which was negative, and plan is for colonoscopy after cardiac workup is complete. Dr Kc thought that the abdominal pain could be related to passive congestive hepatomegaly. NSTEMI/ CHF- New onset, Patient has CTA which showed severe atherosclerotic disease, he has risk factors for DM, echo shows mildly reduced lvef, and hypokinetic septal wall, Moderate MR< Trop 0.19, EKG showed ST wave flattening/ mild depression in lateral leads patient is on statin, asa, clopidogren, will start on metoprolol xl 100mg daily , and NTG prn. The case was reviewed by Dr. Marky Prado MD at [facility]. Who noted that given the overall comorbidities, the patient should be evaluated by outpatient cardiology with nuclear stress test before cardiac cath is contemplated. Patient will be referred to cardiology as outpatient. patient is also being started on po lasix and kcl as outpatient. CHF was treated with IV lasix. Anemia- Pt had iron def anemia, s/p transfusion with 2 units with good response , IV iron given in the hospital, biopsy for celiac disease taken by Dr Kc. Lower extremity wound. - Followed by wound care in the hospital, refer to ortho as outpatient for exposed tendons. The rest of the stay in the hospital is uneventful. Discharge diagnosis: Abdominal pain - Time Spent with Patient Total time spent providing and/or coordinating discharge services: Greater than 30 minutes Medical - DS: Exam - Constitutional Vitals: Vital Signs Temp Pulse Pulse Resp BP BP BP 07/18/18 12:00 98.2 F 101 H 20 07/18/18 06:45 96.8 F L 83 16 07/18/18 03:25 97.7 F 88 20 164/83 07/17/18 23:55 98.1 F 93 H 20 162/87 07/17/18 19:40 97.7 F 82 18 166/81 07/17/18 16:00 97.3 F 78 18 07/17/18 15:30 68 16 07/17/18 15:22 85 16 107/54 07/17/18 15:20 70 16 07/17/18 15:00 97.3 F 81 20 145/78 BP Pulse Ox 07/18/18 12:00 152/81 91 07/18/18 06:45 161/87 97 07/18/18 03:25 96 07/17/18 23:55 97 07/17/18 19:40 96 07/17/18 16:00 152/89 94 07/17/18 15:30 121/57 96 07/17/18 15:22 96 07/17/18 15:20 113/87 99 07/17/18 15:00 96 Intake and Output 07/17/18 07/18/18 07/18/18 21:59 05:59 13:59 Intake Total 540 / 540 Output Total 1250 / 1250 625 / 625 700 / 700 Balance -1250 / -1250 -85 / -85 -700 / -700 Intake: Oral 540 / 540 Output: Void Amount 1250 / 1250 625 / 625 700 / 700 Other: Meal ice cream Lunch Percent of Meal Consumed 100% 100% Feeding Ability Independent Independent Urine Appearance Clear Clear Urine Color Pale Pale Urine Odor Normal Normal Stool Size Small Stool Color Brown Stool Consistency Soft # Voids 2 Weight 181 lb 8 oz Additional comments: Constitutional; Afebrile, cooperative, alert, not in distress. Eyes- No icterus, , No periorbital swelling Ears- Ext ear normal, hearing normal to conversation. Neck- Midline trachea, supple Respiratory system: Air Entry equal on both sides, No crackles or wheezing, no rhonchi. CVS- Rate rhythm regular, S1,S2 heard, no gallop, no rub. Abdomen- Soft but has epigastric tenderness, non distended abdomen, no organomegaly, no tenderness, no guarding or rigidity, SHORT ORDER COOK- AOOx3, moving all extremities, no gross focal deficit noted. Medical - DS: Data Labs on day of discharge: Labs from last 24 hours 07/18/18 07/18/18 07/18/18 04:00 04:00 04:00 WBC 6.0 RBC 3.57 L Hgb 10.3 L Hct 30.6 L MCV 85.6 MCH 28.9 MCHC 33.7 RDW 16.3 H Plt Count 157 MPV 9.3 Gran % 72.4 Lymph % (Auto) 15.6 Blount % (Auto) 8.5 Eos % (Auto) 3.3 Baso % (Auto) 0.2 Gran # 4.3 Lymph # (Auto) 0.9 L Blount # (Auto) 0.5 Eos # (Auto) 0.2 Baso # (Auto) 0 Sodium 143 Potassium 4.1 Chloride 107 Carbon Dioxide 22 Anion Gap 14.0 BUN 42 H Creatinine 1.6 H GFR Calculation 45 Glucose 99 Uric Acid 8.9 H Calcium 8.6 Phosphorus 4.2 Magnesium 2.3 Total Bilirubin 0.4 Direct Bilirubin < 0.2 GGT 15 AST 15 ALT 11 Alkaline Phosphatase 48 Lactate Dehydrogenase 213 Total Protein 6.2 Albumin 3.0 L Globulin 3.2 Albumin/Globulin Ratio 0.9 L Triglycerides 179 H Procalcitonin 0.18 DANIEL Screen Hep B Core Total Ab 07/16/18 07/16/18 17:35 17:35 WBC RBC Hgb Hct MCV MCH MCHC RDW Plt Count MPV Gran % Lymph % (Auto) Blount % (Auto) Eos % (Auto) Baso % (Auto) Gran # Lymph # (Auto) Blount # (Auto) Eos # (Auto) Baso # (Auto) Sodium Potassium Chloride Carbon Dioxide Anion Gap BUN Creatinine GFR Calculation Glucose Uric Acid Calcium Phosphorus Magnesium Total Bilirubin Direct Bilirubin GGT AST ALT Alkaline Phosphatase Lactate Dehydrogenase Total Protein Albumin Globulin Albumin/Globulin Ratio Triglycerides Procalcitonin DANIEL Screen Neg <1:80 Hep B Core Total Ab Non-reactive Preliminary micro results at discharge 07/14/18 19:20 Blood Culture - Preliminary Blood 07/14/18 18:45 Blood Culture - Preliminary Blood Medical - DS: A/P - Patient/Caregiver Discharge Instructions Activity: increase activity as tolerated Diet: Low Sodium (2gm), Cardiac, Consistent Carbohydrate Additional Instructions: Please follow low sodium diet You have been started on metoprolol 100mg daily, furosemide and Potassium chloride for your cardiac issues. Please use Nitroglycerine tablets, Keep under the tongue if you develop chest pain, repeat dose in 5 mins if no response, go to the ER if need more than 3 tab FOllow up with cardiology in 1 week Follow up with GI in 4 weeks follow up with ortho in 1 week Go to the ER if chest pain, shortness of breath, fever or any other acute concerns. Other Amb Orders: Wound Care Instructions Location: None Selected - Follow up Plan Follow up with: Mahamed Hgugins PA-C [Primary Care Provider] - Ella Mccormack ARNP [Nurse Practitioner] - 07/22/18 10:00 am Elmer Nixon PA-C [Physician Sterilizer Machine Operator] - 07/21/18 2:00 pm Monty Gaston [Physician] - Russel Kc MD [Physician] - Disposition: Home, Self-Care Prognosis: Fair Rehab Potential: Fair I certify that the patient requires SNF services: No Overall status at discharge: patient is progressing back to baseline Medical - DS: Qual - VTE Deep Vein Thrombosis/Pulmonary Embolism Present on Admission: No
--- NOTE | 2018-07-18 18:45 | Consultation ---
DATE OF CONSULTATION: 07/15/2018 WOUND CARE CONSULT CHIEF COMPLAINT: The patient is seen in consultation at the request of the hospitalist service for management of his right foot wounds. HISTORY OF PRESENT ILLNESS: Mr. Yan is a 63-year-old man who is admitted to [facility], the evening prior to this consult with complaints of abdominal pain and shortness of breath. On admission, the patient was noted to have ascites and bilateral pleural effusions, which are being managed by the hospitalist service. The patient has a known wound on the dorsum of his right foot and right heel ulcer. He is well known to the wound care service and has been followed for these several weeks. He was scheduled to meet with an orthopedic surgeon in [place] on the day of this consult. However, he clearly cannot make that consultation due to his current hospitalization. PAST MEDICAL HISTORY: Significant for hypertension, hyperlipidemia, diabetes and right foot diabetic ulcers. HOME MEDICATIONS: Aspirin, lisinopril, insulin, Plavix, Protonix, atorvastatin. PHYSICAL EXAMINATION: VITAL SIGNS: Temperature 96.4, pulse 98, respirations 24, blood pressure 166/95. O2 saturations 97% on room air. GENERAL: Mr. Yan is not in acute distress, although he does appear to be slightly labored in his breathing. He is alert and oriented and appropriate in conversation with some shortness of breath with speak. CHEST: Breath sounds clear in the upper petit anteriorly slightly diminished at the bases with rales heard. CARDIOVASCULAR: Regular rhythm, tachycardic. EXTREMITIES: There is edema noted of the lower extremities bilaterally. The right foot is dressed with dressings that have been done daily. This was removed showing the dorsal foot wound with granulation tissue at its bed with small area of underlying tendon showing. The main extensor tendon to the foot is extending from the superior aspect of the wound and freely crossing above the wound in the area extending into the dorsum of the foot. The tendon is discolored in the central area that is exposed with yellowing on the ends and graying in the more central area consistent with an appearance of drying out. On the right heel, there is clean wound that encompasses most of the heel with granulation tissue along its entire surface. Granulation tissue is weeping some clear fluid. There is no surrounding erythema of this wound or the one on the dorsum of the foot. No obvious infection. ASSESSMENT AND PLAN: Right diabetic foot ulcers, with exposed extensor tendon on the dorsal foot wound. The patient has been receiving daily dressing care to the wounds. Attention has been given to keep the dorsal wound moist to minimize drying out and progression of thinning of the extensor tendon. This will be continued. Wounds will be cleansed with Vashe soaked gauze first with no Vashe to be placed on the exposed extensor tendon. The wounds will then be dressed with [id number] saline dressings. I have contacted Dr. Espinoza from orthopedic surgery who was on-call and explained the patient's situation to him with the open wound on the dorsum of the foot with the exposed extensor tendon. A consult was requested for evaluation of this. Dr. Espinoza stated that since the wound is chronic and is not acutely infected, this could be managed in an outpatient setting and recommended patient be scheduled for consultation in clinic once his other acute issues have resolved. We will place referral for this consultation. We will follow patient while he remains hospitalized for wound management. RC:darling Job ID: [id number] Doc ID: [id number] Areli Mccormack MD
[2018-07-21 08:33] LABS: Actin (Smooth Muscle) AB IGG <20 U; Ceruloplasmin 31 mg/dL (18-36); Hepatitis A Antibody Total NON-REACTIVE (NON-REACTIVE); Hepatitis B SAB Quant 33 mIU/mL (> OR = 10); Hepatitis B Surface Antigen NON-REACTIVE (NON-REACTIVE); Hepatitis C Virus Antibody NON-REACTIVE (NON-REACTIVE)
[2018-07-21 11:54] LABS: Mitochondrial Antibody Screen NEGATIVE (NEGATIVE)
== END 2018-07-18 15:45 | disposition home or self-care (01) | DRG 391 ==
LOC: ED 18:15 → MEDSUR 23:21
PROVIDERS: ADMIT Internal Medicine; ATTEND Internal Medicine
CPT/HCPCS: 80047; 84145; 85014; 87340; 99231; A6197; J1650; J1756; J1815; J1817; J1940; J2250; J2405; J7030; J7050